=== PATIENT | male | born 1950 | race Caucasian/White ===

== ENCOUNTER → 2022-06-14 | Outpatient (CLI) | payer MEDICARE ==
--- NOTE | 2022-06-14 13:51 | US ---
EXAMINATION TYPE: US kidneys/renal and bladder DATE OF EXAM: 06/14/2022 COMPARISON: NONE CLINICAL INDICATION: Male, 72 years old with history of N28.1 RENAL CYST; h/o renal cysts, states he had a large one removed from the left this past year EXAM MEASUREMENTS: Right Kidney: 9.1 x 4.4 x 5.1 cm Left Kidney: 10.0 x 4.0 x 6.9 cm Right Kidney: 2 anechoic areas seen, probable cysts, largest on superior pole = 3.2 x 2.8 x 2.2cm Left Kidney: anechoic lesion superior pole = 1.7 x 1.3 x 1.1cm Bladder: wnl IMPRESSION: 1. Bilateral renal cysts.
== END | disposition home or self-care (01) ==
LOC: RADUSWWP 13:16
PROVIDERS: ATTEND Urology
DX: N28.1 Cyst of kidney, acquired (principal)
CPT/HCPCS: 76770

== ENCOUNTER → 2023-05-04 | Outpatient (CLI) | payer MEDICARE ==
[2023-05-04 18:15] LABS: HCT 42.6 % (39.6-50.0); MCH 30.1 pg (27.0-32.0); MCHC 32.9 g/dL (32.0-37.0); MCV 91.6 FL (80.0-97.0); Mean Platelet Volume 10.9 FL (9.5-12.2); NRBC Per 100 WBC 0 X 10*3/uL (0.00-0.01); Platelet Count 230 X 10*3/uL (140-440); RBC 4.65 X 10*6/uL (4.40-5.60); RDW 12.9 % (11.5-14.5); WBC 6.61 X 10*3/uL (4.50-10.00)
[2023-05-04 18:42] LABS: Blood Urea Nitrogen 19.5 mg/dL (9.0-27.0); Carbon Dioxide 21.8 mmol/L (21.6-31.8); Chloride 107 mmol/L (96-109); Potassium 4.6 mmol/L (3.5-5.5); Sodium 141 mmol/L (135-145)
[2023-05-05 05:40] LABS: Apolipoprotein A1 140 mg/dL (110 - 205)
[2023-05-08 09:52] LABS: Lipoprotein A <5 mg/dL (0-30)
== END | disposition home or self-care (01) ==
LOC: LABPAT 08:55
PROVIDERS: ATTEND Internal Medicine
DX: Z01.812 Encounter for preprocedural laboratory examination (principal); I25.10 Atherosclerotic heart disease of native coronary artery without angina pectoris; E78.2 Mixed hyperlipidemia
CPT/HCPCS: 36415; 80051; 82172; 82565; 83695; 84520; 85027

== ENCOUNTER 2023-05-16 08:48 | Day surgery (SDC) | payer MEDICARE ==
[~2023-05-16 08:48] MED LIST: ALPRAZolam 0.25 MG TAB PO PRN; ALPRAZolam 0.5 MG TAB PO PRN; ASPIRIN 325 MG TAB PO STA; HEPARIN SODIUM,PORCINE (1 ML) 2,500 UNIT in SODIUM CHLORIDE 0.9% 250 ML IRRIGATION PRN; HEPARIN SODIUM,PORCINE 10,000 UNIT in SODIUM CHLORIDE 0.9% 1,000 ML IRRIGATION PRN; NITROGLYCERIN SL TABS 0.4 MG TAB SUBLINGUAL PRN; SODIUM CHLORIDE 0.9% 1,000 ML in EMPTY BAG 1 BAG IV ONE
[2023-05-16] MEDS: SODIUM CHLORIDE 0.9% 1,000 ML IV ONE (08:57)
[2023-05-16 09:09] LABS: Glucose,Whole Blood 147 mg/dL (70-110)
[2023-05-16 09:41] VITALS: RESP 16; TEMP 97
[2023-05-16] MEDS: MIDAZOLAM 2 MG/2 ML VIAL IVP ONE (13:18)
[2023-05-16] MEDS: fentaNYL (PF) 50 MCG/ML 2 ML AMP IVP ONE (13:18)
[2023-05-16] MEDS: LIDOCAINE 1% INJ 10MG/ML (5 ML VIAL-PF) SQ ONE (13:23)
[2023-05-16] MEDS: VERAPAMIL SYRINGE (5 MG/10 ML) INTRAARTER ONE (13:25)
[2023-05-16] MEDS: HEPARIN SODIUM 1,000 UN/ML (10ML VL) IVP ONE (13:27)
[2023-05-16] MEDS: IOPAMIDOL-370 100ML BTL INJ ONE (13:52)
--- NOTE | 2023-05-16 16:03 | XR ---
EXAMINATION TYPE: XR chest 2V DATE OF EXAM: 05/16/2023 COMPARISON: NONE TECHNIQUE: PA and lateral views submitted. HISTORY: Pre OP cardiac surgery FINDINGS: The lungs are clear and there is no pneumothorax, pleural effusion, or focal pneumonia. Mild cardio megaly and no overt failure. Osseous structures demonstrate hypertrophic and degenerative changes of the spine. IMPRESSION: 1. No acute process.
--- NOTE | 2023-05-16 16:06 | CT ---
EXAMINATION TYPE: CT chest wo con CT DLP: 589 mGycm, Automated exposure control for dose reduction was used. DATE OF EXAM: 05/16/2023 3:57 PM COMPARISON: Chest radiograph from same day. CLINICAL INDICATION:Male, 73 years old with history of Preop Cardiac surgery; PHH, pre-op open heart TECHNIQUE: Multiple axial images were obtained through the chest. Sagittal and coronal reformats were created for review. Contrast used: (None if empty) Oral contrast used: (None if empty) FINDINGS: LUNGS/ PLEURA: The lung parenchyma appears unremarkable. AIRWAY: Patent and unremarkable. HEART: Size within normal limits.Increased density within the coronary arteries may relate to scleros is versus vascular stents. MEDIASTINUM: No gross evidence of adenopathy. VASCULATURE: No aortic aneurysm. MUSCULOSKELETAL: Moderate disc degeneration changes are present throughout the thoracolumbar spine. SOFT TISSUES/LYMPH NODES: Unremarkable. LOWER NECK: No significant findings. UPPER ABDOMEN: No significant findings. IMPRESSION: No evidence of acute process.
[2023-05-16 16:13] LABS: Appearance,Urine Clear (Clear); Bilirubin,Urine Negative (Negative); Blood,Urine Negative (Negative); Color,Urine Colorless; Glucose,Urine (UA) Negative (Negative); Ketones,Urine Negative (Negative); Leukocyte Esterase,Urine Negative (Negative); Mucus,Urine Rare /hpf; Nitrite,Urine Negative (Negative); PH, Urine 5.5 (5.0-8.0); Protein,Urine 1+ (Negative); RBC,Urine <1 /hpf (0-5); Specific Gravity,Urine 1.023 (1.001-1.035); Urobilinogen,Urine <2.0 mg/dL (<2.0)
--- NOTE | 2023-05-16 16:29 | US ---
EXAMINATION TYPE: US vein mapping BIL DATE OF EXAM: 05/16/2023 3:41 PM COMPARISON: NONE CLINICAL INDICATION: Male, 73 years old with history of PreOp Cardiac Surgery; Pre op cardiac surgery SIDE PERFORMED: bilateral TECHNIQUE: Lower extremity saphenous vein is examined and measured utilizing real time linear array sonography. Patient History: Smoker: previous Previous DVT: no Vascular Surgery: no Discoloration: no Hypertension: yes Diabetes: borderline Paralysis: no Varicosities: no Edema: no DUPLEX FINDINGS: Greater Saphenous: Color flow seen Measurements in mm: Right Greater Saphenous: Groin: 5.7 x 6.0 mm High Thigh: 2.6 x 2.9 mm Mid Thigh: 2.8 x 3.2 mm Above Knee: 2.4 x 3.1 mm Knee: 2.3 x 2.6 mm Below Knee: 2.2 x 2.5 mm Mid Calf: 1.6 x 2.3 mm At Ankle: 1.7 x 2.1 mm Left Greater Saphenous: Groin: 5.9 x 5.8 mm High Thigh: 3.0 x 3.4 mm Mid Thigh: 2.5 x 2.9 mm Above Knee: 2.3 x 2.6 mm Knee: 3.1 x 3.0 mm Below Knee: 1.7 x 2.0 mm Mid Calf: 2.1 x 2.4 mm At Ankle: 1.9 x 2.1 mm IMPRESSION: 1. Bilateral GSV measurements listed above. 2. Performing surgeon to determine viability as conduit.
--- NOTE | 2023-05-16 16:30 | US ---
EXAMINATION TYPE: Pre-Operative Non-Invasive Evaluation of the hand for Potential Radial Artery Deondre stern Measurements only DATE OF EXAM: 05/16/2023 3:41 PM CLINICAL INDICATION: Male, 73 years old with history of Left arm measurements only; pre op cardiac norris rgery SIDE PERFORMED: left TECHNIQUE: Radial artery is measured utilizing real time linear array sonography. Dominant hand: Duplex Findings: Radial Artery: Color flow seen Measurements in mm, transverse view: Left Radial: Proximal: 2.7 x 3.3 mm Mid: 3.0 x 3.1 mm Distal: 2.4 x 3.2 mm IMPRESSION: 1. Left radial measurements listed above. 2. Performing surgeon to determine viability as conduit.
--- NOTE | 2023-05-16 16:39 | P.CARDCATH ---
Description of Procedure: PROCEDURES PERFORMED: Left heart catheterization, bilateral coronary angiography, ultrasound guided arterial access INDICATION: Abnormal stress test, coronary artery calcifications CONSENT:I have discussed the risks, benefits and alternative therapies for the above-mentioned procedure and for both sedation/analgesia as well as necessary blood product administration, if indicated, as they pertain to this patient. The patient has indicated understanding and acceptance of the risks and procedures discussed. PROCEDURE: After the risks, benefits and alternatives of the above mentioned procedure explained in detail with the patient, informed consent was obtained. Patient was taken to the catheterization lab and prepped and draped in usual fashion. Ultrasound guidance was used to assess for arterial access. 1% lidocaine was used to anesthetize the right radial artery. A 6-Belarusian sheath was placed in the right radial artery using modified Seldinger technique and ultrasound guidance. Left coronary angiography was performed with a 5-Belarusian JL 3.5 catheter and right coronary angiography was performed with a 5-[place]ian FR5 catheter in various views. A 5-Bel[place]ian FR5 catheter was inserted into the left ventricle and pressure measurements were obtained. The right radial sheath was removed and a TR band was placed with hemostasis achieved. The patient tolerated the procedure well. Patient was transported back to the post catheterization holding area in stable condition. Conscious Sedation: Patient was monitored under the direct supervision of myself for conscious sedation using Versed and fentanyl for a total duration of 14 minutes HEMODYNAMICS: Aorta: 134/72 LV: 138/8, LVEDP 18 SELECTIVE CORONARY ARTERIOGRAPHY: LEFT MAIN: The left main is a large caliber vessel which bifurcates into the LAD and circumflex. There is distal left main 90% stenosis involving the ostium of the LAD and circumflex. LEFT ANTERIOR DESCENDING CORONARY ARTERY: LAD is a large caliber vessel which wraps around to the apex. There is an ostial LAD 90% heavily calcified stenosis. The mid LAD has 40-50% stenosis. LEFT CIRCUMFLEX CORONARY ARTERY: Left circumflex is a large caliber vessel with an ostial 90% circumflex stenosis. The circumflex gives off the PDA and is the dominant vessel. There are mild luminal irregularities of the remainder of the circumflex. RIGHT CORONARY ARTERY: The right coronary artery is a small caliber vessel which gives off an acute marginal branch and is nondominant vessel. There is 100% mid RCA stenosis with right to right collaterals. FINAL IMPRESSION: 1. CAD as described above including 90% left main stenosis, 90% ostial LAD, 90% ostial circumflex, 100% small nondominant RCA stenosis 2. Mildly elevated left sided filling pressures PLAN: 1. Aggressive risk factor modification per most recent ACC/AHA guidelines. 2. Evaluate for CABG
--- NOTE | 2023-05-16 16:55 | P.GSCN ---
History of Present Illness Consult date: 05/16/23 Reason for Consult: Multivessel coronary artery disease with left main disease. Requesting physician: Timmy Bernard History of present illness: This is a 73-year-old gentleman who follows on an outpatient basis for his primary care service with Dr. Chowdhury and with Dr. Bernard for his cardiology care. 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 Recently, the patient has had complaints of heartburn, feeling fatigued and shortness of breath with activity. He denies any recent fever, chills, nausea, vomiting, constipation, headache, cough, hemoptysis, hematemesis, visual disturbances, palpitations, chest pain/pressure, presyncope or syncope. Due to the patient's family history of early onset coronary artery disease and his above-mentioned symptoms he underwent a nuclear Lexiscan Cardiolite stress test which was completed on March 28, 2023 and showed abnormal Lexiscan stress test with inducible inferior and inferior lateral ischemia with a normal left ventricular ejection fraction of 55%. For further evaluation the patient underwent a transthoracic 2D echocardiogram completed on March 29, 2023 which showed a normal left ventricular size and systolic function with an ejection fr action of 55%, mild mitral valve regurgitation, mild mitral annular calcification, trace aortic valve regurgitation, mild to moderate tricuspid valve regurgitation, trace pulmonic valve regurgitation and moderately increased pulmonary artery systolic pressure of 57 mmHg. Subsequently due to the patient's symptoms he was recommended to undergo a cardiac catheterization which was completed today by Dr. Bernard. A cardiac catheterization was completed which showed triple-vessel coronary artery disease with left main disease. Due to the findings on the cardiac catheterization a consult was placed to Dr. Wolfgang Vang from cardiothoracic surgery for further evaluation and treatment recommendations including myocardial revascularization surgery. Review of Systems A 14 point review of systems was completed and was negative except as mentioned in the HPI. 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 History of Any Multi-Drug Resistant Organisms: None Reported Past Surgical History: Bowel Resection, Cholecystectomy, Tonsillectomy Additional Past Surgical History / Comment(s): Kidney cysts removed, colonoscopies, vasectomy. Past Anesthesia/Blood Transfusion Reactions: No Reported Reaction Additional Past Anesthesia/Blood Transfusion Reaction / Comm: Per pt's spouse, he has peridontal disease and teeth could come out easily. Never received blood Past Psychological History: No Psychological Hx Reported Smoking Status: Former smoker (Quit smoking over 50 years ago) Past Alcohol Use History: Rare Past Drug Use History: None Reported - Past Family History Mother Family Medical History: Deep Vein Thrombosis (DVT) Additional Family Medical History / Comment(s): Varicose Father Family Medical History: CVA/TIA, Myocardial Infarction ([place]) Additional Family Medical History / Comment(s): Father of [place] in his 50's. of stroke at 74 Medications and Allergies Home Medications Medication Instructions Recorded Confirmed Type Cholecalciferol [Vitamin D3 (25 25 mcg PO QAM 05/14/23 05/16/23 History Mcg = 1000 Iu)] Clopidogrel Bisulfate [Clopidogrel] 75 mg PO QAM 05/14/23 05/16/23 History Gabapentin 300 mg PO HS 05/14/23 05/16/23 History Losartan Potassium 100 mg PO QAM 05/14/23 05/16/23 History Super B Complex 1 tab PO QAM 05/14/23 05/16/23 History Tamsulosin [Flomax] 0.4 mg PO HS 05/14/23 05/16/23 History amLODIPine BESYLATE 10 mg PO QAM 05/14/23 05/16/23 History metFORMIN HCL [Glucophage] 850 mg PO BID-W/MEALS 05/14/23 05/16/23 History Aspirin 81 mg PO ONCE 05/16/23 05/16/23 History Allergies Allergy/AdvReac Type Severity Reaction Status Date / Time rosuvastatin Allergy Confusion Verified 05/16/23 09:03 Surgical - Exam Vital Signs Temp Pulse Resp BP Pulse Ox 97 F L 67 16 165/78 98 05/16/23 09:07 05/16/23 09:07 05/16/23 09:07 05/16/23 09:07 05/16/23 09:07 - General well developed, well nourished, no distress, no pain, chronically ill, obese - Eyes PERRL, normal ocular movement, no pale, no icteric - ENT normal pinna, normal nares, normal mucosa, no congestion, decreased hearing - Neck Neck is supple, no lymphadenopathy. no masses, no bruits, trachea midline, no venous distension - Respiratory Lungs essentially clear throughout. Respirations are symmetrical and nonlabored. No wheezes, rhonchi or crackles. - Cardiovascular Regular rhythm and rate. S1 and S2 present, negative for S3, gallop or murmur. - Abdomen Abdomen is soft, nontender and nondistended. Active bowel sounds present all 4 abdominal quadrants. No guarding or rigidity. No organomegaly appreciated. - Genitourinary Deferred - Rectum Deferred - Integumentary Skin is warm and dry. No clubbing or cyanosis is present. no rash, no growths, no abnormal pigmentation - Neurologic No focal deficits. - Musculoskeletal Moves all 4 extremities. Residual chronic left-sided weakness from previous TIA. - Psychiatric oriented to time, oriented to person, oriented to place, speech is normal, memory intact Results - Labs Abnormal Lab Results - Last 24 Hours (Table) 05/16/23 05/16/23 Range/Units 09:06 16:00 POC Glucose (mg/dL) 147 H (70-110) mg/dL Urine Protein 1+ H (Negative) Urine Mucus Rare H (None) /hpf - Imaging Additional studies: Cardiac catheterization films reviewed by Dr. Khai Vang. Assessment and Plan Assessment: Multivessel coronary artery disease with left main disease Hypertension Hyperlipidemia History of TIA x 4, with some residual left-sided weakness Diabetes mellitus type 2 History of statin intolerance Abnormal stress test Chronic lower extremity edema Hard of hearing Remote history of nicotine dependence, quit smoking around 50 years ago Benign prostatic hypertrophy Peripheral neuropathy Family history of early onset coronary artery disease with his dad having a myocardial infarction in his mid 50s Plan: The patient was seen and examined in the extended stay unit in conjunction with Dr. Vang from cardiothoracic surgery. The patient's chart and diagnostics were reviewed. The patient's was present at his bedside during Dr. Vang's review of the cardiac catheterization films. Dr. Vang discussed treatment options with the patient and the patient's including myocardial revascularization surgery. The usual course of myocardial vascularization surgery was discussed with the patient, risks and benefits of surgery were discussed, knowing and understanding the risks the patient wished to proceed with the surgical option. The patient is currently on Plavix and would need to be held 5 to 7 days prior to myocardial vascularization surgery. Preoperative testing and preoperative teaching has been initiated. A 5 m walk test was completed with the patient and the patient tolerated well. Time 1: 2.33 seconds, time 2: 2.51 seconds, time 3: 2.71 seconds. A clinical frailty scale risk or was completed with the results showing 2. Medical management and other comorbidities per primary care and cardiology services. Once the patient's preoperative testing has been obtained and reviewed, and STS risk or will be calculated and discussed with the patient. The patient will be discharged home per cardiology and will be scheduled for an elective myocardial vascularization surgery as an outpatient with the date to follow. Thank you Dr. Bernard for this consult and we look forward to working with you in the care of this patient. I have personally seen and examined the patient, performed the documentation and the assessment and plan as written. Number of minutes spent on the visit: 30. ANGELA Alberto Attending Addendum: Pt seen and evaluated with AIRCRAFT ASSEMBLER above. Agree with with his assessment and plan. I spent 45 minutes reviewing the data and plan of care with the patient and care team. We will plan for elective CABG. Time with Patient: Greater than 30
--- NOTE | 2023-05-16 17:26 | US ---
EXAMINATION TYPE: US arterial LE multi level DATE OF EXAM: 05/16/2023 3:59 PM CLINICAL INDICATION: Male, 73 years old with history of Ankle Brachial Index (BECKIE) ; Pre op cardiac s urgery History of: Smoker: no Hypertension: yes Diabetic: yes Hyperlipidemia: no TIA/CVA: yes Previous Vascular Surgery: no PA: no Vascular Ulcers: no Claudication: no Gangrene: no Doppler Waveforms: Right: Multiphasic Left: Multiphasic Pulse Volume Recording: Pressure Gradients: Right Brachial Pressure: deferred Left Brachial Pressure: 157 Ankle-Brachial Indices: Right: 1.25 Left: 1.20 Toe Brachial Indices: Right: 0.83 Left: 0.83 IMPRESSION: 1. Normal ankle-brachial indices bilaterally. 2. Toe brachial indices suggest mild disease.
--- NOTE | 2023-05-16 17:29 | US ---
EXAMINATION TYPE: US carotid duplex BILAT DATE OF EXAM: 05/16/2023 COMPARISON: NONE CLINICAL INDICATION: Male, 73 years old with history of Pre-Op Cardiac Surgery; Pre op cardiac surger y TECHNIQUE: Carotid duplex ultrasound examination. Indirect Doppler criteria was utilized. FINDINGS: EXAM MEASUREMENTS: RIGHT: Peak Systolic Velocity (PSV) cm/sec ----- Right CCA: 72.1 ----- Right ICA: 87.1 ----- Right ECA: 95.6 ICA/CCA ratio: 1.21 RIGHT: End Diastole cm/sec ----- Right CCA: 15.6 ----- Right ICA: 16.9 ----- Right ECA: 0.0 LEFT: Peak Systolic Velocity (PSV) cm/sec ----- Left CCA: 65.8 ----- Left ICA: 69.8 ----- Left ECA: 136 ICA/CCA ratio: 1.06 LEFT: End Diastole cm/sec ----- Left CCA: 11.3 ----- Left ICA: 15.6 ----- Left ECA: 11.7 VERTEBRALS (direction of flow): Right Vertebral: Antegrade Left Vertebral: Antegrade Rhythm: Normal AGRICULTURAL EQUIPMENT SALESPERSON NOTES: Mild plaque bilateral bifurcations. Mildly increased velocities left ECA IMPRESSION: Less than 50% stenosis of bilateral carotid bifurcations. Criteria for Assigning % of Stenosis / Diameter reduction (Estimation based on the indirect measurements of the internal carotid artery velocities (ICA PSV). 1. Normal (no stenosis)=ICA PSV < 125 cm/s: ratio < 2.0: ICA EDV<40 cm/s. 2. Less than 50% stenosis=ICA PSV < 125 cm/s: ratio < 2.0: ICA EDV<40 cm/s. 3. 50 to 69% stenosis=ICA PSV of 125 to 230 cm/s: ration 2.0 ? 4.0: ICA EDV 40-100 cm/s. 4. Greater than 70% stenosis to near occlusion= ICA PSV > 230 cm/s: ratio > 4.0: ICA EDV > 100 cm/s. 5. Near occlusion= ICA PSV velocities may be low or undetectable: variable ratio and ICA EDV. 6. Total occlusion=unable to detect flow.
[2023-05-16 17:58] VITALS: BP 153/70; PULSE 69
--- NOTE | 2023-05-17 09:52 | CA ---
Transthoracic Echo Report Name: Erick Bunn Age: 73 Gender: M : 1950 Exam Date: 05/16/2023 16:23 Exam Location: [place] [facility] Ht (in): 67 Wt (lb): 214 Ordering Physician: Brett Solis Attending/Referring Phys: Will AVILES Production Supervisor Trainee Lotus Mar RDCS Procedure CPT: Indications: preop cardiac surgery Cardiac Hx: Technical Quality: Technically difficult study Contrast 1: Total Dose (mL): Contrast 2: Total Dose (mL): MEASUREMENTS (Male / Female) Normal Values 2D ECHO LV Diastolic Diameter PLAX 3.7 cm 4.2 - 5.9 / 3.9 - 5.3 cm LV Systolic Diameter PLAX 2.5 cm IVS Diastolic Thickness 1.3 cm 0.6 - 1.0 / 0.6 - 0.9 cm LVPW Diastolic Thickness 1.1 cm 0.6 - 1.0 / 0.6 - 0.9 cm LV Relative Wall Thickness 0.7 RV Internal Dim ED PLAX 3.0 cm LA Volume 48.7 cm??? 18 - 58 / 22 - 52 cm??? LA Volume Index 22.4 cm???/m??? 16 - 28 cm???/m??? M-MODE Aortic Root Diameter MM 3.3 cm LA Systolic Diameter MM 4.5 cm LA Ao Ratio MM 1.3 AV Cusp Separation MM 2.0 cm DOPPLER AV Peak Velocity 110.4 cm/s AV Peak Gradient 4.9 mmHg AV Mean Velocity 75.8 cm/s AV Mean Gradient 2.5 mmHg AV Velocity Time Integral 23.9 cm LVOT Peak Velocity 105.4 cm/s LVOT Peak Gradient 4.4 mmHg LVOT Velocity Time Integral 24.3 cm MV Area PHT 2.8 cm??? Mitral E Point Velocity 72.3 cm/s Mitral A Point Velocity 106.4 cm/s Mitral E to A Ratio 0.7 MV Deceleration Time 266.7 ms MV E' Velocity 5.1 cm/s Mitral E to MV E' Ratio 14.3 TR Peak Velocity 230.9 cm/s TR Peak Gradient 21.3 mmHg Right Ventricular Systolic Press 26.3 mmHg FINDINGS Left Ventricle Mildly increased left ventricular wall thickness. Left ventricular cavity size normal. Normal left ventricular systolic function with no obvious regional wall motion abnormalities. Left ventricular ejection fraction is estimated at 55-60 %. Grade 1 diastolic dysfunction. Right Ventricle Normal right ventricular size and function. Right ventricular systolic pressure within normal limits. Right Atrium Normal right atrial size. Left Atrium Normal left atrial size. Mitral Valve Structurally normal mitral valve. No mitral stenosis, regurgitation or prolapse. Aortic Valve Trileaflet aortic valve. No aortic stenosis. Trace aortic regurgitation. Tricuspid Valve Structurally normal tricuspid valve. Mild tricuspid regurgitation. Pulmonic Valve Structurally normal pulmonic valve. Trace pulmonic regurgitation. Pericardium No pericardial effusion. Aorta Normal size aortic root and proximal ascending aorta. CONCLUSIONS Technically difficult study. Left ventricular ejection fraction is estimated at 55-60 %. Grade 1 diastolic dysfunction. Normal RV size and function No significant valvular dysfunction No pericardial effusion. . Previewed by: Dr Herman Dow (Electronically Signed) Final Date: 17 May 2023 09:51
== END 2023-05-16 17:25 | disposition home or self-care (01) ==
LOC: CATHCVL 08:48
PROVIDERS: ATTEND Internal Medicine
DX: I08.3 Combined rheumatic disorders of mitral, aortic and tricuspid valves (principal); I25.10 Atherosclerotic heart disease of native coronary artery without angina pectoris; I10 Essential (primary) hypertension; G40.909 Epilepsy, unspecified, not intractable, without status epilepticus; E78.5 Hyperlipidemia, unspecified; E11.42 Type 2 diabetes mellitus with diabetic polyneuropathy; I25.2 Old myocardial infarction; N40.0 Benign prostatic hyperplasia without lower urinary tract symptoms; F17.200 Nicotine dependence, unspecified, uncomplicated; Z79.02 Long term (current) use of antithrombotics/antiplatelets; Z79.84 Long term (current) use of oral hypoglycemic drugs; Z85.038 Personal history of other malignant neoplasm of large intestine; Z86.73 Personal history of transient ischemic attack (TIA), and cerebral infarction without residual deficits; Z79.899 Other long term (current) drug therapy
CPT/HCPCS: 94150; 93306; 93458; 76937; 81001; 87070; 71046; 93931; 93970; 93922; 93880; 71250; 99152; C1769; C1894; J2250; J2001; J3010; J1644; Q9967

== ENCOUNTER → 2023-05-23 | Outpatient (CLI) | payer MEDICARE ==
[2023-05-23 09:31] LABS: Prothrombin Time 10.5 sec (10.0-12.5)
[2023-05-23 16:25] LABS: HCT 45.2 % (39.6-50.0); HGB 14.8 g/dL (13.0-17.0); MCH 30.3 pg (27.0-32.0); MCHC 32.7 g/dL (32.0-37.0); MCV 92.4 FL (80.0-97.0); Mean Platelet Volume 11.1 FL (9.5-12.2); NRBC Per 100 WBC 0 X 10*3/uL (0.00-0.01); Platelet Count 253 X 10*3/uL (140-440); RBC 4.89 X 10*6/uL (4.40-5.60); RDW 12.8 % (11.5-14.5); WBC 6.84 X 10*3/uL (4.50-10.00)
[2023-05-23 16:44] LABS: ALT 43 U/L (10-49); AST 29 U/L (14-35); Albumin 4.4 g/dL (3.8-4.9); Albumin/Globulin Ratio 1.76 Ratio (1.60-3.17); Alkaline Phosphatase 85 U/L (41-126); BUN/Creat Ratio 16.92 Ratio (12.00-20.00); Calcium 10.5 mg/dL (8.7-10.3); Chloride 108 mmol/L (96-109); Chol/HDL Ratio 3.39 Ratio; Globulin 2.5 g/dL (1.6-3.3); Glucose 188 mg/dL (70-110); Hepatitis A Antibody IgM Nonreactive (Nonreactive); Hepatitis B Core IgM Nonreactive (Nonreactive); Hepatitis B Surface Antigen Nonreactive (Nonreactive); Hepatitis C IgG Antibody Nonreactive (Nonreactive); LDL Cholesterol,Calculated 57.9 mg/dL (0.0-131.0); Magnesium 1.5 mg/dL (1.5-2.4); Potassium 4.6 mmol/L (3.5-5.5); Sodium 141 mmol/L (135-145); Total Bilirubin 0.3 mg/dL (0.3-1.2); Total Protein 6.9 g/dL (6.2-8.2)
[2023-05-23 17:13] LABS: Appearance,Urine Clear (Clear); Bilirubin,Urine Negative (Negative); Blood,Urine Negative (Negative); Color,Urine Dark Yellow (Yellow); Ketones,Urine Negative (Negative); Nitrite,Urine Negative (Negative); Specific Gravity,Urine 1.019 (1.001-1.030); Urobilinogen,Urine 0.2 E.U./DL
[2023-05-23 17:16] LABS: Bacteria,Urine None Seen (None Seen)
== END | disposition home or self-care (01) ==
LOC: LABPAT 08:45
PROVIDERS: ATTEND Thoracic Surgery (Cardiothoracic Vascular Surgery)
DX: Z01.812 Encounter for preprocedural laboratory examination (principal)
CPT/HCPCS: 36415; 80053; 80061; 80074; 81001; 83036; 83735; 84443; 85027; 85610; 85730; 86850; 86900; 86901; 86920; 87086

== ENCOUNTER 2023-05-28 08:00 | Inpatient (IN) | payer MEDICARE ==
[2023-05-29] MEDS: METOPROLOL TARTRATE 12.5 MG TAB PO ONE (06:10)
[2023-05-29] MEDS: ATORVASTATIN 10 MG TAB PO ONE (06:10)
[2023-05-29] MEDS: LACTATED RINGERS 1,000 ML IV ONE (06:15)
[2023-05-29 06:35] LABS: Glucose,Whole Blood 149 mg/dL (70-110)
[2023-05-29] MEDS ORDERED: SUCCINYLCHOLINE CHLORIDE 200 MG/10 ML VIAL IV ONE (07:55)
[2023-05-29] MEDS ORDERED: VECURONIUM 10 MG VIAL IV ONE (07:55)
[2023-05-29] MEDS ORDERED: HEPARIN SODIUM,PORCINE 10,000 UNIT/ML 1 ML VIAL ONE (07:55)
[2023-05-29] MEDS ORDERED: fentaNYL (PF) 50 MCG/ML 50 ML VIAL ONE (07:55)
[2023-05-29] MEDS ORDERED: ePHEDrine 50 MG/ML 1 ML VIAL ONE (07:55)
[2023-05-29] MEDS ORDERED: PROPOFOL 10 MG/ML 20 ML VIAL IV ONE (07:55)
[2023-05-29] MEDS ORDERED: MIDAZOLAM HCL 10 MG/10 ML VIAL ONE (07:55)
[2023-05-29] MEDS ORDERED: PROTAMINE SULFATE 10 MG/ML 25 ML VIAL IV ONE (07:55)
[2023-05-29] MEDS ORDERED: PHENYLEPHRINE 10 MG/ML VIAL ONE (07:55)
[2023-05-29] MEDS: PAPAVERINE 360 MG in SODIUM CHLORIDE 0.9% 90 ML IV ONE (07:58)
[2023-05-29] MEDS: SODIUM CHLORIDE 0.9% 500 ML 500 ML with HEPARIN SODIUM,PORCINE (1 ML) 5,000 UNIT IV ONE (07:58)
[2023-05-29] MEDS: ceFAZolin 1,000 MG in SODIUM CHLORIDE 0.9% 1,000 ML IRRIGATION ONE (07:58)
[2023-05-29] MEDS: SODIUM CHLORIDE 0.9% 50 ML with ceFAZolin 2,000 MG IV ONE (07:58)
[2023-05-29 08:41] LABS: ABG Base Excess -3.9 mmol/L; ABG Glucose Whole Blood 136 mg/dL (75-99); ABG HCO3 21 mmol/L (21-25); ABG Hematocrit 37 % (34.0-46.0); ABG Ionized Calcium 5.1 mg/dL (4.5-5.3); ABG Lactic Acid Whole Blood 1.7 mmol/L (0.5-1.6); ABG PCO2 35 mmHg (35-45); ABG PH 7.38 (7.35-7.45); ABG PO2 162 mmHg (83-108); ABG Potassium Whole Blood 4.9 mmol/L (3.4-4.5); ABG Sodium Whole Blood 140 mmol/L (135-146); Allen Test Performed? Yes
[2023-05-29 09:29] LABS: ABG Base Excess -4.9 mmol/L; ABG Glucose Whole Blood 129 mg/dL (75-99); ABG HCO3 21 mmol/L (21-25); ABG Hematocrit 36 % (34.0-46.0); ABG Oxygen Saturation 98.3 % (94-97); ABG PCO2 41 mmHg (35-45); ABG PH 7.32 (7.35-7.45); ABG PO2 133 mmHg (83-108); ABG Potassium Whole Blood 4.8 mmol/L (3.4-4.5); ABG Sodium Whole Blood 139 mmol/L (135-146); Allen Test Performed? Yes
[2023-05-29 09:55] LABS: ABG Base Excess -4.5 mmol/L; ABG Glucose Whole Blood 151 mg/dL (75-99); ABG HCO3 21 mmol/L (21-25); ABG Hematocrit 37 % (34.0-46.0); ABG Lactic Acid Whole Blood 1.8 mmol/L (0.5-1.6); ABG Oxygen Saturation 98.9 % (94-97); ABG PCO2 38 mmHg (35-45); ABG PH 7.35 (7.35-7.45); ABG PO2 154 mmHg (83-108); ABG Potassium Whole Blood 4.7 mmol/L (3.4-4.5); ABG Sodium Whole Blood 139 mmol/L (135-146); Allen Test Performed? Yes
[2023-05-29 10:25] LABS: ABG Base Excess -4.6 mmol/L; ABG Glucose Whole Blood 144 mg/dL (75-99); ABG HCO3 20 mmol/L (21-25); ABG Hematocrit 36 % (34.0-46.0); ABG Lactic Acid Whole Blood 1.4 mmol/L (0.5-1.6); ABG Oxygen Saturation 98.5 % (94-97); ABG PCO2 36 mmHg (35-45); ABG PH 7.36 (7.35-7.45); ABG PO2 137 mmHg (83-108); ABG Sodium Whole Blood 140 mmol/L (135-146); Allen Test Performed? Yes
[2023-05-29 10:54] LABS: ABG Base Excess -4.4 mmol/L; ABG Glucose Whole Blood 136 mg/dL (75-99); ABG HCO3 20 mmol/L (21-25); ABG Hematocrit 36 % (34.0-46.0); ABG Lactic Acid Whole Blood 1.5 mmol/L (0.5-1.6); ABG Oxygen Saturation 98.8 % (94-97); ABG PCO2 35 mmHg (35-45); ABG PH 7.37 (7.35-7.45); ABG PO2 127 mmHg (83-108); ABG Sodium Whole Blood 141 mmol/L (135-146); Allen Test Performed? Yes
--- NOTE | 2023-05-29 10:54 | P.ANPRN ---
Procedure Note - Anesthesia - Invasive Line Right Central Line Time Out Performed: Yes (0732) Date of Procedure: 05/29/23 Time of Procedure: 07:33 Location of Patient: Phase I Preparation: Sterile Prep, Sterile Dressing Central Line Location: Internal Jugular (right IJ Cordis) Ultrasound Used: Yes Purpose - Visualization and Identification of Vasculature: Yes Needle Guage: 18g angio Image Stored and Saved: Yes Narrative: Invasive line placement per sterile protocol utilized. Anesthesia note Procedure: Right internal jugular central venous catheter insertion: 8.5-Gabones[place] Cordis Sterile protocol followed. Right neck prepped. Ultrasound used. Lidocaine 1% used. Using ultrasound local anesthetic was instilled site over right Internal Jugular vein. Angiocath was used to gain access via ultrasound. Once free flow non-pulsatile blood flow was confirmed, 12 inch extension tubing was then placed on Angiocath. Once central venous pressure was confirmed, J-wire was then placed through Angiocath. Angiocath was then withdrawn. Local was instilled at J-wire site. Small skin wagner was then made with provided sterile scalpel. 8.5- [place] Cordis was then inserted over the wire while maintaining control of wire at all times. Uneventful insertion with dilation. Free flow nonpulsatile blood flow through Cordis. Hooked up to IV tubing. Secured with suture. Dressings applied. Drapes Removed. Attempts x1.
--- NOTE | 2023-05-29 10:55 | P.ANPRN ---
Procedure Note - Anesthesia - Invasive Line Right [place] Time Out Performed: Yes (0732) Date of Procedure: 05/29/23 Time of Procedure: 07:41 Location of Patient: Phase I Preparation: Sterile Prep, Sterile Dressing [place] Line Location: Internal Jugular (right IJ) Ultrasound Used: No Purpose - Visualization and Identification of Vasculature: No Image Stored and Saved: No Narrative: Invasive line placement per sterile protocol utilized. Anesthesia note Procedure right [place] catheter placed through right internal jugular central venous catheter Sterile protocol maintained from previous procedure. [place] catheter sterilely placed in sheath and flushed prior to insertion. After advancing 15 cm [place] catheter was then slowly inserted with balloon up. Advanced through CVP, RV to PA waveform. [place] catheter wedged around 54 cm. Balloon down. Catheter withdrawn 5 cm. . No wedge. Proximal and distal sites locked on sheath. Attempts x1. Sterile drapes removed and dressings applied.
--- NOTE | 2023-05-29 10:56 | P.ANPRN ---
Procedure Note - Anesthesia - JADA Intraop Pre Bypass JADA Intraop - Anesthesia Indication: cabg off pump Date of Procedure: 05/29/23 Pre-operative Diagnosis: cad Post-operative Diagnosis: same Surgeon: Khai Vang Left Ventricle: wnl Ejection Fraction: Normal Regional Wall Motion Abnormalities: None Left Ventricle Hypertrophy: No R. Ventricle Function: Normal Anatomy: Trileaflet Aortic Stenosis: None Aortic Regurgitation: None Mitral Stenosis: None Mitral Regurgitation: None Tricuspid Stenosis: None Tricuspid Regurgitation: Trace Pulmonic Stenosis: None Pulmonic Regurgitation: None R. Atrial Dilation: No R. Atrial PFO: No L. Atrial Dilation: No Aortic Dissection: No Aortic Calcification: None Plural Effusion: None
[2023-05-29 11:36] LABS: ABG Base Excess -4.8 mmol/L; ABG Glucose Whole Blood 137 mg/dL (75-99); ABG HCO3 20 mmol/L (21-25); ABG Hematocrit 34 % (34.0-46.0); ABG Ionized Calcium 4.8 mg/dL (4.5-5.3); ABG Lactic Acid Whole Blood 1.8 mmol/L (0.5-1.6); ABG Oxygen Saturation 95.9 % (94-97); ABG PCO2 37 mmHg (35-45); ABG PH 7.35 (7.35-7.45); ABG PO2 78 mmHg (83-108); ABG Potassium Whole Blood 3.6 mmol/L (3.4-4.5); ABG Sodium Whole Blood 141 mmol/L (135-146); Allen Test Performed? Yes
[2023-05-29 11:46] LABS: ABG Lactic Acid Whole Blood 2.2 mmol/L (0.5-1.6)
[2023-05-29] MEDS ORDERED: Magnesium Replacement Protocol 1 EACH MISC MISCELLANE PRN (11:51)
[2023-05-29] MEDS ORDERED: hydrALAZINE HCL 20 MG/ML 1 ML VIAL IVP PRN (11:51)
[2023-05-29] MEDS ORDERED: DEXTROSE 50% SYRINGE 50 ML IVP PRN ×2 (11:51)
[2023-05-29] MEDS ORDERED: METOCLOPRAMIDE 5 MG/ML 2 ML VIAL IVP PRN (11:51)
[2023-05-29] MEDS ORDERED: Potassium Replacement Protocol 1 EACH MISC MISCELLANE PRN (11:51)
[2023-05-29] MEDS ORDERED: IPRATROPIUM-ALBUTEROL 3 ML NEB INHALATION PRN (11:51)
[2023-05-29] MEDS ORDERED: ONDANSETRON 4 MG/2 ML VIAL IVP PRN (11:51)
[2023-05-29] MEDS ORDERED: BENZOCAINE/MENTHOL LOZENG 1 EACH LOZENGE MUCOUS MEM PRN (11:51)
--- NOTE | 2023-05-29 11:58 | P.OP ---
Date of Procedure: 05/29/23 Preoperative Diagnosis: 3v CAD HTN HLD DM TIA BPH Colon CA Postoperative Diagnosis: Same Procedure(s) Performed: 1. Off pump coronary artery bypass grafting x 4. Left internal thoracic artery (in-situ) to left anterior descending coronary artery. Radial artery from aorta to obtuse marginal artery. Saphenous vein from aorta to posterior descending coronary artery. 2. Left atrial appendage ligation using #35mm AtriClip 3. Endoscopic left radial and right greater saphenous vein harvest 4. Graft flow measurements using the medi-stim flow meter system 5. Trans-esophageal echo Implants: #35 AtriClip Anesthesia: GETA Surgeon: Khai Vang Railway Signal Operator #1: Brett Solis Railway Signal Operator #2: Christoph Jean-Baptiste Estimated Blood Loss (ml): 250 Pathology: none sent Condition: critical Disposition: ICU Indications for Procedure: This patient is a 73 year-old M with a the PMH noted above who developed worsening SOB and fatigue. He underwent stress test which was positive. Coronary angiography revealed significant 3v CAD. His STS risk of morbidity and mortality was discussed with the patient and he was in agreement to proceed with CABG which is what we recommended. Operative Findings: JODI 1.75mm good conduit. LAD 1.5mm good target. BOO-LAD Flow 72ml/min, P.I. 2.4 Radial artery 2.25mm good conduit. OM 1.6mm good target. RA-OM Flow 56ml/min, P.I. 1.6 Saphenous vein 2.25mm good conduit. PDA 1.5mm good target. CAM 1.0mm not great targets. SVG-PDA Flow 12ml/min, P.I. 3.1 Description of Procedure: The patient underwent central line, right radial arterial line, and [place] Swetha catheter placement in the pre-operative suite by the anesthesia team. The patient was then brought to the operating room and placed in the supine position. General anesthesia was induced and the patient was prepped from the chin to the ankles in the usual sterile fashion. A time-out was performed and antibiotics were given. A midline incision was made on the chest and carried down to bone. A median sternotomy was performed. Hemostasis on the bone was achieved using electrocautery. The left pleura was entered and the left internal thoracic artery was harvested in a skeletonized fashion. Simultaneously a physician curriculum assistant harvested the RIGHT greater saphenous vein and left radial artery in an endoscopic fashion. The patient was systemically heparinized and the JODI was transected and placed in a papaverine jacuzzi. A left sided chest tube was placed. The pericardium was incised in a reverse T-fashion and a pericardial cradle was created. The right pleura was opened. Stay sutures were placed. #35mm AtriClip was placed on the left atrial appendage. With ACT > 250, the octopus stabilizer was placed on the mid LAD which was a good target. An ateriorotomy was made and 1.5mm shunt inserted. An end to side anastomosis between the JODI and LAD was performed using a running 7-0 prolene. The shunt was removed prior to tieing down the suture. Next stay sutures were placed on the diaphragm near the IVC and oblique sinus. The posterior descending coronary artery was exposed and appeared to be a good target. The postero-lateral branches of the circumflex coronary artery were too small for bypass. An arteriorotomy was made and it was a good target. 1.5mm shunt was insered and an end to side anastomosis between the saphenous vein and PDA was performed using a running 7-0 prolene again removing the shunt prior to tieing down the suture. Next, the obtuse marginal artery was exposed and stabilized. It was somewhat disease but a good target. Arteriotomy was made and 1.5mm shunt was inserted. An end to side anastomosis between the radial and the OM was constructed using a running 7-0 prolene. Again, shunt was removed without difficulty. Next, the heartstring device was used to create aortotomy x 2 and both the radial and saphenous vein were fastened to the ascending aorta in an end to side fashion using a running 5-0 prolene. Both heartstring devices were retrieved prior to tying down the suture. Graft flows were measured and they were excellent. At this point, protamine was given and hemostasis was secured. A 32F chest tube and 19F david were placed in the mediastinum and right pleura respectively. Temporary v-wires were placed on the anterior RV. The pericardium was reapproximated partially and the sternum was closed with pioneer cables and layers of suture. The leg was closed in layers as well. The patient tolerated the procedure without any significant hypotension and was transferred to CVICU in critical condition on only nitro gtt.
[2023-05-29] MEDS: NITROGLYCERIN-D5W PMX 50 MG in DEXTROSE/WATER 1 250ML.BAG IV SCH (12:04)
[2023-05-29 12:07] LABS: Glucose,Whole Blood 136 mg/dL (70-110)
[2023-05-29] MEDS: INSULIN REGULAR 100 UNIT in SODIUM CHLORIDE 0.9% 100 ML IV SCH (12:20)
[2023-05-29 12:34] LABS: Ionized Calcium 4.9 mg/dL (4.5-5.3)
[2023-05-29] MEDS: IPRATROPIUM-ALBUTEROL 3 ML NEB INHALATION SCH (12:34)
[2023-05-29 12:35] LABS: ABG Base Excess -5.7 mmol/L; ABG HCO3 20 mmol/L (21-25); ABG PCO2 39 mmHg (35-45); ABG PH 7.33 (7.35-7.45); ABG PO2 147 mmHg (83-108); ABG TCO2 22 mmol/L (19-24); Allen Test Performed? Yes
[2023-05-29 12:35] LABS: INR 1.2 (<1.2); Partial Thromboplastin Time 24.7 sec (22.0-30.0); Prothrombin Time 12.4 sec (10.0-12.5)
[2023-05-29 12:40] LABS: ABG Oxygen Saturation 98.2 % (94-97)
[2023-05-29 12:49] LABS: Basophils # (A) 0.1 k/uL (0-0.2); Basophils % (A) 1 %; Eosinophils # (A) 0.2 k/uL (0-0.7); Eosinophils % (A) 2 %; HCT 33.8 % (39.0-53.0); HGB 11.2 gm/dL (13.0-17.5); Lymphocytes # (A) 1.3 k/uL (1.0-4.8); Lymphocytes % (A) 12 %; MCHC 33.1 g/dL (31.0-37.0); MCV 93.6 fL (80.0-100.0); Monocytes # (A) 0.4 k/uL (0-1.0); Monocytes % (A) 4 %; Neutrophils # (A) 9.1 k/uL (1.3-7.7); Neutrophils % (A) 81 %; Platelet Count 170 k/uL (150-450); RBC 3.61 m/uL (4.30-5.90); RDW 12.7 % (11.5-15.5); WBC 11.2 k/uL (3.8-10.6)
[2023-05-29] MEDS: AMIODARONE 360 MG in DEXTROSE 5% IN WATER 200 ML IV ONE (12:52)
[2023-05-29 12:54] LABS: ALT 146 U/L (4-49); AST 169 U/L (17-59); African American GFR (CKD) 73 (>60 ml/min/1.73 sqM); Albumin 3.5 g/dL (3.5-5.0); Alkaline Phosphatase 52 U/L (38-126); Anion Gap 11 mmol/L; Blood Urea Nitrogen 21 mg/dL (9-20); Calcium 8.4 mg/dL (8.4-10.2); Carbon Dioxide 16 mmol/L (22-30); Chloride 112 mmol/L (98-107); Glucose 132 mg/dL (74-99); Magnesium 1.4 mg/dL (1.6-2.3); Non-African American GFR(CKD) 64 (>60 ml/min/1.73 sqM); Sodium 139 mmol/L (137-145); Total Bilirubin 0.3 mg/dL (0.2-1.3); Total Protein 5.7 g/dL (6.3-8.2)
[2023-05-29] MEDS: LACTATED RINGERS 1,000 ML IV SCH (12:56)
[2023-05-29 13:03] LABS: Glucose,Whole Blood 136 mg/dL (70-110)
--- NOTE | 2023-05-29 13:22 | XR ---
EXAMINATION TYPE: XR chest 1V portable DATE OF EXAM: 05/29/2023 12:54 PM CLINICAL INDICATION:Male, 73 years old with history of Post Operative Cardiac Surgery; [facility] COMPARISON: 05/16/2023. TECHNIQUE: XR chest 1V portable Frontal view of the chest. FINDINGS: Lungs/Pleura: There is no evidence of pleural effusion, focal consolidation, or pneumothorax. Pulmonary vascularity: Unremarkable. Heart/mediastinum: Cardiomediastinal silhouette is prominent in size. Left atrial appendage occlusion device is present. Musculoskeletal: Multiple level degenerative disc disease changes seen throughout the spine. Midline sternotomy wires are noted. Other findings: None Lines/Tubes: Endotracheal tube with distal tip 4.3 cm above the trav. Nasogastric tube with its distal tip and side-port projecting under the diaphragm. Drainage tubes with tips projecting over the mediastinum. Bilateral thoracotomy tubes are present without evidence of pneumothorax. There is a [place]-Swetha catheter with tip projecting over the spine. IMPRESSION: Postsurgical changes lines and tubes as above. No evidence for acute process.
[2023-05-29] MEDS: ACETAMINOPHEN IV (For NPO) 1,000 MG in EMPTY BAG 1 BAG IVPB SCH (13:34)
--- NOTE | 2023-05-29 14:00 | P.CNPUL ---
History of Present Illness Consult date: 05/29/23 Requesting physician: Khai Vang Reason for consult: other Chief complaint: ICU management/ventilator management. History of present illness: Pulmonary consult dated May 29, 2023. 73-year-old male seen in the intensive care unit, room 260. He just came back from the operating room, having had an off-pump three-vessel bypass surgery, with Dr. Vang. The patient had a BOO to LAD bypass, left radial to obtuse marginal bypass, and SVG to PDA bypass. The patient is on the mechanical venti lator. Ventilator settings include volume assist-control, rate 18, tidal volume 400, FiO2 70%, PEEP of 5. Blood gases show pO2 147, pCO2 of 39, pH is 7.33. The patient's cardiac output is 5.5 with an index of 2.6. The patient is on insulin drip at 1 unit an hour, nitroglycerin at 5 mcg/min, lactated Ringer's at 50 cc an hour, propofol at 25 mcg/kg/min, and amiodarone at 1 mg/min. The patient has a history of hypertension, hyperlipidemia, TIA, with some residual left-sided weakness, diabetes mellitus, BPH, peripheral neuropathy, colon cancer status post colon resection, and a family history of cardiac disease. Current labs include a white count 11.2, hemoglobin 11.2, hematocrit 33.8, and a platelet count is 170,000. Sodium 139, potassium 4, chlorides 112, CO2 16, BUN 21, and creatinine 1.13. Glucose is 136. Albumin is 3.5. His x-ray shows some postsurgical changes, without anything acute. Endotracheal tube is 4 cm above the trav. Review of Systems REVIEW OF SYSTEMS: Cannot be obtained as the patient is currently on the ventilator. CONSTITUTIONAL: [Negative.] NEUROLOGIC: [ Negative.] HEENT: [ Negative.] CARDIAC: [Negative.] PULMONARY: [Negative.] GI: [Negative.] : [Negative.] RHEUMATOLOGIC: [ Negative.] IMMUNOLOGIC: [ Negative.] ENDOCRINE: [Negative. 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 Past Anesthesia/Blood Transfusion Reactions: No Reported Reaction Additional Past Anesthesia/Blood Transfusion Reaction / Comment(s): Per pt's spouse, he has peridontal disease and teeth could come out easily. Never received blood Smoking Status: Former smoker - Past Family History Father Family Medical History: CVA/TIA, Myocardial Infarction ([place]) Additional Family Medical History / Comment(s): of CVA at 74. father of [place] in his 50s. Mother Family Medical History: Deep Vein Thrombosis (DVT) Additional Family Medical History / Comment(s): varicose veins. Medications and Allergies Home Medications Medication Instructions Recorded Confirmed Type Cholecalciferol [Vitamin D3 (25 25 mcg PO QAM 05/14/23 05/23/23 History Mcg = 1000 Iu)] Clopidogrel Bisulfate [Clopidogrel] 75 mg PO QAM 05/14/23 05/23/23 History Gabapentin 300 mg PO BID 05/14/23 05/23/23 History Losartan Potassium 100 mg PO QAM 05/14/23 05/23/23 History Super B Complex 1 tab PO QAM 05/14/23 05/23/23 History Tamsulosin [Flomax] 0.4 mg PO HS 05/14/23 05/23/23 History amLODIPine BESYLATE 10 mg PO QAM 05/14/23 05/23/23 History metFORMIN HCL [Glucophage] 850 mg PO BID-W/MEALS 05/14/23 05/23/23 History Enoxaparin Sodium 100 mg SQ BID 05/23/23 05/23/23 History Metoprolol Succinate (ER) [Toprol 25 mg PO DIRECTED 05/28/23 05/28/23 History XL] Allergies Allergy/AdvReac Type Severity Reaction Status Date / Time rosuvastatin Allergy Confusion Verified 05/23/23 09:13 Physical Exam Osteopathic Statement: *. No significant issues noted on an osteopathic structural exam other than those noted in the History and Physical/Consult. Vitals: Vital Signs Temp Pulse Pulse Resp BP BP Pulse Ox 05/29/23 13:30 96.4 F L 69 23 100 05/29/23 13:15 71 24 97 05/29/23 13:00 70 23 95 05/29/23 12:45 69 20 98 05/29/23 12:38 05/29/23 12:36 67 20 05/29/23 12:30 69 32 H 99 05/29/23 12:28 68 20 05/29/23 12:15 95.4 F L 66 18 100 05/29/23 12:10 05/29/23 12:09 05/29/23 12:00 05/29/23 06:01 97.9 F 70 16 163/78 158/75 97 FiO2 05/29/23 13:30 05/29/23 13:15 05/29/23 13:00 05/29/23 12:45 70 05/29/23 12:38 70 05/29/23 12:36 05/29/23 12:30 05/29/23 12:28 05/29/23 12:15 100 05/29/23 12:10 100 05/29/23 12:09 100 05/29/23 12:00 100 05/29/23 06:01 Intake and Output 05/28/23 05/29/23 05/29/23 22:59 06:59 14:59 Intake Total 100 53 Output Total 700 Balance 100 -647 Intake: IV 100 53 Output: Urine 300 Estimated Blood Loss 400 Other: Weight 97 kg ABP, PAP, CO, CI - Last 8 Hours Arterial Blood Pressure 109/50 Arterial Blood Pressure 111/54 Arterial Blood Pressure 113/52 Arterial Blood Pressure 115/53 Arterial Blood Pressure 120/47 Arterial Blood Pressure 107/52 Pulmonary Artery Pressure 33/20 Pulmonary Artery Pressure 33/21 Pulmonary Artery Pressure 31/22 Pulmonary Artery Pressure 33/23 Pulmonary Artery Pressure 30/17 Pulmonary Artery Pressure 29/21 Cardiac Output 5.5 Cardiac Index 2.6 No acute distress, sedated, with an orally placed endotracheal tube. HEENT examination is grossly unremarkable. Neck supple. Full range of motion. No adenopathy thyromegaly or neck vein distention. Cardiovascular examination reveals regular rhythm rate. S1-S2 normal. No S3 or S4. No discernible murmur noted. Heart rate 69 bpm. Lungs reveal clear breath sounds. Breath sounds are equal bilaterally. No adventitious lung sounds including wheezes rhonchi or crackles. Saturations are 100%. Abdomen soft without bowel sounds. No masses. Extremities are intact. No cyanosis clubbing or edema. Skin is without rash or lesion. Neurologic examination cannot be adequately assessed at this time. Results - Laboratory Findings CBC and BMP: 05/29/23 12:14 05/29/23 12:14 ABG ABG pH 7.33 (7.35-7.45) L 05/29/23 12:33 ABG pCO2 39 mmHg (35-45) 05/29/23 12:33 ABG pO2 147 mmHg (83-108) H 05/29/23 12:33 ABG O2 Saturation 98.2 % (94-97) H 05/29/23 12:33 PT/INR, D-dimer PT 12.4 sec (10.0-12.5) 05/29/23 12:14 INR 1.2 (<1.2) H 05/29/23 12:14 Abnormal lab findings: Abnormal Labs 05/23/23 05/29/23 05/29/23 08:56 06:18 12:06 WBC RBC Hgb Hct Neutrophils # INR ABG pH ABG pO2 ABG HCO3 ABG O2 Saturation Chloride Carbon Dioxide BUN Glucose POC Glucose (mg/dL) 149 H 136 H Magnesium AST ALT Total Protein Crossmatch See Detail 05/29/23 05/29/23 05/29/23 12:14 12:14 12:14 WBC 11.2 H RBC 3.61 L Hgb 11.2 L Hct 33.8 L Neutrophils # 9.1 H INR 1.2 H ABG pH ABG pO2 ABG HCO3 ABG O2 Saturation Chloride 112 H Carbon Dioxide 16 L BUN 21 H Glucose 132 H POC Glucose (mg/dL) Magnesium 1.4 L AST 169 H ALT 146 H Total Protein 5.7 L Crossmatch 05/29/23 05/29/23 12:33 13:02 WBC RBC Hgb Hct Neutrophils # INR ABG pH 7.33 L ABG pO2 147 H ABG HCO3 20 L ABG O2 Saturation 98.2 H Chloride Carbon Dioxide BUN Glucose POC Glucose (mg/dL) 136 H Magnesium AST ALT Total Protein Crossmatch - Diagnostic Findings Chest x-ray: image reviewed Assessment and Plan Assessment: Postop day #0, status post off-pump three-vessel bypass surgery. Routine postoperative ventilator management. History of hypertension. History of hyperlipidemia. History of type 2 diabetes mellitus. History of TIA x 4, with residual left-sided weakness. History of BPH. History of peripheral neuropathy. History of colon cancer, status post colon resection. Plan: Plan dated May 29, 2023. The patient is seen today in room 260. Labs, x-rays, and medications are reviewed. The patient's cardiac output is 5.5. The cardiac index is 2.6. Blood gases show pO2 of 147, pCO2 of 39, pH is 7.33, on 100% oxygen. The patient's FiO2 is turned down to 70%. The patient continues on insulin at 1 unit an hour, nitroglycerin at 5 mcg/min, lactated Ringer's at 50 cc an hour, propofol at 25 mcg/kg/min, and amiodarone at 1 mg/min. We will continue to follow, and make recommendations along the way. I suspect the patient will be relatively quick extubation. We will continue to follow. Time with Patient: Greater than 30
[2023-05-29] MEDS: SODIUM BICARB 8.4% 50 ML SYR (1 MEQ/ML) IV STA (14:01)
[2023-05-29] MEDS: MAGNESIUM SULFATE-D5W PMX 1 GM in DEXTROSE/WATER 1 100ML.BAG IVPB SCH (14:01)
[2023-05-29] MEDS: CLEVIDIPINE BUTYRATE 25 MG in EMPTY BAG 1 BAG IV SCH (14:12)
[2023-05-29 14:13] LABS: Glucose,Whole Blood 158 mg/dL (70-110)
[2023-05-29] MEDS: DEXMEDETOMIDINE/0.9% NACL(PMX) 400 MCG in EMPTY BAG 1 BAG IV SCH (14:39)
[2023-05-29 15:09] LABS: Glucose,Whole Blood 186 mg/dL (70-110)
[2023-05-29 15:30] LABS: Basophils # (A) 0.1 k/uL (0-0.2); Basophils % (A) 1 %; Eosinophils % (A) 0 %; HGB 11.6 gm/dL (13.0-17.5); Lymphocytes # (A) 0.7 k/uL (1.0-4.8); Lymphocytes % (A) 8 %; MCHC 33.1 g/dL (31.0-37.0); MCV 93.7 fL (80.0-100.0); Monocytes # (A) 0.4 k/uL (0-1.0); Monocytes % (A) 5 %; Neutrophils # (A) 8.5 k/uL (1.3-7.7); Neutrophils % (A) 86 %; Platelet Count 183 k/uL (150-450); RBC 3.73 m/uL (4.30-5.90); RDW 12.6 % (11.5-15.5); WBC 9.8 k/uL (3.8-10.6)
[2023-05-29] MEDS: HEPARIN SODIUM,PORCINE 5,000 UNIT/ML 1 ML VIAL SQ SCH (16:14)
[2023-05-29 16:51] LABS: ABG Base Excess -6.3 mmol/L; ABG HCO3 20 mmol/L (21-25); ABG PCO2 39 mmHg (35-45); ABG PH 7.32 (7.35-7.45); ABG PO2 77 mmHg (83-108); ABG TCO2 21 mmol/L (19-24); Allen Test Performed? Yes
[2023-05-29 16:53] LABS: ABG Oxygen Saturation 95.4 % (94-97)
[2023-05-29 17:08] LABS: Glucose,Whole Blood 190 mg/dL (70-110)
[2023-05-29 18:11] LABS: Glucose,Whole Blood 179 mg/dL (70-110)
[2023-05-29] MEDS: AMIODARONE 450 MG in DEXTROSE 5% IN WATER 250 ML IV SCH (18:20)
[2023-05-29 18:21] LABS: Basophils % (A) 0 %; Eosinophils % (A) 0 %; HCT 34.9 % (39.0-53.0); HGB 11.6 gm/dL (13.0-17.5); Lymphocytes # (A) 0.4 k/uL (1.0-4.8); Lymphocytes % (A) 3 %; MCH 30.9 pg (25.0-35.0); MCHC 33.2 g/dL (31.0-37.0); MCV 93.3 fL (80.0-100.0); Monocytes # (A) 0.4 k/uL (0-1.0); Monocytes % (A) 4 %; Neutrophils # (A) 9.6 k/uL (1.3-7.7); Neutrophils % (A) 92 %; Platelet Count 190 k/uL (150-450); RBC 3.74 m/uL (4.30-5.90); RDW 12.7 % (11.5-15.5); WBC 10.4 k/uL (3.8-10.6)
--- NOTE | 2023-05-29 18:55 | P.CONS ---
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 Patient tolerated the procedure well without any immediate postoperative complications. Patient was admitted to the ICU vented, on insulin drip, nitroglycerin drip, propofol, amiodarone (per protocol), and lactated Ringer's. Patient seen and examined at bedside. He is currently on Precedex drip due to agitation. He does wake up and tells me he is not short of breath but he is having some back pain but no overt chest pain. He then falls back asleep Due to sedation most of the information is obtained through thorough record r eview, discussion with the nurse, and review of prior records and outpatient evaluations. Vital signs reviewed General: ill appaering, mild distress, appears at stated age Derm: warm, dry Eyes: EOMI, no lid lag, anicteric sclera, pupils equal round reactive to light ENT: Nose and ears atraumatic Cardiovascular: S1S2 reg, no murmur, no edema Lungs: Decreased bs bilateral, no rhonchi, no rales, no wheeze, no accessory muscle use Abdominal: soft, nontender to palpation, no guarding Ext: no gross muscle atrophy, no contractures Neuro: CN II-XII grossly intact, No focal neuro deficits Psych: lethargic, appropriate affect Assessment/Plan: 73-year-old male status post 4 vessel coronary artery bypass grafting Transaminitis Coronary artery disease Hypertension Dyslipidemia -Currently on amiodarone drip and nitroglycerin drip -Aspirin 325 mg daily, Lipitor 40 mg daily, Plavix 75 mg daily, Lopressor 12.5 mg twice daily -Pulmonary consultation reviewed -Await further CT surgery recommendations -Repeat CMP in a.m. Acute blood loss anemia, anticipated outcome of surgery -No indication for transfusion at this time -Repeat CBC in a.m. Diabetes mellitus type 2 with neuropathy -Hemoglobin A1c 7.5 -Hold metformin, patient is not chronically on insulin -Continue with insulin drip fpr 48 hours after surgery - follow BS Chronic: History of CVA x 4 History of seizure disorder History of colon cancer in the past Imaging: Chest x-ray is reviewed by myself demonstrates postsurgical changes with ET tube in place Data Review: Labs reviewed include CBC with hemoglobin 11.6, CMP with carbon dioxide 16, blood sugar 136, magnesium 1.4, AST 169, ALT 146 Thank you for allowing us to participate in the care of this pleasant patient. Do not hesitate to contact us with questions. Someone can be reached from the [facility] hospitalist group all hours of the day at [phone] or via [employer]. This dictation was prepared using [employer] voice recognition software. Though every attempt is made to correct errors during dictation some may still exist. Past Medical History Past Medical History: Coronary Artery Disease (CAD), Cancer, CVA/TIA, Diabetes Mellitus, Hearing Disorder / Deafness, Hyperlipidemia, Hypertension, Prostate Disorder, Renal Disease, Seizure Disorder Additional Past Medical History / Comment(s): Small vessel disease/CVA x 4 then seizures/last seizure years ago and has weakness L side-ambulates independently, NIDDM type II, Neuropathy bilateral legs/feet, BPH, colon cancer/surgery-approx 2018 no radiation or chemo, kidney cysts, peridontal disease-no active infections History of Any Multi-Drug Resistant Organisms: None Reported Past Surgical History: Bowel Resection, Cholecystectomy, Heart Catheterization, Tonsillectomy Additional Past Surgical History / Comment(s): Kidney cysts removed, colonoscopies. Past Anesthesia/Blood Transfusion Reactions: No Reported Reaction Additional Past Anesthesia/Blood Transfusion Reaction / Comm: Per pt's spouse, he has peridontal disease and teeth could come out easily. Never received blood Smoking Status: Former smoker - Past Family History Father Family Medical History: CVA/TIA, Myocardial Infarction (AK) Additional Family Medical History / Comment(s): of CVA at 74. father of AK in his 50s. Mother Family Medical History: Deep Vein Thrombosis (DVT) Additional Family Medical History / Comment(s): varicose veins. Medications and Allergies Home Medications Medication Instructions Recorded Confirmed Type Cholecalciferol [Vitamin D3 (25 25 mcg PO QAM 05/14/23 05/23/23 History Mcg = 1000 Iu)] Clopidogrel Bisulfate [Clopidogrel] 75 mg PO QAM 05/14/23 05/23/23 History Gabapentin 300 mg PO BID 05/14/23 05/23/23 History Losartan Potassium 100 mg PO QAM 05/14/23 05/23/23 History Super B Complex 1 tab PO QAM 05/14/23 05/23/23 History Tamsulosin [Flomax] 0.4 mg PO HS 05/14/23 05/23/23 History amLODIPine BESYLATE 10 mg PO QAM 05/14/23 05/23/23 History metFORMIN HCL [Glucophage] 850 mg PO BID-W/MEALS 05/14/23 05/23/23 History Enoxaparin Sodium 100 mg SQ BID 05/23/23 05/23/23 History Metoprolol Succinate (ER) [Toprol 25 mg PO DIRECTED 05/28/23 05/28/23 History XL] Allergies Allergy/AdvReac Type Severity Reaction Status Date / Time rosuvastatin Allergy Confusion Verified 05/23/23 09:13 Physical Exam Osteopathic Statement: *. No significant issues noted on an osteopathic structural exam other than those noted in the History and Physical/Consult. Vitals: Vital Signs Temp Pulse Pulse Resp BP BP Pulse Ox 05/29/23 17:30 92 L 05/29/23 17:15 85 12 93 L 05/29/23 17:00 85 14 92 L 05/29/23 16:45 86 12 94 L 05/29/23 16:30 81 27 H 93 L 05/29/23 16:15 83 23 94 L 05/29/23 16:01 05/29/23 16:00 98.8 F 81 29 H 94 L 05/29/23 15:45 79 21 93 L 05/29/23 15:40 05/29/23 15:30 76 26 H 95 05/29/23 15:20 05/29/23 15:15 77 29 H 95 05/29/23 15:11 05/29/23 15:10 79 26 H 05/29/23 15:00 77 18 97 05/29/23 14:45 75 18 100 05/29/23 14:30 73 19 99 05/29/23 14:15 97.2 F L 73 21 100 05/29/23 14:00 72 18 98 05/29/23 13:45 71 22 100 05/29/23 13:30 96.4 F L 69 23 100 05/29/23 13:15 71 24 97 05/29/23 13:00 70 23 95 05/29/23 12:45 69 20 98 05/29/23 12:38 05/29/23 12:36 67 20 05/29/23 12:30 69 32 H 99 05/29/23 12:28 68 20 05/29/23 12:15 95.4 F L 66 18 100 05/29/23 12:10 05/29/23 12:09 05/29/23 12:00 05/29/23 06:01 97.9 F 70 16 163/78 158/75 97 FiO2 05/29/23 17:30 05/29/23 17:15 05/29/23 17:00 05/29/23 16:45 05/29/23 16:30 05/29/23 16:15 05/29/23 16:01 50 05/29/23 16:00 50 05/29/23 15:45 05/29/23 15:40 50 05/29/23 15:30 05/29/23 15:20 60 05/29/23 15:15 05/29/23 15:11 50 05/29/23 15:10 05/29/23 15:00 60 05/29/23 14:45 05/29/23 14:30 05/29/23 14:15 05/29/23 14:00 05/29/23 13:45 05/29/23 13:30 05/29/23 13:15 05/29/23 13:00 05/29/23 12:45 70 05/29/23 12:38 70 05/29/23 12:36 05/29/23 12:30 05/29/23 12:28 05/29/23 12:15 100 05/29/23 12:10 100 05/29/23 12:09 100 05/29/23 12:00 100 05/29/23 06:01 Intake and Output 05/29/23 05/29/23 05/29/23 06:59 14:59 22:59 Intake Total 100 554.693 423.953 Output Total 985 335 Balance 100 -430.307 88.953 Intake: IV 100 524.5 401.5 ACETAMINOPHEN IV (For NPO 100 ) 1,000 mg In Empty Bag 1 bag @ 400 mls/hr IVPB Q6H [facility] Rx#:[id number] CO/CI 90 70 Lactated Ringers 1,000 ml 150 150 @ 50 mls/hr IV .Q20H [facility] Rx#:[id number] Magnesium Sulfate-D5w Pmx 100 100 1 gm In Dextrose/Water 1 100ml.bag @ 100 mls/hr IVPB Q1H [facility] Rx#: [id number] Nitroglycerin-D5w Pmx 50 4.5 4.5 mg In Dextrose/Water 1 250ml.bag @ 5 MCG/MIN 1.5 mls/hr IV .Q24H [facility] Rx#: [id number] ceFAZolin 2 gm In Sodium 50 Chloride 0.9% 50 ml @ 100 mls/hr IVPB Q8HR [facility] Rx# :[id number] pressure bag 27 27 Intake, IV Titration 30.193 22.453 Amount Dexmedetomidine/0.9% NaCl 6.467 (Pmx) 400 mcg In Empty Bag 1 bag @ Titrate IV . Q0M [facility] Rx#:[id number] Insulin Regular 100 unit 1.869 8.711 In Sodium Chloride 0.9% 100 ml @ Per Protocol IV .Q0M [facility] Rx#:[id number] propofoL 1,000 mg In 28.324 7.275 Empty Bag 1 bag @ Titrate IV .Q0M [facility] Rx#: [id number] Output: Chest Tube Drainage 185 200 Mediastinal 120 70 left and right 65 130 Urine 400 135 Estimated Blood Loss 400 Other: Weight 97 kg ABP, PAP, CO, CI - Last 8 Hours Arterial Blood Pressure 117/57 Arterial Blood Pressure 114/65 Arterial Blood Pressure 175/84 Arterial Blood Pressure 127/64 Arterial Blood Pressure 124/59 Arterial Blood Pressure 117/57 Arterial Blood Pressure 113/56 Arterial Blood Pressure 107/52 Arterial Blood Pressure 110/56 Arterial Blood Pressure 118/59 Arterial Blood Pressure 117/55 Arterial Blood Pressure 115/53 Arterial Blood Pressure 109/52 Arterial Blood Pressure 108/52 Arterial Blood Pressure 105/50 Arterial Blood Pressure 109/50 Arterial Blood Pressure 111/54 Arterial Blood Pressure 113/52 Arterial Blood Pressure 115/53 Arterial Blood Pressure 120/47 Arterial Blood Pressure 107/52 Pulmonary Artery Pressure 35/26 Pulmonary Artery Pressure 39/32 Pulmonary Artery Pressure 48/34 Pulmonary Artery Pressure 41/28 Pulmonary Artery Pressure 32/24 Pulmonary Artery Pressure 32/23 Pulmonary Artery Pressure 33/26 Pulmonary Artery Pressure 33/23 Pulmonary Artery Pressure 34/24 Pulmonary Artery Pressure 37/26 Pulmonary Artery Pressure 34/22 Pulmonary Artery Pressure 33/23 Pulmonary Artery Pressure 33/21 Pulmonary Artery Pressure 33/21 Pulmonary Artery Pressure 34/20 Pulmonary Artery Pressure 33/20 Pulmonary Artery Pressure 33/21 Pulmonary Artery Pressure 31/22 Pulmonary Artery Pressure 33/23 Pulmonary Artery Pressure 30/17 Pulmonary Artery Pressure 29/21 Cardiac Output 6.1 Cardiac Output 5.9 Cardiac Output 6.4 Cardiac Output 5.5 Cardiac Index 2.9 Cardiac Index 2.8 Cardiac Index 3.1 Cardiac Index 2.6 Results CBC & Chem 7: 05/29/23 18:10 05/29/23 18:10 Labs: Abnormal Lab Results - Last 24 Hours (Table) 05/23/23 05/29/23 05/29/23 Range/Units 08:56 06:18 12:06 WBC (3.8-10.6) k/uL RBC (4.30-5.90) m/uL Hgb (13.0-17.5) gm/dL Hct (39.0-53.0) % Neutrophils # (1.3-7.7) k/uL Lymphocytes # (1.0-4.8) k/uL INR (<1.2) ABG pH (7.35-7.45) ABG pO2 (83-108) mmHg ABG HCO3 (21-25) mmol/L ABG O2 Saturation (94-97) % Chloride (98-107) mmol/L Carbon Dioxide (22-30) mmol/L BUN (9-20) mg/dL Glucose (74-99) mg/dL POC Glucose (mg/dL) 149 H 136 H (70-110) mg/dL Magnesium (1.6-2.3) mg/dL AST (17-59) U/L ALT (4-49) U/L Total Protein (6.3-8.2) g/dL Crossmatch See Detail 05/29/23 05/29/23 05/29/23 Range/Units 12:14 12:14 12:14 WBC 11.2 H (3.8-10.6) k/uL RBC 3.61 L (4.30-5.90) m/uL Hgb 11.2 L (13.0-17.5) gm/dL Hct 33.8 L (39.0-53.0) % Neutrophils # 9.1 H (1.3-7.7) k/uL Lymphocytes # (1.0-4.8) k/uL INR 1.2 H (<1.2) ABG pH (7.35-7.45) ABG pO2 (83-108) mmHg ABG HCO3 (21-25) mmol/L ABG O2 Saturation (94-97) % Chloride 112 H (98-107) mmol/L Carbon Dioxide 16 L (22-30) mmol/L BUN 21 H (9-20) mg/dL Glucose 132 H (74-99) mg/dL POC Glucose (mg/dL) (70-110) mg/dL Magnesium 1.4 L (1.6-2.3) mg/dL AST 169 H (17-59) U/L ALT 146 H (4-49) U/L Total Protein 5.7 L (6.3-8.2) g/dL Crossmatch 05/29/23 05/29/23 05/29/23 Range/Units 12:33 13:02 14:11 WBC (3.8-10.6) k/uL RBC (4.30-5.90) m/uL Hgb (13.0-17.5) gm/dL Hct (39.0-53.0) % Neutrophils # (1.3-7.7) k/uL Lymphocytes # (1.0-4.8) k/uL INR (<1.2) ABG pH 7.33 L (7.35-7.45) ABG pO2 147 H (83-108) mmHg ABG HCO3 20 L (21-25) mmol/L ABG O2 Saturation 98.2 H (94-97) % Chloride (98-107) mmol/L Carbon Dioxide (22-30) mmol/L BUN (9-20) mg/dL Glucose (74-99) mg/dL POC Glucose (mg/dL) 136 H 158 H (70-110) mg/dL Magnesium (1.6-2.3) mg/dL AST (17-59) U/L ALT (4-49) U/L Total Protein (6.3-8.2) g/dL Crossmatch 05/29/23 05/29/23 05/29/23 Range/Units 15:05 15:08 16:49 WBC (3.8-10.6) k/uL RBC 3.73 L (4.30-5.90) m/uL Hgb 11.6 L (13.0-17.5) gm/dL Hct 35.0 L (39.0-53.0) % Neutrophils # 8.5 H (1.3-7.7) k/uL Lymphocytes # 0.7 L (1.0-4.8) k/uL INR (<1.2) ABG pH 7.32 L (7.35-7.45) ABG pO2 77 L (83-108) mmHg ABG HCO3 20 L (21-25) mmol/L ABG O2 Saturation (94-97) % Chloride (98-107) mmol/L Carbon Dioxide (22-30) mmol/L BUN (9-20) mg/dL Glucose (74-99) mg/dL POC Glucose (mg/dL) 186 H (70-110) mg/dL Magnesium (1.6-2.3) mg/dL AST (17-59) U/L ALT (4-49) U/L Total Protein (6.3-8.2) g/dL Crossmatch 05/29/23 05/29/23 Range/Units 17:07 18:10 WBC (3.8-10.6) k/uL RBC (4.30-5.90) m/uL Hgb (13.0-17.5) gm/dL Hct (39.0-53.0) % Neutrophils # (1.3-7.7) k/uL Lymphocytes # (1.0-4.8) k/uL INR (<1.2) ABG pH (7.35-7.45) ABG pO2 (83-108) mmHg ABG HCO3 (21-25) mmol/L ABG O2 Saturation (94-97) % Chloride (98-107) mmol/L Carbon Dioxide (22-30) mmol/L BUN (9-20) mg/dL Glucose (74-99) mg/dL POC Glucose (mg/dL) 190 H 179 H (70-110) mg/dL Magnesium (1.6-2.3) mg/dL AST (17-59) U/L ALT (4-49) U/L Total Protein (6.3-8.2) g/dL Crossmatch
[2023-05-29 19:04] LABS: Glucose,Whole Blood 166 mg/dL (70-110)
[2023-05-29 20:13] LABS: Glucose,Whole Blood 141 mg/dL (70-110)
[2023-05-29] MEDS: GABAPENTIN 300 MG CAP PO SCH (20:32)
[2023-05-29] MEDS: SENNOSIDES-DOCUSATE SODIUM 1 EACH TAB PO SCH (20:33)
[2023-05-29 21:15] LABS: Glucose,Whole Blood 137 mg/dL (70-110)
[2023-05-29 22:07] LABS: Glucose,Whole Blood 135 mg/dL (70-110)
[2023-05-29 23:05] LABS: Glucose,Whole Blood 138 mg/dL (70-110)
[2023-05-30 00:10] LABS: Glucose,Whole Blood 133 mg/dL (70-110)
[2023-05-30 01:13] LABS: Glucose,Whole Blood 141 mg/dL (70-110)
[2023-05-30 02:13] LABS: Glucose,Whole Blood 141 mg/dL (70-110)
[2023-05-30 03:10] LABS: Glucose,Whole Blood 134 mg/dL (70-110)
[2023-05-30 04:10] LABS: Glucose,Whole Blood 123 mg/dL (70-110)
[2023-05-30 05:18] LABS: Glucose,Whole Blood 126 mg/dL (70-110)
[2023-05-30 05:30] LABS: Basophils % (A) 0 %; Eosinophils % (A) 0 %; HCT 36.2 % (39.0-53.0); HGB 11.9 gm/dL (13.0-17.5); Lymphocytes # (A) 0.9 k/uL (1.0-4.8); Lymphocytes % (A) 8 %; MCH 30.6 pg (25.0-35.0); MCHC 32.8 g/dL (31.0-37.0); MCV 93.2 fL (80.0-100.0); Mean Platelet Volume 8.4; Monocytes # (A) 0.6 k/uL (0-1.0); Monocytes % (A) 5 %; Neutrophils # (A) 9.9 k/uL (1.3-7.7); Neutrophils % (A) 86 %; Platelet Count 202 k/uL (150-450); RBC 3.89 m/uL (4.30-5.90); RDW 12.7 % (11.5-15.5); WBC 11.6 k/uL (3.8-10.6)
[2023-05-30 05:42] LABS: ALT 123 U/L (4-49); AST 88 U/L (17-59); African American GFR (CKD) 71 (>60 ml/min/1.73 sqM); Albumin 3.2 g/dL (3.5-5.0); Alkaline Phosphatase 50 U/L (38-126); Anion Gap 9 mmol/L; Blood Urea Nitrogen 18 mg/dL (9-20); Calcium 8.6 mg/dL (8.4-10.2); Carbon Dioxide 18 mmol/L (22-30); Chloride 110 mmol/L (98-107); Glucose 125 mg/dL (74-99); Magnesium 1.9 mg/dL (1.6-2.3); Non-African American GFR(CKD) 62 (>60 ml/min/1.73 sqM); Potassium 4.1 mmol/L (3.5-5.1); Sodium 137 mmol/L (137-145); Total Bilirubin 0.4 mg/dL (0.2-1.3); Total Protein 5.5 g/dL (6.3-8.2)
[2023-05-30 06:15] LABS: Glucose,Whole Blood 146 mg/dL (70-110)
[2023-05-30] MEDS: ALBUMIN HUMAN 5% 250 ML in EMPTY BAG 1 BAG IVPB PRN (06:17)
[2023-05-30] MEDS: MAGNESIUM SULFATE-D5W PMX 1 GM in DEXTROSE/WATER 1 100ML.BAG IVPB ONE (06:25)
[2023-05-30 06:59] LABS: Glucose,Whole Blood 167 mg/dL (70-110)
[2023-05-30] MEDS: IPRATROPIUM-ALBUTEROL 3 ML NEB INHALATION SCH (07:57)
[2023-05-30 08:16] LABS: Glucose,Whole Blood 163 mg/dL (70-110)
[2023-05-30] MEDS: AMIODARONE 200 MG TAB PO SCH (08:18)
[2023-05-30] MEDS: ASPIRIN 325 MG TAB PO SCH (08:18)
[2023-05-30] MEDS: CHOLECALCIFEROL 25 MCG (1000 IU) TABLET PO SCH (08:18)
[2023-05-30] MEDS: CLOPIDOGREL 75 MG TAB PO SCH (08:18)
[2023-05-30] MEDS: ATORVASTATIN 40 MG TAB PO SCH (08:18)
[2023-05-30] MEDS: ACETAMINOPHEN TAB 325 MG TAB PO PRN (08:19)
[2023-05-30] MEDS: METOPROLOL TARTRATE 25 MG TAB PO SCH (08:19)
[2023-05-30] MEDS: PANTOPRAZOLE 40 MG/10 ML VIAL IVP SCH (08:20)
[2023-05-30] MEDS ORDERED: MAGNESIUM HYDROXIDE 2,400 MG/30 ML CUP PO PRN (09:00)
[2023-05-30] MEDS ORDERED: METOPROLOL TARTRATE 12.5 MG TAB PO SCH (09:00)
[2023-05-30] MEDS ORDERED: bisacodyL 10 MG SUPP RECTAL PRN (09:00)
[2023-05-30 09:08] LABS: Glucose,Whole Blood 152 mg/dL (70-110)
--- NOTE | 2023-05-30 09:37 | XR ---
EXAMINATION TYPE: XR chest 1V portable DATE OF EXAM: 05/30/2023 5:10 AM CLINICAL INDICATION:Male, 73 years old with history of Post Operative Cardiac Surgery; LOCATED WITHIN [facility] COMPARISON: Chest radiograph from one day prior. TECHNIQUE: XR chest 1V portable Frontal view of the chest. FINDINGS: Lungs/Pleura: There is no evidence of pleural effusion, focal consolidation, or pneumothorax. Pulmonary vascularity: Unremarkable. Heart/mediastinum: Cardiomediastinal silhouette is enlarged and stable. Left atrial appendage occlusi on device is present. Musculoskeletal: Multiple level degenerative disc disease changes seen throughout the spine. Midline sternotomy wires are noted. Other findings: None Lines/Tubes: Interval removal of the endotracheal tube. Interval removal of the enteric tube, Drainage tubes with tips projecting over the mediastinum. Bilateral thoracotomy tubes are present without evidence of pneumothorax. There is a [place]-Swetha catheter with tip projecting over the spine. IMPRESSION: Stable exam, Postsurgical changes lines and tubes as above. No evidence for acute process.
--- NOTE | 2023-05-30 09:58 | P.PN ---
Subjective Progress Note Date: 05/30/23 Principal diagnosis: Triple vessel coronary artery disease. Previous history of pretension, hyperlipidemia, diabetes, TIA, BPH, previous tobacco dependence, peripheral neuropathy, colon cancer status post colon resection. Family history of premature coronary artery disease POD #1 off pump coronary artery bypass grafting x 3, left internal thoracic artery (in-situ) to left anterior descending coronary artery, radial artery from aorta to obtuse marginal artery, saphenous vein from aorta to posterior descending coronary artery, left atrial appendage ligation using #35mm AtriClip, endoscopic left radial and right greater saphenous vein harvest, graft flow measurements using the medi-stim flow meter system, trans-esophageal echo Postoperative acute blood loss anemia, expected given hemodilution The patient was seen and examined with Dr. Jaquez sitting up in recliner in the intensive care unit in no acute distress. He was successfully extubated yesterday at 1700. Currently in sinus rhythm and hemodynamically stable on no inotropes or pressors. Remains on IV amiodarone for A-fib prophylaxis, IV nitro for vessel spasm prophylaxis. Does complain of postsurgical pain with deep inspiration and coughing, denies shortness of breath. Remains on 4 L nasal cannula with oxygen saturation in the mid 90s. Chest x-ray, labs reviewed. Right internal jugular [place]/Cordis, right brachial arterial line, mediastinal/right/left pleural chest tubes all remain. No other new concerns. Objective - Vital Signs Vital signs: Vital Signs Temp 100.2 F H 05/30/23 08:00 Pulse 80 05/30/23 09:00 Resp 17 05/30/23 09:00 BP 163/78 05/29/23 06:01 Pulse Ox 93 L 05/30/23 09:00 FiO2 50 05/29/23 16:01 Intake & Output 05/29/23 05/30/23 05/30/23 18:59 06:59 18:59 Intake Total 2132.120 3517.590 670.942 Output Total 1420 910 255 Balance -344.962 180.590 415.942 Weight 97.1 kg Intake: IV 1016.5 786.0 300.0 ACETAMINOPHEN IV (For NPO 100 ) 1,000 mg In Empty Bag 1 bag @ 400 mls/hr IVPB Q6H [facility] Rx#:[id number] CO/CI 190 60 20 Lactated Ringers 1,000 ml 350 600 100 @ 20 mls/hr IV .Q24H [facility] Rx#:[id number] Magnesium Sulfate-D5w Pmx 200 100 1 gm In Dextrose/Water 1 100ml.bag @ 100 mls/hr IVPB Q1H [facility] Rx#: [id number] Nitroglycerin-D5w Pmx 50 10.5 18.0 3.0 mg In Dextrose/Water 1 250ml.bag @ 5 MCG/MIN 1.5 mls/hr IV .Q24H [facility] Rx#: [id number] ceFAZolin 2 gm In Sodium 50 50 Chloride 0.9% 50 ml @ 100 mls/hr IVPB Q8HR [facility] Rx# :[id number] pressure bag 63 108 27 Intake, IV Titration 58.538 304.590 10.942 Amount Albumin Human 5% 250 ml 250 In Empty Bag 1 bag @ 250 mls/hr IVPB Q1HR [facility] Rx#: [id number] Dexmedetomidine/0.9% NaCl 6.467 12.893 (Pmx) 400 mcg In Empty Bag 1 bag @ Titrate IV . Q0M [facility] Rx#:[id number] Insulin Regular 100 unit 16.472 41.697 10.942 In Sodium Chloride 0.9% 100 ml @ Per Protocol IV .Q0M [facility] Rx#:[id number] propofoL 1,000 mg In 35.599 Empty Bag 1 bag @ Titrate IV .Q0M [facility] Rx#: [id number] Oral 360 Output: Chest Tube Drainage 450 420 110 Mediastinal 220 200 10 left and right 230 220 100 Urine 570 490 145 Estimated Blood Loss 400 Other: Voiding Method Indwelling Catheter Indwelling Catheter ABP, PAP, CO, CI - Last Documented Arterial Blood Pressure 129/45 Pulmonary Artery Pressure 20/14 Cardiac Output 5.8 Cardiac Index 2.8 - Exam CONSTITUTIONAL: Appears mostly comfortable, cooperative, no acute distress RESPIRATORY: Lungs sounds diminished bilaterally. Respirations even, nonlabored. Currently on liters nasal cannula with oxygen saturation 94%. Able to achieve 500 mL on incentive spirometry. Weak cough. CARDIOVASCULAR: S1, S2 present. Regular rate and rhythm, sinus rhythm on telemetry. Sternum stable. Palpable peripheral pulses bilaterally. No edema present. No calf pain or tenderness noted. Heart hugger in place with patient demonstrating appropriate use. Antiembolism stockings, SCDs present. GASTROINTESTINAL: Abdomen soft, nontender, nondistended. Hypoactive bowel sounds present 4 quadrants. Tolerating clear liquids. Denies flatus GENITOURINARY: Ceballos present draining clear, yellow urine. Output overnight 35-60 mL per hour INTEGUMENTARY: Skin is warm and dry with evidence of good perfusion. Anterior chest incision well approximated and covered with dry intact dressing. Left radial artery harvest site as well as right lower extremity EVH site well approximated without redness or drainage. NEUROLOGIC: Cranial nerves II through XII intact MUSKULOSKELETAL: Able to move all extremities, strength equal bilaterally PSYCHIATRIC: Alert and oriented to person place and time, appropriate affect, intact judgment and insight INVASIVE LINES AND TUBES: Mediastinal/left/right pleural chest tubes present and connected to wall suction, no air leaks present. Mediastinal tube with 140 mL serosanguineous drainage overnight, 400 mL since surgery. Left/right pleural chest tubes with 160 mL serosanguineous drainage overnight, 500 mL since surgery. Ventricular epicardial pacemaker wires present, connected to generator, backup rate 50 bpm. Right internal jugular [place]/Cordis, right radial arterial line present. Last CO/CI 5.8/2.8, PA 15/9, CVP 2. - Allied health notes Allied health notes reviewed: nursing - Labs CBC & Chem 7: 05/30/23 05:17 05/30/23 05:17 Labs: Abnormal Lab Results - Last 24 Hours (Table) 05/23/23 05/29/23 05/29/23 Range/Units 08:56 12:06 12:14 WBC 11.2 H (3.8-10.6) k/uL RBC 3.61 L (4.30-5.90) m/uL Hgb 11.2 L (13.0-17.5) gm/dL Hct 33.8 L (39.0-53.0) % Neutrophils # 9.1 H (1.3-7.7) k/uL Lymphocytes # (1.0-4.8) k/uL INR (<1.2) ABG pH (7.35-7.45) ABG pO2 (83-108) mmHg ABG HCO3 (21-25) mmol/L ABG O2 Saturation (94-97) % Chloride (98-107) mmol/L Carbon Dioxide (22-30) mmol/L BUN (9-20) mg/dL Glucose (74-99) mg/dL POC Glucose (mg/dL) 136 H (70-110) mg/dL Magnesium (1.6-2.3) mg/dL AST (17-59) U/L ALT (4-49) U/L Total Protein (6.3-8.2) g/dL Albumin (3.5-5.0) g/dL Crossmatch See Detail 05/29/23 05/29/23 05/29/23 Range/Units 12:14 12:14 12:33 WBC (3.8-10.6) k/uL RBC (4.30-5.90) m/uL Hgb (13.0-17.5) gm/dL Hct (39.0-53.0) % Neutrophils # (1.3-7.7) k/uL Lymphocytes # (1.0-4.8) k/uL INR 1.2 H (<1.2) ABG pH 7.33 L (7.35-7.45) ABG pO2 147 H (83-108) mmHg ABG HCO3 20 L (21-25) mmol/L ABG O2 Saturation 98.2 H (94-97) % Chloride 112 H (98-107) mmol/L Carbon Dioxide 16 L (22-30) mmol/L BUN 21 H (9-20) mg/dL Glucose 132 H (74-99) mg/dL POC Glucose (mg/dL) (70-110) mg/dL Magnesium 1.4 L (1.6-2.3) mg/dL AST 169 H (17-59) U/L ALT 146 H (4-49) U/L Total Protein 5.7 L (6.3-8.2) g/dL Albumin (3.5-5.0) g/dL Crossmatch 05/29/23 05/29/23 05/29/23 Range/Units 13:02 14:11 15:05 WBC (3.8-10.6) k/uL RBC 3.73 L (4.30-5.90) m/uL Hgb 11.6 L (13.0-17.5) gm/dL Hct 35.0 L (39.0-53.0) % Neutrophils # 8.5 H (1.3-7.7) k/uL Lymphocytes # 0.7 L (1.0-4.8) k/uL INR (<1.2) ABG pH (7.35-7.45) ABG pO2 (83-108) mmHg ABG HCO3 (21-25) mmol/L ABG O2 Saturation (94-97) % Chloride (98-107) mmol/L Carbon Dioxide (22-30) mmol/L BUN (9-20) mg/dL Glucose (74-99) mg/dL POC Glucose (mg/dL) 136 H 158 H (70-110) mg/dL Magnesium (1.6-2.3) mg/dL AST (17-59) U/L ALT (4-49) U/L Total Protein (6.3-8.2) g/dL Albumin (3.5-5.0) g/dL Crossmatch 05/29/23 05/29/23 05/29/23 Range/Units 15:08 16:49 17:07 WBC (3.8-10.6) k/uL RBC (4.30-5.90) m/uL Hgb (13.0-17.5) gm/dL Hct (39.0-53.0) % Neutrophils # (1.3-7.7) k/uL Lymphocytes # (1.0-4.8) k/uL INR (<1.2) ABG pH 7.32 L (7.35-7.45) ABG pO2 77 L (83-108) mmHg ABG HCO3 20 L (21-25) mmol/L ABG O2 Saturation (94-97) % Chloride (98-107) mmol/L Carbon Dioxide (22-30) mmol/L BUN (9-20) mg/dL Glucose (74-99) mg/dL POC Glucose (mg/dL) 186 H 190 H (70-110) mg/dL Magnesium (1.6-2.3) mg/dL AST (17-59) U/L ALT (4-49) U/L Total Protein (6.3-8.2) g/dL Albumin (3.5-5.0) g/dL Crossmatch 05/29/23 05/29/23 05/29/23 Range/Units 18:10 18:10 19:03 WBC (3.8-10.6) k/uL RBC 3.74 L (4.30-5.90) m/uL Hgb 11.6 L (13.0-17.5) gm/dL Hct 34.9 L (39.0-53.0) % Neutrophils # 9.6 H (1.3-7.7) k/uL Lymphocytes # 0.4 L (1.0-4.8) k/uL INR (<1.2) ABG pH (7.35-7.45) ABG pO2 (83-108) mmHg ABG HCO3 (21-25) mmol/L ABG O2 Saturation (94-97) % Chloride (98-107) mmol/L Carbon Dioxide (22-30) mmol/L BUN (9-20) mg/dL Glucose (74-99) mg/dL POC Glucose (mg/dL) 179 H 166 H (70-110) mg/dL Magnesium (1.6-2.3) mg/dL AST (17-59) U/L ALT (4-49) U/L Total Protein (6.3-8.2) g/dL Albumin (3.5-5.0) g/dL Crossmatch 05/29/23 05/29/23 05/29/23 Range/Units 20:11 21:14 22:05 WBC (3.8-10.6) k/uL RBC (4.30-5.90) m/uL Hgb (13.0-17.5) gm/dL Hct (39.0-53.0) % Neutrophils # (1.3-7.7) k/uL Lymphocytes # (1.0-4.8) k/uL INR (<1.2) ABG pH (7.35-7.45) ABG pO2 (83-108) mmHg ABG HCO3 (21-25) mmol/L ABG O2 Saturation (94-97) % Chloride (98-107) mmol/L Carbon Dioxide (22-30) mmol/L BUN (9-20) mg/dL Glucose (74-99) mg/dL POC Glucose (mg/dL) 141 H 137 H 135 H (70-110) mg/dL Magnesium (1.6-2.3) mg/dL AST (17-59) U/L ALT (4-49) U/L Total Protein (6.3-8.2) g/dL Albumin (3.5-5.0) g/dL Crossmatch 05/29/23 05/30/23 05/30/23 Range/Units 23:02 00:07 01:11 WBC (3.8-10.6) k/uL RBC (4.30-5.90) m/uL Hgb (13.0-17.5) gm/dL Hct (39.0-53.0) % Neutrophils # (1.3-7.7) k/uL Lymphocytes # (1.0-4.8) k/uL INR (<1.2) ABG pH (7.35-7.45) ABG pO2 (83-108) mmHg ABG HCO3 (21-25) mmol/L ABG O2 Saturation (94-97) % Chloride (98-107) mmol/L Carbon Dioxide (22-30) mmol/L BUN (9-20) mg/dL Glucose (74-99) mg/dL POC Glucose (mg/dL) 138 H 133 H 141 H (70-110) mg/dL Magnesium (1.6-2.3) mg/dL AST (17-59) U/L ALT (4-49) U/L Total Protein (6.3-8.2) g/dL Albumin (3.5-5.0) g/dL Crossmatch 05/30/23 05/30/23 05/30/23 Range/Units 02:12 03:08 04:08 WBC (3.8-10.6) k/uL RBC (4.30-5.90) m/uL Hgb (13.0-17.5) gm/dL Hct (39.0-53.0) % Neutrophils # (1.3-7.7) k/uL Lymphocytes # (1.0-4.8) k/uL INR (<1.2) ABG pH (7.35-7.45) ABG pO2 (83-108) mmHg ABG HCO3 (21-25) mmol/L ABG O2 Saturation (94-97) % Chloride (98-107) mmol/L Carbon Dioxide (22-30) mmol/L BUN (9-20) mg/dL Glucose (74-99) mg/dL POC Glucose (mg/dL) 141 H 134 H 123 H (70-110) mg/dL Magnesium (1.6-2.3) mg/dL AST (17-59) U/L ALT (4-49) U/L Total Protein (6.3-8.2) g/dL Albumin (3.5-5.0) g/dL Crossmatch 05/30/23 05/30/23 05/30/23 Range/Units 05:16 05:17 05:17 WBC 11.6 H (3.8-10.6) k/uL RBC 3.89 L (4.30-5.90) m/uL Hgb 11.9 L (13.0-17.5) gm/dL Hct 36.2 L (39.0-53.0) % Neutrophils # 9.9 H (1.3-7.7) k/uL Lymphocytes # 0.9 L (1.0-4.8) k/uL INR (<1.2) ABG pH (7.35-7.45) ABG pO2 (83-108) mmHg ABG HCO3 (21-25) mmol/L ABG O2 Saturation (94-97) % Chloride 110 H (98-107) mmol/L Carbon Dioxide 18 L (22-30) mmol/L BUN (9-20) mg/dL Glucose 125 H (74-99) mg/dL POC Glucose (mg/dL) 126 H (70-110) mg/dL Magnesium (1.6-2.3) mg/dL AST 88 H (17-59) U/L ALT 123 H (4-49) U/L Total Protein 5.5 L (6.3-8.2) g/dL Albumin 3.2 L (3.5-5.0) g/dL Crossmatch 05/30/23 05/30/23 05/30/23 Range/Units 06:13 06:58 08:14 WBC (3.8-10.6) k/uL RBC (4.30-5.90) m/uL Hgb (13.0-17.5) gm/dL Hct (39.0-53.0) % Neutrophils # (1.3-7.7) k/uL Lymphocytes # (1.0-4.8) k/uL INR (<1.2) ABG pH (7.35-7.45) ABG pO2 (83-108) mmHg ABG HCO3 (21-25) mmol/L ABG O2 Saturation (94-97) % Chloride (98-107) mmol/L Carbon Dioxide (22-30) mmol/L BUN (9-20) mg/dL Glucose (74-99) mg/dL POC Glucose (mg/dL) 146 H 167 H 163 H (70-110) mg/dL Magnesium (1.6-2.3) mg/dL AST (17-59) U/L ALT (4-49) U/L Total Protein (6.3-8.2) g/dL Albumin (3.5-5.0) g/dL Crossmatch 05/30/23 Range/Units 09:06 WBC (3.8-10.6) k/uL RBC (4.30-5.90) m/uL Hgb (13.0-17.5) gm/dL Hct (39.0-53.0) % Neutrophils # (1.3-7.7) k/uL Lymphocytes # (1.0-4.8) k/uL INR (<1.2) ABG pH (7.35-7.45) ABG pO2 (83-108) mmHg ABG HCO3 (21-25) mmol/L ABG O2 Saturation (94-97) % Chloride (98-107) mmol/L Carbon Dioxide (22-30) mmol/L BUN (9-20) mg/dL Glucose (74-99) mg/dL POC Glucose (mg/dL) 152 H (70-110) mg/dL Magnesium (1.6-2.3) mg/dL AST (17-59) U/L ALT (4-49) U/L Total Protein (6.3-8.2) g/dL Albumin (3.5-5.0) g/dL Crossmatch - Imaging and Cardiology Chest x-ray: report reviewed, image reviewed Assessment and Plan Assessment: Triple vessel coronary artery disease, status post three-vessel off-pump CABG Hypertension Hyperlipidemia, treated, cholesterol 142, LDL 58, triglycerides 211 Diabetes, preoperative hemoglobin A1c 7.5% TIA BPH, currently on Flomax Previous tobacco dependence, preoperative FEV1 86% of predicted Peripheral neuropathy Colon cancer status post colon resection Family history of premature coronary artery disease Postoperative acute blood loss anemia, expected Plan: Continue to maximize medical therapy with aspirin, statin, Plavix, beta-jorge. Will increase beta-jorge therapy as tolerated Discontinue IV nitro. Will start low-dose amlodipine for radial artery spasm prophylaxis Continue amiodarone, transition to oral. Patient has not had any A-fib at this point, currently on amiodarone for prophylaxis Wean O2 as tolerated. Encourage incentive spirometry use 10 times every hour while awake. Bronchodilators per pulmonology Increase activity, ambulate as tolerated. PT/OT/cardiac rehab consulted Will monitor daily labs and x-rays. Electrolyte replacement per protocol Insulin management per internal medicine. Please continue IV insulin for 48 hours postsurgery, then may transition to subcutaneous per protocol Pain control with current medication regimen GI/DVT prophylaxis Discontinue [place]. Connect Cordis to continuous CVP monitoring Continue chest tubes for another 24 hours, monitor output Continue Ceballos catheter for another 24 hours for strict accurate intake and output Daily weights Continue home dose of Flomax More recommendations to follow
[2023-05-30 10:31] LABS: Glucose,Whole Blood 129 mg/dL (70-110)
[2023-05-30 10:37] VITALS: BMI 33.5
--- NOTE | 2023-05-30 10:41 | P.PN ---
Subjective Progress Note Date: 05/30/23 Principal diagnosis: Coronary disease. 73-year-old male seen in the intensive care unit, room 260. He just came back from the operating room, having had an off-pump three-vessel bypass surgery, with Dr. Vang. The patient had a BOO to LAD bypass, left radial to obtuse marginal bypass, and SVG to PDA bypass. The patient is on the mechanical ventilator. Ventilator settings include volume assist-control, rate 18, tidal volume 400, FiO2 70%, PEEP of 5. Blood gases show pO2 147, pCO2 of 39, pH is 7.33. The patient's cardiac output is 5.5 with an index of 2.6. The patient is on insulin drip at 1 unit an hour, nitroglycerin at 5 mcg/min, lactated Ringer's at 50 cc an hour, propofol at 25 mcg/kg/min, and amiodarone at 1 mg/min. The patient has a history of hypertension, hyperlipidemia, TIA, with some residual left-sided weakness, diabetes mellitus, BPH, peripheral neuropathy, colon cancer status post colon resection, and a family history of cardiac disease. Current labs include a white count 11.2, hemoglobin 11.2, hematocrit 33.8, and a platelet count is 170,000. Sodium 139, potassium 4, chlorides 112, CO2 16, BUN 21, and creatinine 1.13. Glucose is 136. Albumin is 3.5. His x-ray shows some postsurgical changes, without anything acute. Endotracheal tube is 4 cm above the trav. Progress note dated May 30, 2023. This is a 73-year-old male who is postop day #1, status post off-pump three- vessel bypass surgery. The patient was seen yesterday in the ICU. Currently, he is on 4 L nasal cannula. He is getting lactated Ringer's at 50 cc an hour, a nd amiodarone at 0.5 mg/min. In addition, he is on an insulin drip at 5.5 units an hour. The patient sitting in a chair next to his bed. Laboratory data includes a white count 11.6, hemoglobin 11.9, hematocrit 36.2, and a normal platelet count. Sodium 137, potassium 4.1, chlorides 110, CO2 18, BUN 18, creatinine 1.16. Glucose is 125. AST is 88 and ALT is 123. Albumin is 3.2. Chest x-rays shows postsurgical changes. The endotracheal tube has been removed. Other lines appear to be in good position. Objective - Vital Signs Vital signs: Vital Signs Temp 100.2 F H 05/30/23 08:00 Pulse 80 05/30/23 09:00 Resp 17 05/30/23 09:00 BP 163/78 05/29/23 06:01 Pulse Ox 93 L 05/30/23 09:00 FiO2 50 05/29/23 16:01 Intake & Output 05/29/23 05/30/23 05/30/23 18:59 06:59 18:59 Intake Total 5516.588 4442.590 677.154 Output Total 1420 910 255 Balance -344.962 180.590 422.154 Weight 97.1 kg 97.1 kg Intake: IV 1016.5 786.0 300.0 ACETAMINOPHEN IV (For NPO 100 ) 1,000 mg In Empty Bag 1 bag @ 400 mls/hr IVPB Q6H [facility] Rx#:[id number] CO/CI 190 60 20 Lactated Ringers 1,000 ml 350 600 100 @ 20 mls/hr IV .Q24H [facility] Rx#:[id number] Magnesium Sulfate-D5w Pmx 200 100 1 gm In Dextrose/Water 1 100ml.bag @ 100 mls/hr IVPB Q1H [facility] Rx#: [id number] Nitroglycerin-D5w Pmx 50 10.5 18.0 3.0 mg In Dextrose/Water 1 250ml.bag @ 5 MCG/MIN 1.5 mls/hr IV .Q24H [facility] Rx#: [id number] ceFAZolin 2 gm In Sodium 50 50 Chloride 0.9% 50 ml @ 100 mls/hr IVPB Q8HR [facility] Rx# :[id number] pressure bag 63 108 27 Intake, IV Titration 58.538 304.590 17.154 Amount Albumin Human 5% 250 ml 250 In Empty Bag 1 bag @ 250 mls/hr IVPB Q1HR PRN Rx#: [id number] Dexmedetomidine/0.9% NaCl 6.467 12.893 (Pmx) 400 mcg In Empty Bag 1 bag @ Titrate IV . Q0M [facility] Rx#:[id number] Insulin Regular 100 unit 16.472 41.697 17.154 In Sodium Chloride 0.9% 100 ml @ Per Protocol IV .Q0M [facility] Rx#:[id number] propofoL 1,000 mg In 35.599 Empty Bag 1 bag @ Titrate IV .Q0M [facility] Rx#: [id number] Oral 360 Output: Chest Tube Drainage 450 420 110 Mediastinal 220 200 10 left and right 230 220 100 Urine 570 490 145 Estimated Blood Loss 400 Other: Voiding Method Indwelling Catheter Indwelling Catheter ABP, PAP, CO, CI - Last Documented Arterial Blood Pressure 129/45 Pulmonary Artery Pressure 20/14 Cardiac Output 5.8 Cardiac Index 2.8 - Exam No acute distress, extubated, currently on nasal O2. HEENT examination is grossly unremarkable. Neck supple. Full range of motion. No adenopathy thyromegaly or neck vein distention. Cardiovascular examination reveals regular rhythm rate. S1-S2 normal. No S3 or S4. No discernible murmur noted. Heart rate 80 bpm. Lungs reveal clear breath sounds. Breath sounds are equal bilaterally. No adventitious lung sounds including wheezes rhonchi or crackles. Saturations are 84 %. Abdomen soft without bowel sounds. No masses. Extremities are intact. No cyanosis clubbing or edema. Skin is without rash or lesion. Neurologic examination is within normal range. - Labs CBC & Chem 7: 05/30/23 05:17 05/30/23 05:17 Labs: Abnormal Lab Results - Last 24 Hours (Table) 05/23/23 05/29/23 05/29/23 Range/Units 08:56 12:06 12:14 WBC 11.2 H (3.8-10.6) k/uL RBC 3.61 L (4.30-5.90) m/uL Hgb 11.2 L (13.0-17.5) gm/dL Hct 33.8 L (39.0-53.0) % Neutrophils # 9.1 H (1.3-7.7) k/uL Lymphocytes # (1.0-4.8) k/uL INR (<1.2) ABG pH (7.35-7.45) ABG pO2 (83-108) mmHg ABG HCO3 (21-25) mmol/L ABG O2 Saturation (94-97) % Chloride (98-107) mmol/L Carbon Dioxide (22-30) mmol/L BUN (9-20) mg/dL Glucose (74-99) mg/dL POC Glucose (mg/dL) 136 H (70-110) mg/dL Magnesium (1.6-2.3) mg/dL AST (17-59) U/L ALT (4-49) U/L Total Protein (6.3-8.2) g/dL Albumin (3.5-5.0) g/dL Crossmatch See Detail 05/29/23 05/29/23 05/29/23 Range/Units 12:14 12:14 12:33 WBC (3.8-10.6) k/uL RBC (4.30-5.90) m/uL Hgb (13.0-17.5) gm/dL Hct (39.0-53.0) % Neutrophils # (1.3-7.7) k/uL Lymphocytes # (1.0-4.8) k/uL INR 1.2 H (<1.2) ABG pH 7.33 L (7.35-7.45) ABG pO2 147 H (83-108) mmHg ABG HCO3 20 L (21-25) mmol/L ABG O2 Saturation 98.2 H (94-97) % Chloride 112 H (98-107) mmol/L Carbon Dioxide 16 L (22-30) mmol/L BUN 21 H (9-20) mg/dL Glucose 132 H (74-99) mg/dL POC Glucose (mg/dL) (70-110) mg/dL Magnesium 1.4 L (1.6-2.3) mg/dL AST 169 H (17-59) U/L ALT 146 H (4-49) U/L Total Protein 5.7 L (6.3-8.2) g/dL Albumin (3.5-5.0) g/dL Crossmatch 05/29/23 05/29/23 05/29/23 Range/Units 13:02 14:11 15:05 WBC (3.8-10.6) k/uL RBC 3.73 L (4.30-5.90) m/uL Hgb 11.6 L (13.0-17.5) gm/dL Hct 35.0 L (39.0-53.0) % Neutrophils # 8.5 H (1.3-7.7) k/uL Lymphocytes # 0.7 L (1.0-4.8) k/uL INR (<1.2) ABG pH (7.35-7.45) ABG pO2 (83-108) mmHg ABG HCO3 (21-25) mmol/L ABG O2 Saturation (94-97) % Chloride (98-107) mmol/L Carbon Dioxide (22-30) mmol/L BUN (9-20) mg/dL Glucose (74-99) mg/dL POC Glucose (mg/dL) 136 H 158 H (70-110) mg/dL Magnesium (1.6-2.3) mg/dL AST (17-59) U/L ALT (4-49) U/L Total Protein (6.3-8.2) g/dL Albumin (3.5-5.0) g/dL Crossmatch 05/29/23 05/29/23 05/29/23 Range/Units 15:08 16:49 17:07 WBC (3.8-10.6) k/uL RBC (4.30-5.90) m/uL Hgb (13.0-17.5) gm/dL Hct (39.0-53.0) % Neutrophils # (1.3-7.7) k/uL Lymphocytes # (1.0-4.8) k/uL INR (<1.2) ABG pH 7.32 L (7.35-7.45) ABG pO2 77 L (83-108) mmHg ABG HCO3 20 L (21-25) mmol/L ABG O2 Saturation (94-97) % Chloride (98-107) mmol/L Carbon Dioxide (22-30) mmol/L BUN (9-20) mg/dL Glucose (74-99) mg/dL POC Glucose (mg/dL) 186 H 190 H (70-110) mg/dL Magnesium (1.6-2.3) mg/dL AST (17-59) U/L ALT (4-49) U/L Total Protein (6.3-8.2) g/dL Albumin (3.5-5.0) g/dL Crossmatch 05/29/23 05/29/23 05/29/23 Range/Units 18:10 18:10 19:03 WBC (3.8-10.6) k/uL RBC 3.74 L (4.30-5.90) m/uL Hgb 11.6 L (13.0-17.5) gm/dL Hct 34.9 L (39.0-53.0) % Neutrophils # 9.6 H (1.3-7.7) k/uL Lymphocytes # 0.4 L (1.0-4.8) k/uL INR (<1.2) ABG pH (7.35-7.45) ABG pO2 (83-108) mmHg ABG HCO3 (21-25) mmol/L ABG O2 Saturation (94-97) % Chloride (98-107) mmol/L Carbon Dioxide (22-30) mmol/L BUN (9-20) mg/dL Glucose (74-99) mg/dL POC Glucose (mg/dL) 179 H 166 H (70-110) mg/dL Magnesium (1.6-2.3) mg/dL AST (17-59) U/L ALT (4-49) U/L Total Protein (6.3-8.2) g/dL Albumin (3.5-5.0) g/dL Crossmatch 05/29/23 05/29/23 05/29/23 Range/Units 20:11 21:14 22:05 WBC (3.8-10.6) k/uL RBC (4.30-5.90) m/uL Hgb (13.0-17.5) gm/dL Hct (39.0-53.0) % Neutrophils # (1.3-7.7) k/uL Lymphocytes # (1.0-4.8) k/uL INR (<1.2) ABG pH (7.35-7.45) ABG pO2 (83-108) mmHg ABG HCO3 (21-25) mmol/L ABG O2 Saturation (94-97) % Chloride (98-107) mmol/L Carbon Dioxide (22-30) mmol/L BUN (9-20) mg/dL Glucose (74-99) mg/dL POC Glucose (mg/dL) 141 H 137 H 135 H (70-110) mg/dL Magnesium (1.6-2.3) mg/dL AST (17-59) U/L ALT (4-49) U/L Total Protein (6.3-8.2) g/dL Albumin (3.5-5.0) g/dL Crossmatch 05/29/23 05/30/23 05/30/23 Range/Units 23:02 00:07 01:11 WBC (3.8-10.6) k/uL RBC (4.30-5.90) m/uL Hgb (13.0-17.5) gm/dL Hct (39.0-53.0) % Neutrophils # (1.3-7.7) k/uL Lymphocytes # (1.0-4.8) k/uL INR (<1.2) ABG pH (7.35-7.45) ABG pO2 (83-108) mmHg ABG HCO3 (21-25) mmol/L ABG O2 Saturation (94-97) % Chloride (98-107) mmol/L Carbon Dioxide (22-30) mmol/L BUN (9-20) mg/dL Glucose (74-99) mg/dL POC Glucose (mg/dL) 138 H 133 H 141 H (70-110) mg/dL Magnesium (1.6-2.3) mg/dL AST (17-59) U/L ALT (4-49) U/L Total Protein (6.3-8.2) g/dL Albumin (3.5-5.0) g/dL Crossmatch 05/30/23 05/30/23 05/30/23 Range/Units 02:12 03:08 04:08 WBC (3.8-10.6) k/uL RBC (4.30-5.90) m/uL Hgb (13.0-17.5) gm/dL Hct (39.0-53.0) % Neutrophils # (1.3-7.7) k/uL Lymphocytes # (1.0-4.8) k/uL INR (<1.2) ABG pH (7.35-7.45) ABG pO2 (83-108) mmHg ABG HCO3 (21-25) mmol/L ABG O2 Saturation (94-97) % Chloride (98-107) mmol/L Carbon Dioxide (22-30) mmol/L BUN (9-20) mg/dL Glucose (74-99) mg/dL POC Glucose (mg/dL) 141 H 134 H 123 H (70-110) mg/dL Magnesium (1.6-2.3) mg/dL AST (17-59) U/L ALT (4-49) U/L Total Protein (6.3-8.2) g/dL Albumin (3.5-5.0) g/dL Crossmatch 05/30/23 05/30/23 05/30/23 Range/Units 05:16 05:17 05:17 WBC 11.6 H (3.8-10.6) k/uL RBC 3.89 L (4.30-5.90) m/uL Hgb 11.9 L (13.0-17.5) gm/dL Hct 36.2 L (39.0-53.0) % Neutrophils # 9.9 H (1.3-7.7) k/uL Lymphocytes # 0.9 L (1.0-4.8) k/uL INR (<1.2) ABG pH (7.35-7.45) ABG pO2 (83-108) mmHg ABG HCO3 (21-25) mmol/L ABG O2 Saturation (94-97) % Chloride 110 H (98-107) mmol/L Carbon Dioxide 18 L (22-30) mmol/L BUN (9-20) mg/dL Glucose 125 H (74-99) mg/dL POC Glucose (mg/dL) 126 H (70-110) mg/dL Magnesium (1.6-2.3) mg/dL AST 88 H (17-59) U/L ALT 123 H (4-49) U/L Total Protein 5.5 L (6.3-8.2) g/dL Albumin 3.2 L (3.5-5.0) g/dL Crossmatch 05/30/23 05/30/23 05/30/23 Range/Units 06:13 06:58 08:14 WBC (3.8-10.6) k/uL RBC (4.30-5.90) m/uL Hgb (13.0-17.5) gm/dL Hct (39.0-53.0) % Neutrophils # (1.3-7.7) k/uL Lymphocytes # (1.0-4.8) k/uL INR (<1.2) ABG pH (7.35-7.45) ABG pO2 (83-108) mmHg ABG HCO3 (21-25) mmol/L ABG O2 Saturation (94-97) % Chloride (98-107) mmol/L Carbon Dioxide (22-30) mmol/L BUN (9-20) mg/dL Glucose (74-99) mg/dL POC Glucose (mg/dL) 146 H 167 H 163 H (70-110) mg/dL Magnesium (1.6-2.3) mg/dL AST (17-59) U/L ALT (4-49) U/L Total Protein (6.3-8.2) g/dL Albumin (3.5-5.0) g/dL Crossmatch 05/30/23 05/30/23 Range/Units 09:06 10:29 WBC (3.8-10.6) k/uL RBC (4.30-5.90) m/uL Hgb (13.0-17.5) gm/dL Hct (39.0-53.0) % Neutrophils # (1.3-7.7) k/uL Lymphocytes # (1.0-4.8) k/uL INR (<1.2) ABG pH (7.35-7.45) ABG pO2 (83-108) mmHg ABG HCO3 (21-25) mmol/L ABG O2 Saturation (94-97) % Chloride (98-107) mmol/L Carbon Dioxide (22-30) mmol/L BUN (9-20) mg/dL Glucose (74-99) mg/dL POC Glucose (mg/dL) 152 H 129 H (70-110) mg/dL Magnesium (1.6-2.3) mg/dL AST (17-59) U/L ALT (4-49) U/L Total Protein (6.3-8.2) g/dL Albumin (3.5-5.0) g/dL Crossmatch Assessment and Plan Assessment: Postop day #1, status post off-pump three-vessel bypass surgery. Routine postoperative ventilator management, with successful extubation on May 29, 2023. History of hypertension. History of hyperlipidemia. History of type 2 diabetes mellitus. History of TIA x 4, with residual left-sided weakness. History of BPH. History of peripheral neuropathy. History of colon cancer, status post colon resection. Plan: Plan dated May 29, 2023. The patient is seen today in room 260. Labs, x-rays, and medications are reviewed. The patient's cardiac output is 5.5. The cardiac index is 2.6. Blood gases show pO2 of 147, pCO2 of 39, pH is 7.33, on 100% oxygen. The patient's FiO2 is turned down to 70%. The patient continues on insulin at 1 unit an hour, nitroglycerin at 5 mcg/min, lactated Ringer's at 50 cc an hour, propofol at 25 mcg/kg/min, and amiodarone at 1 mg/min. We will continue to follow, and make recommendations along the way. I suspect the patient will be relatively quick extubation. We will continue to follow. Plan dated May 30, 2023. The patient was extubated yesterday. He is postoperative day #1. Labs, x-rays, and medications are reviewed. Currently he is on oxygen at 4 L. He is getting lactated Ringer's at 50 cc an hour, amiodarone at 0.5 mg/min, and insulin drip at 5.5 units an hour. We will continue to follow the patient, make recommendat ions along the way. We encourage deep breathing, coughing, and clearing of secretions. We also recommended hourly use of the incentive spirometer. We will continue to follow. Prognosis is guarded. Time with Patient: Greater than 30
--- NOTE | 2023-05-30 11:34 | P.PN ---
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 Patient tolerated the procedure well without any immediate postoperative complications. Patient was admitted to the ICU and was extubateda t 5 hours. Patient seen and examined at bedside. He is complaining of abdominal and chest pain at his incision sites and tube sites. He denies any shortness of breath. He is feeling slightly lightheaded. He denies any nausea. We discussed that he will need insulin now but likely should be able to discharge back home on his metformin. Vital signs reviewed General: Nontoxic, due to pain after getting up to chair, appears at stated age Cardiovascular: S1S2 reg, no murmur Gloster in place, mediastinal and thoracic chest tubes in place Lungs: Decreased breath sounds bilateral, no rhonchi, no rales, no accessory muscle use Abdominal: Soft, nontender to palpation, no guarding Ext: No gross muscle atrophy, trace edema b/l lower extremities, no contractures Neuro: CN II-XI grossly intact, no focal neuro deficits Psych: Alert, oriented, appropriate affect Assessment/Plan: 73-year-old male status post 4 vessel coronary artery bypass grafting Transaminitis Coronary artery disease Hypertension Dyslipidemia -CT surgery note reviewed- Maximize medical therapy, incision patient to oral am iodarone discontinue Gloster -Pulmonary note reviewed: Continue current care, encourage incentive spirometer -Amiodarone 400 mg twice daily, aspirin 325 mg daily, Lipitor 40 mg daily, Plavix 75 mg daily, Lopressor 25 mg twice daily Acute blood loss anemia, anticipated outcome of surgery -No indication for transfusion at this time -Repeat CBC in a.m. Diabetes mellitus type 2 with neuropathy -Hemoglobin A1c 7.5 -Hold metformin, patient is not chronically on insulin -Continue with insulin drip for another 24 hours - follow BS Chronic: History of CVA x 4 History of seizure disorder History of colon cancer in the past Imaging: X-rays reviewed by myself shows send and tubes in appropriate position, no acute cardiopulmonary process. Data Review: Blood sugars have ranged from 1 29-1 67 this morning. Labs reviewed from today include CBC and CMP which are remarkable for white blood cell count 11.6, hemoglobin 11.9, chloride 110, carbon dioxide 18, AST 88, ALT 123 Thank you for allowing us to participate in the care of this pleasant patient. Do not hesitate to contact us with questions. Someone can be reached from the [facility] hospitalist group all hours of the day at [phone] or via perfect serve. This dictation was prepared using [employer] voice recognition software. Though every attempt is made to correct errors during dictation some may still exist. Objective - Vital Signs Vital signs: Vital Signs Temp 100.2 F H 05/30/23 08:00 Pulse 76 05/30/23 11:20 Resp 20 05/30/23 09:30 BP 163/78 05/29/23 06:01 Pulse Ox 93 L 05/30/23 09:30 FiO2 50 05/29/23 16:01 Intake & Output 05/29/23 05/30/23 05/30/23 18:59 06:59 18:59 Intake Total 3248.863 6416.590 1239.154 Output Total 1420 910 345 Balance -344.962 180.590 894.154 Weight 97.1 kg 97.1 kg Intake: IV 1016.5 786.0 372.0 ACETAMINOPHEN IV (For NPO 100 ) 1,000 mg In Empty Bag 1 bag @ 400 mls/hr IVPB Q6H [facility] Rx#:[id number] CO/CI 190 60 20 Lactated Ringers 1,000 ml 350 600 160 @ 20 mls/hr IV .Q24H [facility] Rx#:[id number] Magnesium Sulfate-D5w Pmx 200 100 1 gm In Dextrose/Water 1 100ml.bag @ 100 mls/hr IVPB Q1H [facility] Rx#: [id number] Nitroglycerin-D5w Pmx 50 10.5 18.0 3.0 mg In Dextrose/Water 1 250ml.bag @ 5 MCG/MIN 1.5 mls/hr IV .Q24H [facility] Rx#: [id number] ceFAZolin 2 gm In Sodium 50 50 Chloride 0.9% 50 ml @ 100 mls/hr IVPB Q8HR [facility] Rx# :[id number] pressure bag 63 108 39 Intake, IV Titration 58.538 304.590 17.154 Amount Albumin Human 5% 250 ml 250 In Empty Bag 1 bag @ 250 mls/hr IVPB Q1HR PRN Rx#: [id number] Dexmedetomidine/0.9% NaCl 6.467 12.893 (Pmx) 400 mcg In Empty Bag 1 bag @ Titrate IV . Q0M [facility] Rx#:[id number] Insulin Regular 100 unit 16.472 41.697 17.154 In Sodium Chloride 0.9% 100 ml @ Per Protocol IV .Q0M [facility] Rx#:[id number] propofoL 1,000 mg In 35.599 Empty Bag 1 bag @ Titrate IV .Q0M [facility] Rx#: [id number] Oral 850 Output: Chest Tube Drainage 450 420 150 Mediastinal 220 200 30 left and right 230 220 120 Urine 570 490 195 Estimated Blood Loss 400 Other: Voiding Method Indwelling Catheter Indwelling Catheter ABP, PAP, CO, CI - Last Documented Arterial Blood Pressure 137/50 Pulmonary Artery Pressure 20/14 Cardiac Output 5.8 Cardiac Index 2.8 - Labs CBC & Chem 7: 05/30/23 05:17 05/30/23 05:17 Labs: Abnormal Lab Results - Last 24 Hours (Table) 05/23/23 05/29/23 05/29/23 Range/Units 08:56 12:06 12:14 WBC 11.2 H (3.8-10.6) k/uL RBC 3.61 L (4.30-5.90) m/uL Hgb 11.2 L (13.0-17.5) gm/dL Hct 33.8 L (39.0-53.0) % Neutrophils # 9.1 H (1.3-7.7) k/uL Lymphocytes # (1.0-4.8) k/uL INR (<1.2) ABG pH (7.35-7.45) ABG pO2 (83-108) mmHg ABG HCO3 (21-25) mmol/L ABG O2 Saturation (94-97) % Chloride (98-107) mmol/L Carbon Dioxide (22-30) mmol/L BUN (9-20) mg/dL Glucose (74-99) mg/dL POC Glucose (mg/dL) 136 H (70-110) mg/dL Magnesium (1.6-2.3) mg/dL AST (17-59) U/L ALT (4-49) U/L Total Protein (6.3-8.2) g/dL Albumin (3.5-5.0) g/dL Crossmatch See Detail 05/29/23 05/29/23 05/29/23 Range/Units 12:14 12:14 12:33 WBC (3.8-10.6) k/uL RBC (4.30-5.90) m/uL Hgb (13.0-17.5) gm/dL Hct (39.0-53.0) % Neutrophils # (1.3-7.7) k/uL Lymphocytes # (1.0-4.8) k/uL INR 1.2 H (<1.2) ABG pH 7.33 L (7.35-7.45) ABG pO2 147 H (83-108) mmHg ABG HCO3 20 L (21-25) mmol/L ABG O2 Saturation 98.2 H (94-97) % Chloride 112 H (98-107) mmol/L Carbon Dioxide 16 L (22-30) mmol/L BUN 21 H (9-20) mg/dL Glucose 132 H (74-99) mg/dL POC Glucose (mg/dL) (70-110) mg/dL Magnesium 1.4 L (1.6-2.3) mg/dL AST 169 H (17-59) U/L ALT 146 H (4-49) U/L Total Protein 5.7 L (6.3-8.2) g/dL Albumin (3.5-5.0) g/dL Crossmatch 05/29/23 05/29/23 05/29/23 Range/Units 13:02 14:11 15:05 WBC (3.8-10.6) k/uL RBC 3.73 L (4.30-5.90) m/uL Hgb 11.6 L (13.0-17.5) gm/dL Hct 35.0 L (39.0-53.0) % Neutrophils # 8.5 H (1.3-7.7) k/uL Lymphocytes # 0.7 L (1.0-4.8) k/uL INR (<1.2) ABG pH (7.35-7.45) ABG pO2 (83-108) mmHg ABG HCO3 (21-25) mmol/L ABG O2 Saturation (94-97) % Chloride (98-107) mmol/L Carbon Dioxide (22-30) mmol/L BUN (9-20) mg/dL Glucose (74-99) mg/dL POC Glucose (mg/dL) 136 H 158 H (70-110) mg/dL Magnesium (1.6-2.3) mg/dL AST (17-59) U/L ALT (4-49) U/L Total Protein (6.3-8.2) g/dL Albumin (3.5-5.0) g/dL Crossmatch 05/29/23 05/29/23 05/29/23 Range/Units 15:08 16:49 17:07 WBC (3.8-10.6) k/uL RBC (4.30-5.90) m/uL Hgb (13.0-17.5) gm/dL Hct (39.0-53.0) % Neutrophils # (1.3-7.7) k/uL Lymphocytes # (1.0-4.8) k/uL INR (<1.2) ABG pH 7.32 L (7.35-7.45) ABG pO2 77 L (83-108) mmHg ABG HCO3 20 L (21-25) mmol/L ABG O2 Saturation (94-97) % Chloride (98-107) mmol/L Carbon Dioxide (22-30) mmol/L BUN (9-20) mg/dL Glucose (74-99) mg/dL POC Glucose (mg/dL) 186 H 190 H (70-110) mg/dL Magnesium (1.6-2.3) mg/dL AST (17-59) U/L ALT (4-49) U/L Total Protein (6.3-8.2) g/dL Albumin (3.5-5.0) g/dL Crossmatch 05/29/23 05/29/23 05/29/23 Range/Units 18:10 18:10 19:03 WBC (3.8-10.6) k/uL RBC 3.74 L (4.30-5.90) m/uL Hgb 11.6 L (13.0-17.5) gm/dL Hct 34.9 L (39.0-53.0) % Neutrophils # 9.6 H (1.3-7.7) k/uL Lymphocytes # 0.4 L (1.0-4.8) k/uL INR (<1.2) ABG pH (7.35-7.45) ABG pO2 (83-108) mmHg ABG HCO3 (21-25) mmol/L ABG O2 Saturation (94-97) % Chloride (98-107) mmol/L Carbon Dioxide (22-30) mmol/L BUN (9-20) mg/dL Glucose (74-99) mg/dL POC Glucose (mg/dL) 179 H 166 H (70-110) mg/dL Magnesium (1.6-2.3) mg/dL AST (17-59) U/L ALT (4-49) U/L Total Protein (6.3-8.2) g/dL Albumin (3.5-5.0) g/dL Crossmatch 05/29/23 05/29/23 05/29/23 Range/Units 20:11 21:14 22:05 WBC (3.8-10.6) k/uL RBC (4.30-5.90) m/uL Hgb (13.0-17.5) gm/dL Hct (39.0-53.0) % Neutrophils # (1.3-7.7) k/uL Lymphocytes # (1.0-4.8) k/uL INR (<1.2) ABG pH (7.35-7.45) ABG pO2 (83-108) mmHg ABG HCO3 (21-25) mmol/L ABG O2 Saturation (94-97) % Chloride (98-107) mmol/L Carbon Dioxide (22-30) mmol/L BUN (9-20) mg/dL Glucose (74-99) mg/dL POC Glucose (mg/dL) 141 H 137 H 135 H (70-110) mg/dL Magnesium (1.6-2.3) mg/dL AST (17-59) U/L ALT (4-49) U/L Total Protein (6.3-8.2) g/dL Albumin (3.5-5.0) g/dL Crossmatch 05/29/23 05/30/23 05/30/23 Range/Units 23:02 00:07 01:11 WBC (3.8-10.6) k/uL RBC (4.30-5.90) m/uL Hgb (13.0-17.5) gm/dL Hct (39.0-53.0) % Neutrophils # (1.3-7.7) k/uL Lymphocytes # (1.0-4.8) k/uL INR (<1.2) ABG pH (7.35-7.45) ABG pO2 (83-108) mmHg ABG HCO3 (21-25) mmol/L ABG O2 Saturation (94-97) % Chloride (98-107) mmol/L Carbon Dioxide (22-30) mmol/L BUN (9-20) mg/dL Glucose (74-99) mg/dL POC Glucose (mg/dL) 138 H 133 H 141 H (70-110) mg/dL Magnesium (1.6-2.3) mg/dL AST (17-59) U/L ALT (4-49) U/L Total Protein (6.3-8.2) g/dL Albumin (3.5-5.0) g/dL Crossmatch 05/30/23 05/30/23 05/30/23 Range/Units 02:12 03:08 04:08 WBC (3.8-10.6) k/uL RBC (4.30-5.90) m/uL Hgb (13.0-17.5) gm/dL Hct (39.0-53.0) % Neutrophils # (1.3-7.7) k/uL Lymphocytes # (1.0-4.8) k/uL INR (<1.2) ABG pH (7.35-7.45) ABG pO2 (83-108) mmHg ABG HCO3 (21-25) mmol/L ABG O2 Saturation (94-97) % Chloride (98-107) mmol/L Carbon Dioxide (22-30) mmol/L BUN (9-20) mg/dL Glucose (74-99) mg/dL POC Glucose (mg/dL) 141 H 134 H 123 H (70-110) mg/dL Magnesium (1.6-2.3) mg/dL AST (17-59) U/L ALT (4-49) U/L Total Protein (6.3-8.2) g/dL Albumin (3.5-5.0) g/dL Crossmatch 05/30/23 05/30/23 05/30/23 Range/Units 05:16 05:17 05:17 WBC 11.6 H (3.8-10.6) k/uL RBC 3.89 L (4.30-5.90) m/uL Hgb 11.9 L (13.0-17.5) gm/dL Hct 36.2 L (39.0-53.0) % Neutrophils # 9.9 H (1.3-7.7) k/uL Lymphocytes # 0.9 L (1.0-4.8) k/uL INR (<1.2) ABG pH (7.35-7.45) ABG pO2 (83-108) mmHg ABG HCO3 (21-25) mmol/L ABG O2 Saturation (94-97) % Chloride 110 H (98-107) mmol/L Carbon Dioxide 18 L (22-30) mmol/L BUN (9-20) mg/dL Glucose 125 H (74-99) mg/dL POC Glucose (mg/dL) 126 H (70-110) mg/dL Magnesium (1.6-2.3) mg/dL AST 88 H (17-59) U/L ALT 123 H (4-49) U/L Total Protein 5.5 L (6.3-8.2) g/dL Albumin 3.2 L (3.5-5.0) g/dL Crossmatch 05/30/23 05/30/23 05/30/23 Range/Units 06:13 06:58 08:14 WBC (3.8-10.6) k/uL RBC (4.30-5.90) m/uL Hgb (13.0-17.5) gm/dL Hct (39.0-53.0) % Neutrophils # (1.3-7.7) k/uL Lymphocytes # (1.0-4.8) k/uL INR (<1.2) ABG pH (7.35-7.45) ABG pO2 (83-108) mmHg ABG HCO3 (21-25) mmol/L ABG O2 Saturation (94-97) % Chloride (98-107) mmol/L Carbon Dioxide (22-30) mmol/L BUN (9-20) mg/dL Glucose (74-99) mg/dL POC Glucose (mg/dL) 146 H 167 H 163 H (70-110) mg/dL Magnesium (1.6-2.3) mg/dL AST (17-59) U/L ALT (4-49) U/L Total Protein (6.3-8.2) g/dL Albumin (3.5-5.0) g/dL Crossmatch 05/30/23 05/30/23 Range/Units 09:06 10:29 WBC (3.8-10.6) k/uL RBC (4.30-5.90) m/uL Hgb (13.0-17.5) gm/dL Hct (39.0-53.0) % Neutrophils # (1.3-7.7) k/uL Lymphocytes # (1.0-4.8) k/uL INR (<1.2) ABG pH (7.35-7.45) ABG pO2 (83-108) mmHg ABG HCO3 (21-25) mmol/L ABG O2 Saturation (94-97) % Chloride (98-107) mmol/L Carbon Dioxide (22-30) mmol/L BUN (9-20) mg/dL Glucose (74-99) mg/dL POC Glucose (mg/dL) 152 H 129 H (70-110) mg/dL Magnesium (1.6-2.3) mg/dL AST (17-59) U/L ALT (4-49) U/L Total Protein (6.3-8.2) g/dL Albumin (3.5-5.0) g/dL Crossmatch
[2023-05-30 12:00] LABS: Glucose,Whole Blood 135 mg/dL (70-110)
[2023-05-30] MEDS: amLODIPine 5 MG TAB PO SCH (12:06)
[2023-05-30 13:01] LABS: Glucose,Whole Blood 134 mg/dL (70-110)
--- NOTE | 2023-05-30 13:44 | CONS ---
CONSULTATION HISTORY OF PRESENT ILLNESS: This is a 73-year-old gentleman, who underwent recent cardiac catheterization by Dr. Bernard that revealed severe left main stenosis and was brought in electively for bypass surgery. Today is postop day #1. He is awake, alert, extubated, in sinus rhythm and hemodynamically stable. The patient underwent bypass surgery x4 with BOO to LAD, radial artery graft to OM and saphenous vein graft to PDA. The left atrial appendage has been ligated with a 35 mm atrial clip. The patient denies any symptoms this morning other than some discomfort at the incision sites. PAST MEDICAL HISTORY: Significant for coronary artery disease, [id number] diabetes, hypertension. MEDICATIONS: At home include: 1. Toprol-XL 25 mg daily. 2. Metformin 850 b.i.d. 3. Amlodipine 10 daily. 4. Flomax. 5. Losartan 100 daily. 6. Plavix. 7. Neurontin. ALLERGIES: To Crestor. FAMILY HISTORY: Negative for premature coronary artery disease. SOCIAL HISTORY: Negative for current smoking, EtOH abuse or drug abuse. REVIEW OF SYSTEMS: 14 out of 14 review of systems has been performed, pertinent are as documented. PHYSICAL EXAMINATION: VITAL SIGNS: Heart rate is 80 beats, blood pressure is 137/50, respiratory rate is 18. NECK: There is no jugular venous distention. Carotid upstroke is normal. There is no bruit. CHEST: Reveals diminished air entry at the bases. HEART: Reveals first and second heart sounds. No gallop. No murmur. ABDOMEN: Soft, nontender. EXTREMITIES: Did not reveal any edema. Peripheral pulses are felt. LABORATORY DATA: Labs show that hemoglobin is 11.9, potassium is 4.1, creatinine is 1.1. AST and ALT are elevated. This is a sudden jump compared to where it was prior to surgery. ASSESSMENT: Coronary artery disease, status post bypass surgery, postoperative day #1. PLAN: Continue with aspirin, Plavix, amlodipine, and Lopressor. We will hold Lipitor until the liver enzymes get better. MMODL / IJN: [id number] /
[2023-05-30 13:58] LABS: Glucose,Whole Blood 152 mg/dL (70-110)
[2023-05-30 15:08] LABS: Glucose,Whole Blood 167 mg/dL (70-110)
[2023-05-30 16:01] LABS: Glucose,Whole Blood 130 mg/dL (70-110)
[2023-05-30 16:58] LABS: Glucose,Whole Blood 117 mg/dL (70-110)
[2023-05-30] MEDS: TAMSULOSIN 0.4 MG CAP.ER.24H PO SCH (18:07)
[2023-05-30 18:12] LABS: Glucose,Whole Blood 184 mg/dL (70-110)
[2023-05-30 18:58] LABS: Glucose,Whole Blood 164 mg/dL (70-110)
[2023-05-30 20:01] LABS: Glucose,Whole Blood 146 mg/dL (70-110)
[2023-05-30 21:02] LABS: Glucose,Whole Blood 190 mg/dL (70-110)
[2023-05-30 21:55] LABS: Glucose,Whole Blood 154 mg/dL (70-110)
[2023-05-30 23:03] LABS: Glucose,Whole Blood 150 mg/dL (70-110)
[2023-05-30 23:59] LABS: Glucose,Whole Blood 143 mg/dL (70-110)
[2023-05-31 01:06] LABS: Glucose,Whole Blood 134 mg/dL (70-110)
[2023-05-31] MEDS: DEXTROSE 5% IN WATER 100 ML with AMIODARONE 150 MG IV PRN (01:48)
[2023-05-31] MEDS: AMIODARONE 360 MG in DEXTROSE 5% IN WATER 200 ML IV ONE (02:13)
[2023-05-31 02:28] LABS: Glucose,Whole Blood 159 mg/dL (70-110)
[2023-05-31 03:09] LABS: Glucose,Whole Blood 169 mg/dL (70-110)
[2023-05-31 03:57] LABS: Glucose,Whole Blood 150 mg/dL (70-110)
[2023-05-31 04:13] LABS: Basophils % (A) 0 %; Eosinophils % (A) 0 %; HCT 32.9 % (39.0-53.0); HGB 10.5 gm/dL (13.0-17.5); Lymphocytes % (A) 9 %; MCH 30.1 pg (25.0-35.0); MCHC 31.8 g/dL (31.0-37.0); MCV 94.7 fL (80.0-100.0); Mean Platelet Volume 8.5; Monocytes # (A) 0.5 k/uL (0-1.0); Monocytes % (A) 4 %; Neutrophils % (A) 86 %; Platelet Count 166 k/uL (150-450); RBC 3.47 m/uL (4.30-5.90); WBC 11.7 k/uL (3.8-10.6)
[2023-05-31 04:49] LABS: ALT 62 U/L (4-49); AST 78 U/L (17-59); African American GFR (CKD) 49 (>60 ml/min/1.73 sqM); Alkaline Phosphatase 52 U/L (38-126); Anion Gap 7 mmol/L; Blood Urea Nitrogen 23 mg/dL (9-20); Calcium 8.4 mg/dL (8.4-10.2); Carbon Dioxide 19 mmol/L (22-30); Chloride 107 mmol/L (98-107); Glucose 145 mg/dL (74-99); Magnesium 2.1 mg/dL (1.6-2.3); Non-African American GFR(CKD) 42 (>60 ml/min/1.73 sqM); Potassium 4.4 mmol/L (3.5-5.1); Sodium 133 mmol/L (137-145); Total Bilirubin 0.3 mg/dL (0.2-1.3); Total Protein 5.3 g/dL (6.3-8.2)
[2023-05-31 06:21] LABS: Glucose,Whole Blood 130 mg/dL (70-110)
[2023-05-31] MEDS: PANTOPRAZOLE 40 MG TABLET PO SCH (06:51)
[2023-05-31 06:58] LABS: Glucose,Whole Blood 118 mg/dL (70-110)
[2023-05-31 08:06] LABS: Glucose,Whole Blood 168 mg/dL (70-110)
[2023-05-31] MEDS: AMIODARONE 450 MG in DEXTROSE 5% IN WATER 250 ML IV SCH (08:10)
--- NOTE | 2023-05-31 08:26 | XR ---
EXAMINATION TYPE: XR chest 1V portable DATE OF EXAM: 05/31/2023 4:29 AM CLINICAL INDICATION:Male, 73 years old with history of Post Operative Cardiac Surgery; [facility] COMPARISON: Chest radiograph from one day prior. TECHNIQUE: XR chest 1V portable Frontal view of the chest. FINDINGS: Lungs/Pleura: There is no evidence of pleural effusion, focal consolidation, or pneumothorax. Pulmonary vascularity: Unremarkable. Heart/mediastinum: Cardiomediastinal silhouette is unremarkable. Left atrial appendage occlusion kurt ce is present. Musculoskeletal: No acute osseous pathology. Midline sternotomy wires are noted. Other findings: None Lines/Tubes: There is a [place] catheter sheath remains, this is kinked and in the neck. Drainage tubes with tips projecting over the mediastinum. Bilateral thoracotomy tubes are present without evidence of pneumothorax. IMPRESSION: Rotated exam which appears stable given differences in technique.
[2023-05-31] MEDS: ALBUMIN HUMAN 25% 50 ML in EMPTY BAG 1 BAG IVPB ONE (08:49)
[2023-05-31] MEDS: METOPROLOL TARTRATE 25 MG TAB PO SCH (09:03)
[2023-05-31 09:09] LABS: Glucose,Whole Blood 149 mg/dL (70-110)
--- NOTE | 2023-05-31 09:36 | P.PN ---
Subjective Progress Note Date: 05/31/23 Principal diagnosis: Triple vessel coronary artery disease. 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 POD #2 off pump coronary artery bypass grafting x 3, left internal thoracic artery (in-situ) to left anterior descending coronary artery, radial artery from aorta to obtuse marginal artery, saphenous vein from aorta to posterior descending coronary artery, left atrial appendage ligation using #35mm AtriClip, endoscopic left radial and right greater saphenous vein harvest, graft flow measurements using the [employer]-stim flow meter system, and intraoperative transesophageal echocardiogram. Postoperative acute blood loss anemia, expected given hemodilution. Paroxysmal atrial fibrillation, a known common occurrence after cardiac surgery. The patient was seen and examined in follow-up today May 31, 2023 at his bedside in the intensive care unit. He is currently sitting up to the bedside chair, is awake, alert, oriented x 3 and is in no acute apparent distress. He denies any complaints of shortness of breath at this time, although is complaining of some surgical type pain currently rating his pain 4 out of 10 on the pain scale and is also complaining of some generalized weakness. Oxygen saturations are 94% on 3 L nasal cannula and he is achieving 500 mL on his incentive spirometry with encouragement. Bedside telemetry is showing atrial fibrillation heart rate 106 bpm. He continues on amiodarone 400 mg p.o. twice daily and metoprolol tartrate 25 mg p.o. twice daily. Right IJ cordis remains in place with continuous CVP monitoring, current CVP pressure 12 mmHg. Mediastinal, left and right pleural chest tubes remain in place to low continuous wall suction -20 cm H2O. No air leak is present. Draining thin serosanguineous drainage. Mediastinal chest tubes drained 40 mL output in the last 8 hours and 100 mL output in the last 24 hours. Left/right pleural chest tubes drained 40 mL output in the last 8 hours and 300 mL output in the last 24 hours. Patient reports he has been up ambulating in his room with assistance from nursing and therapy staff and generalized weakness. Chest x-ray and la boratory results reviewed. Objective - Vital Signs Vital signs: Vital Signs Temp 97.8 F 05/31/23 04:00 Pulse 99 05/31/23 06:51 Resp 19 05/31/23 06:51 BP 111/50 05/31/23 06:51 Pulse Ox 93 L 05/31/23 06:51 FiO2 50 05/29/23 16:01 Intake & Output 05/30/23 05/31/23 05/31/23 18:59 06:59 18:59 Intake Total 1777.823 911.251 33.449 Output Total 515 640 30 Balance 1262.823 271.251 3.449 Weight 97.1 kg 97.6 kg Intake: IV 624.0 332 26 CO/CI 20 Lactated Ringers 1,000 ml 370 260 20 @ 20 mls/hr IV .Q24H [facility] Rx#:[id number] Magnesium Sulfate-D5w Pmx 100 1 gm In Dextrose/Water 1 100ml.bag @ 100 mls/hr IVPB Q1H [facility] Rx#: [id number] Nitroglycerin-D5w Pmx 50 3.0 mg In Dextrose/Water 1 250ml.bag @ 5 MCG/MIN 1.5 mls/hr IV .Q24H [facility] Rx#: [id number] ceFAZolin 2 gm In Sodium 50 Chloride 0.9% 50 ml @ 100 mls/hr IVPB Q8HR [facility] Rx# :[id number] pressure bag 81 72 6 Intake, IV Titration 53.823 79.251 7.449 Amount Insulin Regular 100 unit 53.823 79.251 7.449 In Sodium Chloride 0.9% 100 ml @ Per Protocol IV .Q0M [facility] Rx#:[id number] Oral 850 500 Albumin 250 Albumin Human 5% 250 ml 250 In Empty Bag 1 bag @ 250 mls/hr IVPB Q1HR [facility] Rx#: [id number] Output: Chest Tube Drainage 190 270 0 Mediastinal 30 90 0 left and right 160 180 0 Urine 325 370 30 Other: Voiding Method Indwelling Catheter Indwelling Catheter ABP, PAP, CO, CI - Last Documented Arterial Blood Pressure 137/50 Pulmonary Artery Pressure 20/14 Cardiac Output 5.8 Cardiac Index 2.8 - Exam CONSTITUTIONAL: Sitting up to the bedside chair in the intensive care unit, appears comfortable, cooperative, no apparent acute distress. HEENT: Neck is supple, no JVD, no lymphadenopathy. Right IJ Cordis in place and functioning. RESPIRATORY: Lungs sounds essentially clear throughout, diminished to his bilateral bases. Respirations are symmetrical and nonlabored. Currently on 3 L nasal cannula with oxygen saturations 94%. Able to achieve 500 mL on his incentive spirometry. Strong cough. CARDIOVASCULAR: Regular rhythm and rate. S1 and S2 present, negative for S3, gallop or murmur. Sternum is stable. Palpable peripheral pulses bilaterally, +1 edema to his bilateral lower extremities. No calf pain or tenderness noted. Heart hugger in place with patient demonstrating appropriate use. Knee-high ZAKI hose and sequential compression devices in place to his bilateral lower extremities. GASTROINTESTINAL: Abdomen soft, nontender, nondistended. Hypoactive bowel sounds present 4 quadrants. Tolerating diet. Passing flatus. No guarding or rigidity. GENITOURINARY: Ceballos present draining clear, yellow urine. Urine output 255 mL in the last 8 hours. INTEGUMENTARY: Skin is warm and dry with no evidence of clubbing or cyanosis. Midline sternal incision clean dry and well approximated, covered with dry intact dressing. Right lower extremity EVH sites well approximated without redness or drainage. Left arm radial artery harvest sites clean, dry and approximated. No drainage or redness is present. NEUROLOGIC: Cranial nerves II through XII intact. Chronic left-sided weakness, residual from previous TIA. MUSKULOSKELETAL: Able to move all extremities, generalized weakness. PSYCHIATRIC: Alert and oriented to person place and time, appropriate affect, intact judgment and insight. INVASIVE LINES AND TUBES: Mediastinal/left and right pleural chest tubes present and connected to low continuous wall suction, no air leaks present. Mediastinal tube with 40 mL of thin serosanguineous drainage overnight, 100 mL output in the last 24 hours. Left/right pleural chest tube with 40 mL of thin serosanguineous drainage overnight, 300 mL output in the last 24 hours. Ventricular epicardial pacemaker wires present, connected to generator, VVI backup rate 50 bpm. Right internal jugular Cordis, right radial arterial line present. Current CVP 12 mmHg. - Allied health notes Allied health notes reviewed: nursing - Labs CBC & Chem 7: 05/31/23 04:02 05/31/23 04:02 Labs: Abnormal Lab Results - Last 24 Hours (Table) 05/29/23 05/29/23 05/29/23 Range/Units 08:39 09:28 09:54 WBC (3.8-10.6) k/uL RBC (4.30-5.90) m/uL Hgb (13.0-17.5) gm/dL Hct (39.0-53.0) % Neutrophils # (1.3-7.7) k/uL ABG pH 7.32 L (7.35-7.45) ABG pO2 162 H 133 H 154 H (83-108) mmHg ABG HCO3 (21-25) mmol/L ABG O2 Saturation 99.0 H 98.3 H 98.9 H (94-97) % ABG Potassium 4.9 H 4.8 H 4.7 H (3.4-4.5) mmol/L ABG Glucose 136 H 129 H 151 H (75-99) mg/dL ABG Lactic Acid 1.7 H 2.2 H* 1.8 H (0.5-1.6) mmol/L Hemoglobin 12.2 L 11.8 L 11.9 L (13.0-17.5) gm/dL Sodium (137-145) mmol/L Carbon Dioxide (22-30) mmol/L BUN (9-20) mg/dL Creatinine (0.66-1.25) mg/dL Glucose (74-99) mg/dL POC Glucose (mg/dL) (70-110) mg/dL AST (17-59) U/L ALT (4-49) U/L Total Protein (6.3-8.2) g/dL Albumin (3.5-5.0) g/dL Arterial Blood Potassium 4.9 H 4.8 H 4.7 H (3.4-4.5) mmol/L Arterial Blood Glucose 136 H 129 H 151 H (75-99) mg/dL 05/29/23 05/29/23 05/29/23 Range/Units 10:25 10:54 11:35 WBC (3.8-10.6) k/uL RBC (4.30-5.90) m/uL Hgb (13.0-17.5) gm/dL Hct (39.0-53.0) % Neutrophils # (1.3-7.7) k/uL ABG pH (7.35-7.45) ABG pO2 137 H 127 H 78 L (83-108) mmHg ABG HCO3 20 L 20 L 20 L (21-25) mmol/L ABG O2 Saturation 98.5 H 98.8 H (94-97) % ABG Potassium (3.4-4.5) mmol/L ABG Glucose 144 H 136 H 137 H (75-99) mg/dL ABG Lactic Acid 1.8 H (0.5-1.6) mmol/L Hemoglobin 11.9 L 11.7 L 11.0 L (13.0-17.5) gm/dL Sodium (137-145) mmol/L Carbon Dioxide (22-30) mmol/L BUN (9-20) mg/dL Creatinine (0.66-1.25) mg/dL Glucose (74-99) mg/dL POC Glucose (mg/dL) (70-110) mg/dL AST (17-59) U/L ALT (4-49) U/L Total Protein (6.3-8.2) g/dL Albumin (3.5-5.0) g/dL Arterial Blood Potassium (3.4-4.5) mmol/L Arterial Blood Glucose 144 H 136 H 137 H (75-99) mg/dL 05/30/23 05/30/23 05/30/23 Range/Units 09:06 10:29 11:58 WBC (3.8-10.6) k/uL RBC (4.30-5.90) m/uL Hgb (13.0-17.5) gm/dL Hct (39.0-53.0) % Neutrophils # (1.3-7.7) k/uL ABG pH (7.35-7.45) ABG pO2 (83-108) mmHg ABG HCO3 (21-25) mmol/L ABG O2 Saturation (94-97) % ABG Potassium (3.4-4.5) mmol/L ABG Glucose (75-99) mg/dL ABG Lactic Acid (0.5-1.6) mmol/L Hemoglobin (13.0-17.5) gm/dL Sodium (137-145) mmol/L Carbon Dioxide (22-30) mmol/L BUN (9-20) mg/dL Creatinine (0.66-1.25) mg/dL Glucose (74-99) mg/dL POC Glucose (mg/dL) 152 H 129 H 135 H (70-110) mg/dL AST (17-59) U/L ALT (4-49) U/L Total Protein (6.3-8.2) g/dL Albumin (3.5-5.0) g/dL Arterial Blood Potassium (3.4-4.5) mmol/L Arterial Blood Glucose (75-99) mg/dL 05/30/23 05/30/23 05/30/23 Range/Units 12:59 13:56 15:06 WBC (3.8-10.6) k/uL RBC (4.30-5.90) m/uL Hgb (13.0-17.5) gm/dL Hct (39.0-53.0) % Neutrophils # (1.3-7.7) k/uL ABG pH (7.35-7.45) ABG pO2 (83-108) mmHg ABG HCO3 (21-25) mmol/L ABG O2 Saturation (94-97) % ABG Potassium (3.4-4.5) mmol/L ABG Glucose (75-99) mg/dL ABG Lactic Acid (0.5-1.6) mmol/L Hemoglobin (13.0-17.5) gm/dL Sodium (137-145) mmol/L Carbon Dioxide (22-30) mmol/L BUN (9-20) mg/dL Creatinine (0.66-1.25) mg/dL Glucose (74-99) mg/dL POC Glucose (mg/dL) 134 H 152 H 167 H (70-110) mg/dL AST (17-59) U/L ALT (4-49) U/L Total Protein (6.3-8.2) g/dL Albumin (3.5-5.0) g/dL Arterial Blood Potassium (3.4-4.5) mmol/L Arterial Blood Glucose (75-99) mg/dL 05/30/23 05/30/23 05/30/23 Range/Units 15:59 16:54 18:10 WBC (3.8-10.6) k/uL RBC (4.30-5.90) m/uL Hgb (13.0-17.5) gm/dL Hct (39.0-53.0) % Neutrophils # (1.3-7.7) k/uL ABG pH (7.35-7.45) ABG pO2 (83-108) mmHg ABG HCO3 (21-25) mmol/L ABG O2 Saturation (94-97) % ABG Potassium (3.4-4.5) mmol/L ABG Glucose (75-99) mg/dL ABG Lactic Acid (0.5-1.6) mmol/L Hemoglobin (13.0-17.5) gm/dL Sodium (137-145) mmol/L Carbon Dioxide (22-30) mmol/L BUN (9-20) mg/dL Creatinine (0.66-1.25) mg/dL Glucose (74-99) mg/dL POC Glucose (mg/dL) 130 H 117 H 184 H (70-110) mg/dL AST (17-59) U/L ALT (4-49) U/L Total Protein (6.3-8.2) g/dL Albumin (3.5-5.0) g/dL Arterial Blood Potassium (3.4-4.5) mmol/L Arterial Blood Glucose (75-99) mg/dL 05/30/23 05/30/23 05/30/23 Range/Units 18:56 19:58 21:01 WBC (3.8-10.6) k/uL RBC (4.30-5.90) m/uL Hgb (13.0-17.5) gm/dL Hct (39.0-53.0) % Neutrophils # (1.3-7.7) k/uL ABG pH (7.35-7.45) ABG pO2 (83-108) mmHg ABG HCO3 (21-25) mmol/L ABG O2 Saturation (94-97) % ABG Potassium (3.4-4.5) mmol/L ABG Glucose (75-99) mg/dL ABG Lactic Acid (0.5-1.6) mmol/L Hemoglobin (13.0-17.5) gm/dL Sodium (137-145) mmol/L Carbon Dioxide (22-30) mmol/L BUN (9-20) mg/dL Creatinine (0.66-1.25) mg/dL Glucose (74-99) mg/dL POC Glucose (mg/dL) 164 H 146 H 190 H (70-110) mg/dL AST (17-59) U/L ALT (4-49) U/L Total Protein (6.3-8.2) g/dL Albumin (3.5-5.0) g/dL Arterial Blood Potassium (3.4-4.5) mmol/L Arterial Blood Glucose (75-99) mg/dL 05/30/23 05/30/23 05/30/23 Range/Units 21:54 23:01 23:57 WBC (3.8-10.6) k/uL RBC (4.30-5.90) m/uL Hgb (13.0-17.5) gm/dL Hct (39.0-53.0) % Neutrophils # (1.3-7.7) k/uL ABG pH (7.35-7.45) ABG pO2 (83-108) mmHg ABG HCO3 (21-25) mmol/L ABG O2 Saturation (94-97) % ABG Potassium (3.4-4.5) mmol/L ABG Glucose (75-99) mg/dL ABG Lactic Acid (0.5-1.6) mmol/L Hemoglobin (13.0-17.5) gm/dL Sodium (137-145) mmol/L Carbon Dioxide (22-30) mmol/L BUN (9-20) mg/dL Creatinine (0.66-1.25) mg/dL Glucose (74-99) mg/dL POC Glucose (mg/dL) 154 H 150 H 143 H (70-110) mg/dL AST (17-59) U/L ALT (4-49) U/L Total Protein (6.3-8.2) g/dL Albumin (3.5-5.0) g/dL Arterial Blood Potassium (3.4-4.5) mmol/L Arterial Blood Glucose (75-99) mg/dL 05/31/23 05/31/23 05/31/23 Range/Units 01:05 02:27 03:05 WBC (3.8-10.6) k/uL RBC (4.30-5.90) m/uL Hgb (13.0-17.5) gm/dL Hct (39.0-53.0) % Neutrophils # (1.3-7.7) k/uL ABG pH (7.35-7.45) ABG pO2 (83-108) mmHg ABG HCO3 (21-25) mmol/L ABG O2 Saturation (94-97) % ABG Potassium (3.4-4.5) mmol/L ABG Glucose (75-99) mg/dL ABG Lactic Acid (0.5-1.6) mmol/L Hemoglobin (13.0-17.5) gm/dL Sodium (137-145) mmol/L Carbon Dioxide (22-30) mmol/L BUN (9-20) mg/dL Creatinine (0.66-1.25) mg/dL Glucose (74-99) mg/dL POC Glucose (mg/dL) 134 H 159 H 169 H (70-110) mg/dL AST (17-59) U/L ALT (4-49) U/L Total Protein (6.3-8.2) g/dL Albumin (3.5-5.0) g/dL Arterial Blood Potassium (3.4-4.5) mmol/L Arterial Blood Glucose (75-99) mg/dL 05/31/23 05/31/23 05/31/23 Range/Units 03:55 04:02 04:02 WBC 11.7 H (3.8-10.6) k/uL RBC 3.47 L (4.30-5.90) m/uL Hgb 10.5 L (13.0-17.5) gm/dL Hct 32.9 L (39.0-53.0) % Neutrophils # 10.0 H (1.3-7.7) k/uL ABG pH (7.35-7.45) ABG pO2 (83-108) mmHg ABG HCO3 (21-25) mmol/L ABG O2 Saturation (94-97) % ABG Potassium (3.4-4.5) mmol/L ABG Glucose (75-99) mg/dL ABG Lactic Acid (0.5-1.6) mmol/L Hemoglobin (13.0-17.5) gm/dL Sodium 133 L (137-145) mmol/L Carbon Dioxide 19 L (22-30) mmol/L BUN 23 H (9-20) mg/dL Creatinine 1.58 H (0.66-1.25) mg/dL Glucose 145 H (74-99) mg/dL POC Glucose (mg/dL) 150 H (70-110) mg/dL AST 78 H (17-59) U/L ALT 62 H (4-49) U/L Total Protein 5.3 L (6.3-8.2) g/dL Albumin 3.0 L (3.5-5.0) g/dL Arterial Blood Potassium (3.4-4.5) mmol/L Arterial Blood Glucose (75-99) mg/dL 05/31/23 05/31/23 05/31/23 Range/Units 06:19 06:56 08:04 WBC (3.8-10.6) k/uL RBC (4.30-5.90) m/uL Hgb (13.0-17.5) gm/dL Hct (39.0-53.0) % Neutrophils # (1.3-7.7) k/uL ABG pH (7.35-7.45) ABG pO2 (83-108) mmHg ABG HCO3 (21-25) mmol/L ABG O2 Saturation (94-97) % ABG Potassium (3.4-4.5) mmol/L ABG Glucose (75-99) mg/dL ABG Lactic Acid (0.5-1.6) mmol/L Hemoglobin (13.0-17.5) gm/dL Sodium (137-145) mmol/L Carbon Dioxide (22-30) mmol/L BUN (9-20) mg/dL Creatinine (0.66-1.25) mg/dL Glucose (74-99) mg/dL POC Glucose (mg/dL) 130 H 118 H 168 H (70-110) mg/dL AST (17-59) U/L ALT (4-49) U/L Total Protein (6.3-8.2) g/dL Albumin (3.5-5.0) g/dL Arterial Blood Potassium (3.4-4.5) mmol/L Arterial Blood Glucose (75-99) mg/dL - Imaging and Cardiology Chest x-ray: report reviewed, image reviewed Assessment and Plan Assessment: Triple vessel coronary artery disease, status post three-vessel off-pump CABG Hypertension Hyperlipidemia, treated, cholesterol 142, LDL 58, triglycerides 211 Diabetes, preoperative hemoglobin A1c 7.5% TIA x 4, with residual left-sided weakness BPH, currently on Flomax Remote history of tobacco dependence quit smoking 50 years ago, preoperative FEV1 86% of predicted Peripheral neuropathy Colon cancer status post colon resection Family history of premature coronary artery disease, with his dad having coronary artery disease in his mid 50s Postoperative acute blood loss anemia, expected Postoperative paroxysmal atrial fibrillation, a known common occurrence after cardiac surgery Plan: Continue to maximize medical therapy with aspirin, statin, Plavix, and beta- jorge. Will increase metoprolol to tartrate to 25 mg p.o. 3 times daily with hold parameters. Continue amlodipine 5 mg p.o. daily for radial artery spasm prophylaxis. Continue amiodarone 400 mg p.o. twice daily for atrial fibrillation prophylaxis. Wean O2 as tolerated. Encourage incentive spirometry use 10 times every hour while awake. Bronchodilators per pulmonology Increase activity, ambulate as tolerated. PT/OT/cardiac rehab following. Will monitor daily labs and chest x-rays. Electrolyte replacement per protocol. Insulin management per internal medicine. Please continue IV insulin for 48 hours postsurgery, then may transition to subcutaneous per protocol. Preoperative hemoglobin A1c 7.5%. Pain control with current medication regimen. GI/DVT prophylaxis. Continue right IJ Cordis to continuous CVP monitoring. Continue right/left pleural chest tubes for another 24 hours, we will remove his mediastinal chest tube. Continue to monitor output. Remove Ceballos catheter, continue to record strict accurate intake and output. May bladder scan every 6 hours and as needed postvoid residuals. Daily weights. Continue home dose of Flomax. Albumin 25% 50 mL IV piggyback x 1 now. More recommendations to follow based on patient's clinical course. Time with Patient: Greater than 30
[2023-05-31 10:14] LABS: Glucose,Whole Blood 137 mg/dL (70-110)
--- NOTE | 2023-05-31 10:14 | P.PN ---
Subjective Progress Note Date: 05/31/23 Principal diagnosis: Coronary disease. 73-year-old male seen in the intensive care unit, room 260. He just came back from the operating room, having had an off-pump three-vessel bypass surgery, with Dr. Vang. The patient had a BOO to LAD bypass, left radial to obtuse marginal bypass, and SVG to PDA bypass. The patient is on the mechanical ventilator. Ventilator settings include volume assist-control, rate 18, tidal volume 400, FiO2 70%, PEEP of 5. Blood gases show pO2 147, pCO2 of 39, pH is 7.33. The patient's cardiac output is 5.5 with an index of 2.6. The patient is on insulin drip at 1 unit an hour, nitroglycerin at 5 mcg/min, lactated Ringer's at 50 cc an hour, propofol at 25 mcg/kg/min, and amiodarone at 1 mg/min. The patient has a history of hypertension, hyperlipidemia, TIA, with some residual left-sided weakness, diabetes mellitus, BPH, peripheral neuropathy, colon cancer status post colon resection, and a family history of cardiac disease. Current labs include a white count 11.2, hemoglobin 11.2, hematocrit 33.8, and a platelet count is 170,000. Sodium 139, potassium 4, chlorides 112, CO2 16, BUN 21, and creatinine 1.13. Glucose is 136. Albumin is 3.5. His x-ray shows some postsurgical changes, without anything acute. Endotracheal tube is 4 cm above the trav. Progress note dated May 30, 2023. This is a 73-year-old male who is postop day #1, status post off-pump three- vessel bypass surgery. The patient was seen yesterday in the ICU. Currently, he is on 4 L nasal cannula. He is getting lactated Ringer's at 50 cc an hour, a nd amiodarone at 0.5 mg/min. In addition, he is on an insulin drip at 5.5 units an hour. The patient sitting in a chair next to his bed. Laboratory data includes a white count 11.6, hemoglobin 11.9, hematocrit 36.2, and a normal platelet count. Sodium 137, potassium 4.1, chlorides 110, CO2 18, BUN 18, creatinine 1.16. Glucose is 125. AST is 88 and ALT is 123. Albumin is 3.2. Chest x-rays shows postsurgical changes. The endotracheal tube has been removed. Other lines appear to be in good position. Progress note dated May 31, 2023. 73-year-old male postop day #2, status post off-pump three-vessel bypass surgery. The patient is seen today in room 260. Currently, the patient is on 4 L of oxygen by nasal cannula. The patient is getting lactated Ringer's at 30 cc an hour. In addition, the patient is getting an insulin drip at 7 units an hour, and amiodarone at 0.5 mg/min, as he developed atrial fibrillation with RVR, last night. Current laboratory data includes a white count 11.7, hemoglobin 10.5, hematocrit 32.9, and a platelet count of 166,000. Sodium 133, potassium 4.4, chlorides 107, CO2 19, anion gap 7, BUN 23, creatinine 1.58. Glucose is 149. Albumin is 3. Chest x-ray shows typical postoperative changes, with some basilar atelectasis. Objective - Vital Signs Vital signs: Vital Signs Temp 97.8 F 05/31/23 08:00 Pulse 98 05/31/23 09:00 Resp 17 05/31/23 09:00 BP 126/62 05/31/23 09:00 Pulse Ox 92 L 05/31/23 09:00 FiO2 50 05/29/23 16:01 Intake & Output 05/30/23 05/31/23 05/31/23 18:59 06:59 18:59 Intake Total 1777.823 911.251 158.757 Output Total 515 640 145 Balance 1262.823 271.251 13.757 Weight 97.1 kg 97.6 kg Intake: IV 624.0 332 98 CO/CI 20 Lactated Ringers 1,000 ml 370 260 80 @ 20 mls/hr IV .Q24H [facility] Rx#:[id number] Magnesium Sulfate-D5w Pmx 100 1 gm In Dextrose/Water 1 100ml.bag @ 100 mls/hr IVPB Q1H [facility] Rx#: [id number] Nitroglycerin-D5w Pmx 50 3.0 mg In Dextrose/Water 1 250ml.bag @ 5 MCG/MIN 1.5 mls/hr IV .Q24H [facility] Rx#: [id number] ceFAZolin 2 gm In Sodium 50 Chloride 0.9% 50 ml @ 100 mls/hr IVPB Q8HR [facility] Rx# :[id number] pressure bag 81 72 18 Intake, IV Titration 53.823 79.251 60.757 Amount Albumin Human 25% 50 ml 50 In Empty Bag 1 bag @ 50 mls/hr IVPB ONCE ONE Rx#: [id number] Insulin Regular 100 unit 53.823 79.251 10.757 In Sodium Chloride 0.9% 100 ml @ Per Protocol IV .Q0M [facility] Rx#:[id number] Oral 850 500 Albumin 250 Albumin Human 5% 250 ml 250 In Empty Bag 1 bag @ 250 mls/hr IVPB Q1HR [facility] Rx#: [id number] Output: Chest Tube Drainage 190 270 30 Mediastinal 30 90 10 left and right 160 180 20 Urine 325 370 115 Other: Voiding Method Indwelling Catheter Indwelling Catheter ABP, PAP, CO, CI - Last Documented Arterial Blood Pressure 119/49 Pulmonary Artery Pressure 20/14 Cardiac Output 5.8 Cardiac Index 2.8 - Exam No acute distress, extubated, currently on nasal O2. HEENT examination is grossly unremarkable. Neck supple. Full range of motion. No adenopathy thyromegaly or neck vein distention. Cardiovascular examination reveals regular rhythm rate. S1-S2 normal. No S3 or S4. No discernible murmur noted. Heart rate 91 bpm. Lungs reveal clear breath sounds. Breath sounds are equal bilaterally. No adventitious lung sounds including wheezes rhonchi or crackles. Saturations are 96 %. Abdomen soft without bowel sounds. No masses. Extremities are intact. No cyanosis clubbing or edema. Skin is without rash or lesion. Neurologic examination is within normal range. - Labs CBC & Chem 7: 05/31/23 04:02 05/31/23 04:02 Labs: Abnormal Lab Results - Last 24 Hours (Table) 05/29/23 05/29/23 05/29/23 Range/Units 08:39 09:28 09:54 WBC (3.8-10.6) k/uL RBC (4.30-5.90) m/uL Hgb (13.0-17.5) gm/dL Hct (39.0-53.0) % Neutrophils # (1.3-7.7) k/uL ABG pH 7.32 L (7.35-7.45) ABG pO2 162 H 133 H 154 H (83-108) mmHg ABG HCO3 (21-25) mmol/L ABG O2 Saturation 99.0 H 98.3 H 98.9 H (94-97) % ABG Potassium 4.9 H 4.8 H 4.7 H (3.4-4.5) mmol/L ABG Glucose 136 H 129 H 151 H (75-99) mg/dL ABG Lactic Acid 1.7 H 2.2 H* 1.8 H (0.5-1.6) mmol/L Hemoglobin 12.2 L 11.8 L 11.9 L (13.0-17.5) gm/dL Sodium (137-145) mmol/L Carbon Dioxide (22-30) mmol/L BUN (9-20) mg/dL Creatinine (0.66-1.25) mg/dL Glucose (74-99) mg/dL POC Glucose (mg/dL) (70-110) mg/dL AST (17-59) U/L ALT (4-49) U/L Total Protein (6.3-8.2) g/dL Albumin (3.5-5.0) g/dL Arterial Blood Potassium 4.9 H 4.8 H 4.7 H (3.4-4.5) mmol/L Arterial Blood Glucose 136 H 129 H 151 H (75-99) mg/dL 05/29/23 05/29/23 05/29/23 Range/Units 10:25 10:54 11:35 WBC (3.8-10.6) k/uL RBC (4.30-5.90) m/uL Hgb (13.0-17.5) gm/dL Hct (39.0-53.0) % Neutrophils # (1.3-7.7) k/uL ABG pH (7.35-7.45) ABG pO2 137 H 127 H 78 L (83-108) mmHg ABG HCO3 20 L 20 L 20 L (21-25) mmol/L ABG O2 Saturation 98.5 H 98.8 H (94-97) % ABG Potassium (3.4-4.5) mmol/L ABG Glucose 144 H 136 H 137 H (75-99) mg/dL ABG Lactic Acid 1.8 H (0.5-1.6) mmol/L Hemoglobin 11.9 L 11.7 L 11.0 L (13.0-17.5) gm/dL Sodium (137-145) mmol/L Carbon Dioxide (22-30) mmol/L BUN (9-20) mg/dL Creatinine (0.66-1.25) mg/dL Glucose (74-99) mg/dL POC Glucose (mg/dL) (70-110) mg/dL AST (17-59) U/L ALT (4-49) U/L Total Protein (6.3-8.2) g/dL Albumin (3.5-5.0) g/dL Arterial Blood Potassium (3.4-4.5) mmol/L Arterial Blood Glucose 144 H 136 H 137 H (75-99) mg/dL 05/30/23 05/30/23 05/30/23 Range/Units 10:29 11:58 12:59 WBC (3.8-10.6) k/uL RBC (4.30-5.90) m/uL Hgb (13.0-17.5) gm/dL Hct (39.0-53.0) % Neutrophils # (1.3-7.7) k/uL ABG pH (7.35-7.45) ABG pO2 (83-108) mmHg ABG HCO3 (21-25) mmol/L ABG O2 Saturation (94-97) % ABG Potassium (3.4-4.5) mmol/L ABG Glucose (75-99) mg/dL ABG Lactic Acid (0.5-1.6) mmol/L Hemoglobin (13.0-17.5) gm/dL Sodium (137-145) mmol/L Carbon Dioxide (22-30) mmol/L BUN (9-20) mg/dL Creatinine (0.66-1.25) mg/dL Glucose (74-99) mg/dL POC Glucose (mg/dL) 129 H 135 H 134 H (70-110) mg/dL AST (17-59) U/L ALT (4-49) U/L Total Protein (6.3-8.2) g/dL Albumin (3.5-5.0) g/dL Arterial Blood Potassium (3.4-4.5) mmol/L Arterial Blood Glucose (75-99) mg/dL 05/30/23 05/30/23 05/30/23 Range/Units 13:56 15:06 15:59 WBC (3.8-10.6) k/uL RBC (4.30-5.90) m/uL Hgb (13.0-17.5) gm/dL Hct (39.0-53.0) % Neutrophils # (1.3-7.7) k/uL ABG pH (7.35-7.45) ABG pO2 (83-108) mmHg ABG HCO3 (21-25) mmol/L ABG O2 Saturation (94-97) % ABG Potassium (3.4-4.5) mmol/L ABG Glucose (75-99) mg/dL ABG Lactic Acid (0.5-1.6) mmol/L Hemoglobin (13.0-17.5) gm/dL Sodium (137-145) mmol/L Carbon Dioxide (22-30) mmol/L BUN (9-20) mg/dL Creatinine (0.66-1.25) mg/dL Glucose (74-99) mg/dL POC Glucose (mg/dL) 152 H 167 H 130 H (70-110) mg/dL AST (17-59) U/L ALT (4-49) U/L Total Protein (6.3-8.2) g/dL Albumin (3.5-5.0) g/dL Arterial Blood Potassium (3.4-4.5) mmol/L Arterial Blood Glucose (75-99) mg/dL 05/30/23 05/30/23 05/30/23 Range/Units 16:54 18:10 18:56 WBC (3.8-10.6) k/uL RBC (4.30-5.90) m/uL Hgb (13.0-17.5) gm/dL Hct (39.0-53.0) % Neutrophils # (1.3-7.7) k/uL ABG pH (7.35-7.45) ABG pO2 (83-108) mmHg ABG HCO3 (21-25) mmol/L ABG O2 Saturation (94-97) % ABG Potassium (3.4-4.5) mmol/L ABG Glucose (75-99) mg/dL ABG Lactic Acid (0.5-1.6) mmol/L Hemoglobin (13.0-17.5) gm/dL Sodium (137-145) mmol/L Carbon Dioxide (22-30) mmol/L BUN (9-20) mg/dL Creatinine (0.66-1.25) mg/dL Glucose (74-99) mg/dL POC Glucose (mg/dL) 117 H 184 H 164 H (70-110) mg/dL AST (17-59) U/L ALT (4-49) U/L Total Protein (6.3-8.2) g/dL Albumin (3.5-5.0) g/dL Arterial Blood Potassium (3.4-4.5) mmol/L Arterial Blood Glucose (75-99) mg/dL 05/30/23 05/30/23 05/30/23 Range/Units 19:58 21:01 21:54 WBC (3.8-10.6) k/uL RBC (4.30-5.90) m/uL Hgb (13.0-17.5) gm/dL Hct (39.0-53.0) % Neutrophils # (1.3-7.7) k/uL ABG pH (7.35-7.45) ABG pO2 (83-108) mmHg ABG HCO3 (21-25) mmol/L ABG O2 Saturation (94-97) % ABG Potassium (3.4-4.5) mmol/L ABG Glucose (75-99) mg/dL ABG Lactic Acid (0.5-1.6) mmol/L Hemoglobin (13.0-17.5) gm/dL Sodium (137-145) mmol/L Carbon Dioxide (22-30) mmol/L BUN (9-20) mg/dL Creatinine (0.66-1.25) mg/dL Glucose (74-99) mg/dL POC Glucose (mg/dL) 146 H 190 H 154 H (70-110) mg/dL AST (17-59) U/L ALT (4-49) U/L Total Protein (6.3-8.2) g/dL Albumin (3.5-5.0) g/dL Arterial Blood Potassium (3.4-4.5) mmol/L Arterial Blood Glucose (75-99) mg/dL 05/30/23 05/30/23 05/31/23 Range/Units 23:01 23:57 01:05 WBC (3.8-10.6) k/uL RBC (4.30-5.90) m/uL Hgb (13.0-17.5) gm/dL Hct (39.0-53.0) % Neutrophils # (1.3-7.7) k/uL ABG pH (7.35-7.45) ABG pO2 (83-108) mmHg ABG HCO3 (21-25) mmol/L ABG O2 Saturation (94-97) % ABG Potassium (3.4-4.5) mmol/L ABG Glucose (75-99) mg/dL ABG Lactic Acid (0.5-1.6) mmol/L Hemoglobin (13.0-17.5) gm/dL Sodium (137-145) mmol/L Carbon Dioxide (22-30) mmol/L BUN (9-20) mg/dL Creatinine (0.66-1.25) mg/dL Glucose (74-99) mg/dL POC Glucose (mg/dL) 150 H 143 H 134 H (70-110) mg/dL AST (17-59) U/L ALT (4-49) U/L Total Protein (6.3-8.2) g/dL Albumin (3.5-5.0) g/dL Arterial Blood Potassium (3.4-4.5) mmol/L Arterial Blood Glucose (75-99) mg/dL 05/31/23 05/31/23 05/31/23 Range/Units 02:27 03:05 03:55 WBC (3.8-10.6) k/uL RBC (4.30-5.90) m/uL Hgb (13.0-17.5) gm/dL Hct (39.0-53.0) % Neutrophils # (1.3-7.7) k/uL ABG pH (7.35-7.45) ABG pO2 (83-108) mmHg ABG HCO3 (21-25) mmol/L ABG O2 Saturation (94-97) % ABG Potassium (3.4-4.5) mmol/L ABG Glucose (75-99) mg/dL ABG Lactic Acid (0.5-1.6) mmol/L Hemoglobin (13.0-17.5) gm/dL Sodium (137-145) mmol/L Carbon Dioxide (22-30) mmol/L BUN (9-20) mg/dL Creatinine (0.66-1.25) mg/dL Glucose (74-99) mg/dL POC Glucose (mg/dL) 159 H 169 H 150 H (70-110) mg/dL AST (17-59) U/L ALT (4-49) U/L Total Protein (6.3-8.2) g/dL Albumin (3.5-5.0) g/dL Arterial Blood Potassium (3.4-4.5) mmol/L Arterial Blood Glucose (75-99) mg/dL 05/31/23 05/31/23 05/31/23 Range/Units 04:02 04:02 06:19 WBC 11.7 H (3.8-10.6) k/uL RBC 3.47 L (4.30-5.90) m/uL Hgb 10.5 L (13.0-17.5) gm/dL Hct 32.9 L (39.0-53.0) % Neutrophils # 10.0 H (1.3-7.7) k/uL ABG pH (7.35-7.45) ABG pO2 (83-108) mmHg ABG HCO3 (21-25) mmol/L ABG O2 Saturation (94-97) % ABG Potassium (3.4-4.5) mmol/L ABG Glucose (75-99) mg/dL ABG Lactic Acid (0.5-1.6) mmol/L Hemoglobin (13.0-17.5) gm/dL Sodium 133 L (137-145) mmol/L Carbon Dioxide 19 L (22-30) mmol/L BUN 23 H (9-20) mg/dL Creatinine 1.58 H (0.66-1.25) mg/dL Glucose 145 H (74-99) mg/dL POC Glucose (mg/dL) 130 H (70-110) mg/dL AST 78 H (17-59) U/L ALT 62 H (4-49) U/L Total Protein 5.3 L (6.3-8.2) g/dL Albumin 3.0 L (3.5-5.0) g/dL Arterial Blood Potassium (3.4-4.5) mmol/L Arterial Blood Glucose (75-99) mg/dL 05/31/23 05/31/23 05/31/23 Range/Units 06:56 08:04 09:07 WBC (3.8-10.6) k/uL RBC (4.30-5.90) m/uL Hgb (13.0-17.5) gm/dL Hct (39.0-53.0) % Neutrophils # (1.3-7.7) k/uL ABG pH (7.35-7.45) ABG pO2 (83-108) mmHg ABG HCO3 (21-25) mmol/L ABG O2 Saturation (94-97) % ABG Potassium (3.4-4.5) mmol/L ABG Glucose (75-99) mg/dL ABG Lactic Acid (0.5-1.6) mmol/L Hemoglobin (13.0-17.5) gm/dL Sodium (137-145) mmol/L Carbon Dioxide (22-30) mmol/L BUN (9-20) mg/dL Creatinine (0.66-1.25) mg/dL Glucose (74-99) mg/dL POC Glucose (mg/dL) 118 H 168 H 149 H (70-110) mg/dL AST (17-59) U/L ALT (4-49) U/L Total Protein (6.3-8.2) g/dL Albumin (3.5-5.0) g/dL Arterial Blood Potassium (3.4-4.5) mmol/L Arterial Blood Glucose (75-99) mg/dL Assessment and Plan Assessment: Postop day #2, status post off-pump three-vessel bypass surgery. Routine postoperative ventilator management, with successful extubation on May 29, 2023. History of hypertension. History of hyperlipidemia. History of type 2 diabetes mellitus. History of TIA x 4, with residual left-sided weakness. History of BPH. History of peripheral neuropathy. History of colon cancer, status post colon resection. Plan: Plan dated May 29, 2023. The patient is seen today in room 260. Labs, x-rays, and medications are reviewed. The patient's cardiac output is 5.5. The cardiac index is 2.6. Blood gases show pO2 of 147, pCO2 of 39, pH is 7.33, on 100% oxygen. The patient's FiO2 is turned down to 70%. The patient continues on insulin at 1 unit an hour, nitroglycerin at 5 mcg/min, lactated Ringer's at 50 cc an hour, propofol at 25 mcg/kg/min, and amiodarone at 1 mg/min. We will continue to follow, and make recommendations along the way. I suspect the patient will be relatively quick extubation. We will continue to follow. Plan dated May 30, 2023. The patient was extubated yesterday. He is postoperative day #1. Labs, x-rays, and medications are reviewed. Currently he is on oxygen at 4 L. He is getting lactated Ringer's at 50 cc an hour, amiodarone at 0.5 mg/min, and insulin drip at 5.5 units an hour. We will continue to follow the patient, make recommendations along the way. We encourage deep breathing, coughing, and german aring of secretions. We also recommended hourly use of the incentive spirometer. We will continue to follow. Prognosis is guarded. Plan dated May 31, 2023. The patient was extubated on the second. Last night, the patient developed atrial fibrillation with rapid ventricular response, and was started on amiodarone at 0.5 mg/min. The patient continues on lactated Ringer's at 30 cc an hour, as well as insulin drip at 7 units an hour. Labs, x-rays, and medications are reviewed. We will continue to follow the patient, make recommendations along the way. Prognosis is guarded. Time with Patient: Greater than 30
[2023-05-31 11:25] LABS: Glucose,Whole Blood 125 mg/dL (70-110)
[2023-05-31 11:57] LABS: Glucose,Whole Blood 118 mg/dL (70-110)
[2023-05-31 13:06] LABS: Glucose,Whole Blood 171 mg/dL (70-110)
--- NOTE | 2023-05-31 13:12 | P.PN ---
Subjective Progress Note Date: 05/31/23 Subjective: Patient seen and examined at bedside. Was in A-fib RVR, started on amiodarone drip. Ceballos catheter discontinued. Pertinent positives and negatives as discussed above, a complete review of systems was performed and all other systems are negative. Vitals Signs Reviewed. General: Nontoxic, no distress, appears at stated age Derm: Warm, dry, chest tubes in place. Dressing clean, dry, intact Head: Atraumatic, normocephalic, symmetric Eyes: EOMI, no lid lag, anicteric sclera Mouth: No lip lesion, mucus membranes moist Cardiovascular: S1S2 reg, no murmur Lungs: CTA bilateral, no rhonchi, no rales, no accessory muscle use Abdominal: Soft, nontender to palpation, no guarding, no appreciable organomegaly Ext: No gross muscle atrophy, no edema, no contractures Neuro: CN II-XI grossly intact, no focal neuro deficits Psych: Alert, oriented, appropriate affect Data Reviewed Today: Pertinent Labs: WBC 11.7, hemoglobin 10.5, sodium 133, bicarb 19, creatinine 1.58, blood sugars range between 1 18-1 71 Imaging: Chest x-ray independently interpreted, shows bilateral interstitial opacities reflective of postoperative changes EKG independently interpreted, shows atrial fibrillation with RVR. Assessment and Plan: 73-year-old male status post 4 vessel coronary artery bypass grafting Paroxysmal atrial fibrillation with RVR Transaminitis, resolving Coronary artery disease Hypertension Dyslipidemia On amiodarone drip -CT surgery note reviewed-continue Cordis, right/left pleural chest tubes, removing mediastinal chest tube, remove Ceballos, IV albumin x 1 -Pulmonary note reviewed: Continue current care, encourage incentive spirometer -Amiodarone 400 mg twice daily, aspirin 325 mg daily, Lipitor 40 mg daily, Plavix 75 mg daily, Lopressor 25 mg 3 times daily Acute blood loss anemia, anticipated outcome of surgery -No indication for transfusion at this time -Repeat CBC in a.m. Diabetes mellitus type 2 with neuropathy -Hemoglobin A1c 7.5 -Hold metformin, patient is not chronically on insulin -Insulin drip discontinued, Levemir 25 units daily, started on sliding scale insulin, monitor for hypoglycemia Chronic: History of CVA x 4 History of seizure disorder History of colon cancer in the past Thank you for allowing us to participate in the care of this pleasant patient. Do not hesitate to contact us with questions. Someone can be reached from the [facility] hospitalist group all hours of the day at [phone] or via perfect serve. Objective - Vital Signs Vital signs: Vital Signs Temp 97.8 F 05/31/23 08:00 Pulse 98 05/31/23 12:00 Resp 22 05/31/23 12:00 BP 120/76 05/31/23 12:00 Pulse Ox 91 L 05/31/23 12:00 FiO2 50 05/29/23 16:01 Intake & Output 05/30/23 05/31/23 05/31/23 18:59 06:59 18:59 Intake Total 1777.823 911.251 272.784 Output Total 515 640 145 Balance 1262.823 271.251 127.784 Weight 97.1 kg 97.6 kg Intake: IV 624.0 332 190 CO/CI 20 Lactated Ringers 1,000 ml 370 260 160 @ 20 mls/hr IV .Q24H [facility] Rx#:[id number] Magnesium Sulfate-D5w Pmx 100 1 gm In Dextrose/Water 1 100ml.bag @ 100 mls/hr IVPB Q1H [facility] Rx#: [id number] Nitroglycerin-D5w Pmx 50 3.0 mg In Dextrose/Water 1 250ml.bag @ 5 MCG/MIN 1.5 mls/hr IV .Q24H [facility] Rx#: [id number] ceFAZolin 2 gm In Sodium 50 Chloride 0.9% 50 ml @ 100 mls/hr IVPB Q8HR [facility] Rx# :[id number] pressure bag 81 72 30 Intake, IV Titration 53.823 79.251 82.784 Amount Albumin Human 25% 50 ml 50 In Empty Bag 1 bag @ 50 mls/hr IVPB ONCE ONE Rx#: [id number] Insulin Regular 100 unit 53.823 79.251 32.784 In Sodium Chloride 0.9% 100 ml @ Per Protocol IV .Q0M [facility] Rx#:[id number] Oral 850 500 Albumin 250 Albumin Human 5% 250 ml 250 In Empty Bag 1 bag @ 250 mls/hr IVPB Q1HR [facility] Rx#: [id number] Output: Chest Tube Drainage 190 270 30 Mediastinal 30 90 10 left and right 160 180 20 Urine 325 370 115 Other: Voiding Method Indwelling Catheter Indwelling Catheter ABP, PAP, CO, CI - Last Documented Arterial Blood Pressure 107/53 Pulmonary Artery Pressure 20/14 Cardiac Output 5.8 Cardiac Index 2.8 - Labs CBC & Chem 7: 05/31/23 04:02 05/31/23 04:02 Labs: Abnormal Lab Results - Last 24 Hours (Table) 05/29/23 05/29/23 05/29/23 Range/Units 08:39 09:28 09:54 WBC (3.8-10.6) k/uL RBC (4.30-5.90) m/uL Hgb (13.0-17.5) gm/dL Hct (39.0-53.0) % Neutrophils # (1.3-7.7) k/uL ABG pH 7.32 L (7.35-7.45) ABG pO2 162 H 133 H 154 H (83-108) mmHg ABG HCO3 (21-25) mmol/L ABG O2 Saturation 99.0 H 98.3 H 98.9 H (94-97) % ABG Potassium 4.9 H 4.8 H 4.7 H (3.4-4.5) mmol/L ABG Glucose 136 H 129 H 151 H (75-99) mg/dL ABG Lactic Acid 1.7 H 2.2 H* 1.8 H (0.5-1.6) mmol/L Hemoglobin 12.2 L 11.8 L 11.9 L (13.0-17.5) gm/dL Sodium (137-145) mmol/L Carbon Dioxide (22-30) mmol/L BUN (9-20) mg/dL Creatinine (0.66-1.25) mg/dL Glucose (74-99) mg/dL POC Glucose (mg/dL) (70-110) mg/dL AST (17-59) U/L ALT (4-49) U/L Total Protein (6.3-8.2) g/dL Albumin (3.5-5.0) g/dL Arterial Blood Potassium 4.9 H 4.8 H 4.7 H (3.4-4.5) mmol/L Arterial Blood Glucose 136 H 129 H 151 H (75-99) mg/dL 05/29/23 05/29/23 05/29/23 Range/Units 10:25 10:54 11:35 WBC (3.8-10.6) k/uL RBC (4.30-5.90) m/uL Hgb (13.0-17.5) gm/dL Hct (39.0-53.0) % Neutrophils # (1.3-7.7) k/uL ABG pH (7.35-7.45) ABG pO2 137 H 127 H 78 L (83-108) mmHg ABG HCO3 20 L 20 L 20 L (21-25) mmol/L ABG O2 Saturation 98.5 H 98.8 H (94-97) % ABG Potassium (3.4-4.5) mmol/L ABG Glucose 144 H 136 H 137 H (75-99) mg/dL ABG Lactic Acid 1.8 H (0.5-1.6) mmol/L Hemoglobin 11.9 L 11.7 L 11.0 L (13.0-17.5) gm/dL Sodium (137-145) mmol/L Carbon Dioxide (22-30) mmol/L BUN (9-20) mg/dL Creatinine (0.66-1.25) mg/dL Glucose (74-99) mg/dL POC Glucose (mg/dL) (70-110) mg/dL AST (17-59) U/L ALT (4-49) U/L Total Protein (6.3-8.2) g/dL Albumin (3.5-5.0) g/dL Arterial Blood Potassium (3.4-4.5) mmol/L Arterial Blood Glucose 144 H 136 H 137 H (75-99) mg/dL 05/30/23 05/30/23 05/30/23 Range/Units 13:56 15:06 15:59 WBC (3.8-10.6) k/uL RBC (4.30-5.90) m/uL Hgb (13.0-17.5) gm/dL Hct (39.0-53.0) % Neutrophils # (1.3-7.7) k/uL ABG pH (7.35-7.45) ABG pO2 (83-108) mmHg ABG HCO3 (21-25) mmol/L ABG O2 Saturation (94-97) % ABG Potassium (3.4-4.5) mmol/L ABG Glucose (75-99) mg/dL ABG Lactic Acid (0.5-1.6) mmol/L Hemoglobin (13.0-17.5) gm/dL Sodium (137-145) mmol/L Carbon Dioxide (22-30) mmol/L BUN (9-20) mg/dL Creatinine (0.66-1.25) mg/dL Glucose (74-99) mg/dL POC Glucose (mg/dL) 152 H 167 H 130 H (70-110) mg/dL AST (17-59) U/L ALT (4-49) U/L Total Protein (6.3-8.2) g/dL Albumin (3.5-5.0) g/dL Arterial Blood Potassium (3.4-4.5) mmol/L Arterial Blood Glucose (75-99) mg/dL 05/30/23 05/30/23 05/30/23 Range/Units 16:54 18:10 18:56 WBC (3.8-10.6) k/uL RBC (4.30-5.90) m/uL Hgb (13.0-17.5) gm/dL Hct (39.0-53.0) % Neutrophils # (1.3-7.7) k/uL ABG pH (7.35-7.45) ABG pO2 (83-108) mmHg ABG HCO3 (21-25) mmol/L ABG O2 Saturation (94-97) % ABG Potassium (3.4-4.5) mmol/L ABG Glucose (75-99) mg/dL ABG Lactic Acid (0.5-1.6) mmol/L Hemoglobin (13.0-17.5) gm/dL Sodium (137-145) mmol/L Carbon Dioxide (22-30) mmol/L BUN (9-20) mg/dL Creatinine (0.66-1.25) mg/dL Glucose (74-99) mg/dL POC Glucose (mg/dL) 117 H 184 H 164 H (70-110) mg/dL AST (17-59) U/L ALT (4-49) U/L Total Protein (6.3-8.2) g/dL Albumin (3.5-5.0) g/dL Arterial Blood Potassium (3.4-4.5) mmol/L Arterial Blood Glucose (75-99) mg/dL 05/30/23 05/30/23 05/30/23 Range/Units 19:58 21:01 21:54 WBC (3.8-10.6) k/uL RBC (4.30-5.90) m/uL Hgb (13.0-17.5) gm/dL Hct (39.0-53.0) % Neutrophils # (1.3-7.7) k/uL ABG pH (7.35-7.45) ABG pO2 (83-108) mmHg ABG HCO3 (21-25) mmol/L ABG O2 Saturation (94-97) % ABG Potassium (3.4-4.5) mmol/L ABG Glucose (75-99) mg/dL ABG Lactic Acid (0.5-1.6) mmol/L Hemoglobin (13.0-17.5) gm/dL Sodium (137-145) mmol/L Carbon Dioxide (22-30) mmol/L BUN (9-20) mg/dL Creatinine (0.66-1.25) mg/dL Glucose (74-99) mg/dL POC Glucose (mg/dL) 146 H 190 H 154 H (70-110) mg/dL AST (17-59) U/L ALT (4-49) U/L Total Protein (6.3-8.2) g/dL Albumin (3.5-5.0) g/dL Arterial Blood Potassium (3.4-4.5) mmol/L Arterial Blood Glucose (75-99) mg/dL 05/30/23 05/30/23 05/31/23 Range/Units 23:01 23:57 01:05 WBC (3.8-10.6) k/uL RBC (4.30-5.90) m/uL Hgb (13.0-17.5) gm/dL Hct (39.0-53.0) % Neutrophils # (1.3-7.7) k/uL ABG pH (7.35-7.45) ABG pO2 (83-108) mmHg ABG HCO3 (21-25) mmol/L ABG O2 Saturation (94-97) % ABG Potassium (3.4-4.5) mmol/L ABG Glucose (75-99) mg/dL ABG Lactic Acid (0.5-1.6) mmol/L Hemoglobin (13.0-17.5) gm/dL Sodium (137-145) mmol/L Carbon Dioxide (22-30) mmol/L BUN (9-20) mg/dL Creatinine (0.66-1.25) mg/dL Glucose (74-99) mg/dL POC Glucose (mg/dL) 150 H 143 H 134 H (70-110) mg/dL AST (17-59) U/L ALT (4-49) U/L Total Protein (6.3-8.2) g/dL Albumin (3.5-5.0) g/dL Arterial Blood Potassium (3.4-4.5) mmol/L Arterial Blood Glucose (75-99) mg/dL 05/31/23 05/31/23 05/31/23 Range/Units 02:27 03:05 03:55 WBC (3.8-10.6) k/uL RBC (4.30-5.90) m/uL Hgb (13.0-17.5) gm/dL Hct (39.0-53.0) % Neutrophils # (1.3-7.7) k/uL ABG pH (7.35-7.45) ABG pO2 (83-108) mmHg ABG HCO3 (21-25) mmol/L ABG O2 Saturation (94-97) % ABG Potassium (3.4-4.5) mmol/L ABG Glucose (75-99) mg/dL ABG Lactic Acid (0.5-1.6) mmol/L Hemoglobin (13.0-17.5) gm/dL Sodium (137-145) mmol/L Carbon Dioxide (22-30) mmol/L BUN (9-20) mg/dL Creatinine (0.66-1.25) mg/dL Glucose (74-99) mg/dL POC Glucose (mg/dL) 159 H 169 H 150 H (70-110) mg/dL AST (17-59) U/L ALT (4-49) U/L Total Protein (6.3-8.2) g/dL Albumin (3.5-5.0) g/dL Arterial Blood Potassium (3.4-4.5) mmol/L Arterial Blood Glucose (75-99) mg/dL 05/31/23 05/31/23 05/31/23 Range/Units 04:02 04:02 06:19 WBC 11.7 H (3.8-10.6) k/uL RBC 3.47 L (4.30-5.90) m/uL Hgb 10.5 L (13.0-17.5) gm/dL Hct 32.9 L (39.0-53.0) % Neutrophils # 10.0 H (1.3-7.7) k/uL ABG pH (7.35-7.45) ABG pO2 (83-108) mmHg ABG HCO3 (21-25) mmol/L ABG O2 Saturation (94-97) % ABG Potassium (3.4-4.5) mmol/L ABG Glucose (75-99) mg/dL ABG Lactic Acid (0.5-1.6) mmol/L Hemoglobin (13.0-17.5) gm/dL Sodium 133 L (137-145) mmol/L Carbon Dioxide 19 L (22-30) mmol/L BUN 23 H (9-20) mg/dL Creatinine 1.58 H (0.66-1.25) mg/dL Glucose 145 H (74-99) mg/dL POC Glucose (mg/dL) 130 H (70-110) mg/dL AST 78 H (17-59) U/L ALT 62 H (4-49) U/L Total Protein 5.3 L (6.3-8.2) g/dL Albumin 3.0 L (3.5-5.0) g/dL Arterial Blood Potassium (3.4-4.5) mmol/L Arterial Blood Glucose (75-99) mg/dL 05/31/23 05/31/23 05/31/23 Range/Units 06:56 08:04 09:07 WBC (3.8-10.6) k/uL RBC (4.30-5.90) m/uL Hgb (13.0-17.5) gm/dL Hct (39.0-53.0) % Neutrophils # (1.3-7.7) k/uL ABG pH (7.35-7.45) ABG pO2 (83-108) mmHg ABG HCO3 (21-25) mmol/L ABG O2 Saturation (94-97) % ABG Potassium (3.4-4.5) mmol/L ABG Glucose (75-99) mg/dL ABG Lactic Acid (0.5-1.6) mmol/L Hemoglobin (13.0-17.5) gm/dL Sodium (137-145) mmol/L Carbon Dioxide (22-30) mmol/L BUN (9-20) mg/dL Creatinine (0.66-1.25) mg/dL Glucose (74-99) mg/dL POC Glucose (mg/dL) 118 H 168 H 149 H (70-110) mg/dL AST (17-59) U/L ALT (4-49) U/L Total Protein (6.3-8.2) g/dL Albumin (3.5-5.0) g/dL Arterial Blood Potassium (3.4-4.5) mmol/L Arterial Blood Glucose (75-99) mg/dL 05/31/23 05/31/23 05/31/23 Range/Units 10:13 11:23 11:56 WBC (3.8-10.6) k/uL RBC (4.30-5.90) m/uL Hgb (13.0-17.5) gm/dL Hct (39.0-53.0) % Neutrophils # (1.3-7.7) k/uL ABG pH (7.35-7.45) ABG pO2 (83-108) mmHg ABG HCO3 (21-25) mmol/L ABG O2 Saturation (94-97) % ABG Potassium (3.4-4.5) mmol/L ABG Glucose (75-99) mg/dL ABG Lactic Acid (0.5-1.6) mmol/L Hemoglobin (13.0-17.5) gm/dL Sodium (137-145) mmol/L Carbon Dioxide (22-30) mmol/L BUN (9-20) mg/dL Creatinine (0.66-1.25) mg/dL Glucose (74-99) mg/dL POC Glucose (mg/dL) 137 H 125 H 118 H (70-110) mg/dL AST (17-59) U/L ALT (4-49) U/L Total Protein (6.3-8.2) g/dL Albumin (3.5-5.0) g/dL Arterial Blood Potassium (3.4-4.5) mmol/L Arterial Blood Glucose (75-99) mg/dL 05/31/23 Range/Units 13:04 WBC (3.8-10.6) k/uL RBC (4.30-5.90) m/uL Hgb (13.0-17.5) gm/dL Hct (39.0-53.0) % Neutrophils # (1.3-7.7) k/uL ABG pH (7.35-7.45) ABG pO2 (83-108) mmHg ABG HCO3 (21-25) mmol/L ABG O2 Saturation (94-97) % ABG Potassium (3.4-4.5) mmol/L ABG Glucose (75-99) mg/dL ABG Lactic Acid (0.5-1.6) mmol/L Hemoglobin (13.0-17.5) gm/dL Sodium (137-145) mmol/L Carbon Dioxide (22-30) mmol/L BUN (9-20) mg/dL Creatinine (0.66-1.25) mg/dL Glucose (74-99) mg/dL POC Glucose (mg/dL) 171 H (70-110) mg/dL AST (17-59) U/L ALT (4-49) U/L Total Protein (6.3-8.2) g/dL Albumin (3.5-5.0) g/dL Arterial Blood Potassium (3.4-4.5) mmol/L Arterial Blood Glucose (75-99) mg/dL
[2023-05-31] MEDS: INSULIN DETEMIR (LEVEMIR) 100 UNIT/ML SYR SQ ONE (13:52)
[2023-05-31 13:56] LABS: Glucose,Whole Blood 214 mg/dL (70-110)
--- NOTE | 2023-05-31 14:18 | PN ---
PROGRESS NOTE SUBJECTIVE: This is a 73-year-old gentleman who is status post bypass surgery postop day #2. He went into atrial fibrillation and was started on amiodarone drip followed by oral amiodarone this morning. OBJECTIVE: VITAL SIGNS: Heart rate is around 100 beats per minute, blood pressure is 126/62, respiratory rate is 18. CHEST: Reveals good air entry bilaterally. HEART: Reveals first and second heart sounds. Irregular rhythm. No murmur. ABDOMEN: Soft. EXTREMITIES: Revealed mild edema. Peripheral pulses are felt. LABORATORY DATA: Labs show the potassium is 4.4, creatinine is 1.5. AST and ALT are coming down at 78 and 62. ASSESSMENT AND PLAN: 1. CAD, status post CABG postop day #2. 2. Postoperative atrial fibrillation. 3. Elevated liver enzymes. Liver enzymes are improving compared to yesterday. The patient will continue on aspirin, Norvasc, and metoprolol that he is on. MMODL / IJN: [id number] /
[2023-05-31 14:52] LABS: Glucose,Whole Blood 161 mg/dL (70-110)
[2023-05-31 15:50] LABS: Glucose,Whole Blood 152 mg/dL (70-110)
[2023-05-31 17:05] LABS: Glucose,Whole Blood 122 mg/dL (70-110)
[2023-05-31] MEDS: INSULIN ASPART (NovoLOG) 100 UNIT/ML VIAL SQ SCH (17:55)
[2023-05-31 20:49] LABS: Glucose,Whole Blood 227 mg/dL (70-110)
[2023-05-31] MEDS: ACETAMINOPHEN TAB 500 MG TAB PO PRN (20:58)
[2023-06-01 05:54] LABS: Basophils % (A) 0 %; Eosinophils # (A) 0.1 k/uL (0-0.7); Eosinophils % (A) 1 %; HCT 32.3 % (39.0-53.0); HGB 10.5 gm/dL (13.0-17.5); Lymphocytes # (A) 0.9 k/uL (1.0-4.8); Lymphocytes % (A) 8 %; MCH 31.2 pg (25.0-35.0); MCHC 32.4 g/dL (31.0-37.0); MCV 96.2 fL (80.0-100.0); Monocytes # (A) 0.6 k/uL (0-1.0); Monocytes % (A) 5 %; Neutrophils # (A) 9.1 k/uL (1.3-7.7); Neutrophils % (A) 84 %; Platelet Count 200 k/uL (150-450); RBC 3.36 m/uL (4.30-5.90); RDW 13.2 % (11.5-15.5); WBC 10.9 k/uL (3.8-10.6)
[2023-06-01 06:06] LABS: ALT 41 U/L (4-49); AST 77 U/L (17-59); African American GFR (CKD) 43 (>60 ml/min/1.73 sqM); Albumin 3.3 g/dL (3.5-5.0); Alkaline Phosphatase 61 U/L (38-126); Anion Gap 12 mmol/L; Blood Urea Nitrogen 29 mg/dL (9-20); Calcium 8.8 mg/dL (8.4-10.2); Carbon Dioxide 15 mmol/L (22-30); Chloride 105 mmol/L (98-107); Glucose 153 mg/dL (74-99); Non-African American GFR(CKD) 37 (>60 ml/min/1.73 sqM); Sodium 132 mmol/L (137-145); Total Bilirubin 0.6 mg/dL (0.2-1.3); Total Protein 5.8 g/dL (6.3-8.2)
[2023-06-01 06:56] LABS: Glucose,Whole Blood 170 mg/dL (70-110)
[2023-06-01] MEDS: INSULIN DETEMIR (LEVEMIR) 100 UNIT/ML SYR SQ SCH (07:00)
--- NOTE | 2023-06-01 08:27 | XR ---
EXAMINATION TYPE: XR chest 1V portable DATE OF EXAM: 06/01/2023 5:33 AM CLINICAL INDICATION:Male, 73 years old with history of Postop CABG; [facility] COMPARISON: Chest radiograph from one day prior. TECHNIQUE: XR chest 1V portable Frontal view of the chest. FINDINGS: Lungs/Pleura: Left midlung streaky atelectasis. There is no evidence of pleural effusion, focal conso lidation, or pneumothorax. Pulmonary vascularity: Unremarkable. Heart/mediastinum: Cardiomediastinal silhouette is unremarkable. Left atrial appendage occlusion kurt ce is present. Musculoskeletal: No acute osseous pathology. Midline sternotomy wires are noted. Other findings: None Lines/Tubes: There is a [place] catheter sheath has been removed. Drainage tubes have been removed. Bilateral thoracotomy tubes have been removed. IMPRESSION: Stable exam, removal of prior tubes. Left midlung streaky atelectasis.
--- NOTE | 2023-06-01 08:40 | P.PN ---
Subjective Progress Note Date: 06/01/23 Principal diagnosis: Triple vessel coronary artery disease. Previous history of pretension, hyperlipidemia, diabetes, TIA, BPH, previous tobacco dependence, peripheral neuropathy, colon cancer status post colon resection. Family history of premature coronary artery disease POD #3 off pump coronary artery bypass grafting x 3, left internal thoracic artery (in-situ) to left anterior descending coronary artery, radial artery from aorta to obtuse marginal artery, saphenous vein from aorta to posterior descending coronary artery, left atrial appendage ligation using #35mm AtriClip, endoscopic left radial and right greater saphenous vein harvest, graft flow measurements using the medi-stim flow meter system, trans-esophageal echo Postoperative acute blood loss anemia, expected given hemodilution Paroxysmal atrial fibrillation, known common occurrence after open heart s urgery, not a complication The patient was seen and examined with Dr. Vang sitting up in recliner in the intensive care unit in no acute distress. Currently in atrial fibrillation, hemodynamically stable on no inotropes or pressors. Does complain of postsurgical pain with deep inspiration and coughing, denies shortness of breath. Remains on 3 L nasal cannula with oxygen saturation in the high 90s. Chest x-ray, labs reviewed. Patient has been able to ambulate with minimal assistance. No other new concerns. Objective - Vital Signs Vital signs: Vital Signs Temp 98.0 F 06/01/23 04:00 Pulse 118 H 06/01/23 07:59 Resp 30 H 06/01/23 07:00 BP 113/71 06/01/23 07:00 Pulse Ox 93 L 06/01/23 07:00 FiO2 50 05/29/23 16:01 Intake & Output 05/31/23 06/01/23 06/01/23 18:59 06:59 18:59 Intake Total 356.335 700 Output Total 380 750 Balance -23.665 -50 Weight 98.2 kg Intake: IV 260 0 Lactated Ringers 1,000 ml 230 0 @ 20 mls/hr IV .Q24H [facility] Rx#:[id number] pressure bag 30 Intake, IV Titration 96.335 Amount Albumin Human 25% 50 ml 50 In Empty Bag 1 bag @ 50 mls/hr IVPB ONCE ONE Rx#: [id number] Insulin Regular 100 unit 46.335 In Sodium Chloride 0.9% 100 ml @ Per Protocol IV .Q0M [facility] Rx#:[id number] Oral 700 Output: Chest Tube Drainage 100 Mediastinal 10 left and right 90 Urine 165 500 Post Void Residual 115 Urine/Stool Mix 250 Other: Voiding Method Indwelling Catheter # Bowel Movements 1 ABP, PAP, CO, CI - Last Documented Arterial Blood Pressure 107/53 Pulmonary Artery Pressure 20/14 Cardiac Output 5.8 Cardiac Index 2.8 - Exam CONSTITUTIONAL: Appears comfortable, cooperative, no acute distress RESPIRATORY: Lungs sounds diminished bilaterally. Respirations even, nonlabored. Currently on 3 LPM nasal cannula with oxygen saturation 98%. Able to achieve 750 mL on incentive spirometry. Strong cough. CARDIOVASCULAR: S1, S2 present. Irregular rate and rhythm, atrial fibrillation on telemetry. Sternum stable. Palpable peripheral pulses bilaterally. No edema present. No calf pain or tenderness noted. Heart hugger in place with patient demonstrating appropriate use. Antiembolism stockings, SCDs present. GASTROINTESTINAL: Abdomen soft, nontender, nondistended. Active bowel sounds present 4 quadrants. Tolerating diet. Positive bowel movement this morning GENITOURINARY: Continues to void INTEGUMENTARY: Skin is warm and dry with evidence of good perfusion. Anterior chest incision well approximated and covered with dry intact dressing. Left radial artery harvest site as well as right lower extremity EVH site well approximated without redness or drainage. NEUROLOGIC: Cranial nerves II through XII intact MUSKULOSKELETAL: Able to move all extremities, strength equal bilaterally PSYCHIATRIC: Alert and oriented to person place and time, appropriate affect, intact judgment and insight INVASIVE LINES AND TUBES: Ventricular epicardial pacemaker wires present, grounded - Allied health notes Allied health notes reviewed: nursing - Labs CBC & Chem 7: 06/01/23 05:33 06/01/23 05:33 Labs: Abnormal Lab Results - Last 24 Hours (Table) 05/31/23 05/31/23 05/31/23 Range/Units 09:07 10:13 11:23 WBC (3.8-10.6) k/uL RBC (4.30-5.90) m/uL Hgb (13.0-17.5) gm/dL Hct (39.0-53.0) % Neutrophils # (1.3-7.7) k/uL Lymphocytes # (1.0-4.8) k/uL Sodium (137-145) mmol/L Carbon Dioxide (22-30) mmol/L BUN (9-20) mg/dL Creatinine (0.66-1.25) mg/dL Glucose (74-99) mg/dL POC Glucose (mg/dL) 149 H 137 H 125 H (70-110) mg/dL AST (17-59) U/L Total Protein (6.3-8.2) g/dL Albumin (3.5-5.0) g/dL 05/31/23 05/31/23 05/31/23 Range/Units 11:56 13:04 13:54 WBC (3.8-10.6) k/uL RBC (4.30-5.90) m/uL Hgb (13.0-17.5) gm/dL Hct (39.0-53.0) % Neutrophils # (1.3-7.7) k/uL Lymphocytes # (1.0-4.8) k/uL Sodium (137-145) mmol/L Carbon Dioxide (22-30) mmol/L BUN (9-20) mg/dL Creatinine (0.66-1.25) mg/dL Glucose (74-99) mg/dL POC Glucose (mg/dL) 118 H 171 H 214 H (70-110) mg/dL AST (17-59) U/L Total Protein (6.3-8.2) g/dL Albumin (3.5-5.0) g/dL 05/31/23 05/31/23 05/31/23 Range/Units 14:50 15:48 17:04 WBC (3.8-10.6) k/uL RBC (4.30-5.90) m/uL Hgb (13.0-17.5) gm/dL Hct (39.0-53.0) % Neutrophils # (1.3-7.7) k/uL Lymphocytes # (1.0-4.8) k/uL Sodium (137-145) mmol/L Carbon Dioxide (22-30) mmol/L BUN (9-20) mg/dL Creatinine (0.66-1.25) mg/dL Glucose (74-99) mg/dL POC Glucose (mg/dL) 161 H 152 H 122 H (70-110) mg/dL AST (17-59) U/L Total Protein (6.3-8.2) g/dL Albumin (3.5-5.0) g/dL 05/31/23 06/01/23 06/01/23 Range/Units 20:47 05:33 05:33 WBC 10.9 H (3.8-10.6) k/uL RBC 3.36 L (4.30-5.90) m/uL Hgb 10.5 L (13.0-17.5) gm/dL Hct 32.3 L (39.0-53.0) % Neutrophils # 9.1 H (1.3-7.7) k/uL Lymphocytes # 0.9 L (1.0-4.8) k/uL Sodium 132 L (137-145) mmol/L Carbon Dioxide 15 L (22-30) mmol/L BUN 29 H (9-20) mg/dL Creatinine 1.75 H (0.66-1.25) mg/dL Glucose 153 H (74-99) mg/dL POC Glucose (mg/dL) 227 H (70-110) mg/dL AST 77 H (17-59) U/L Total Protein 5.8 L (6.3-8.2) g/dL Albumin 3.3 L (3.5-5.0) g/dL 06/01/23 Range/Units 06:55 WBC (3.8-10.6) k/uL RBC (4.30-5.90) m/uL Hgb (13.0-17.5) gm/dL Hct (39.0-53.0) % Neutrophils # (1.3-7.7) k/uL Lymphocytes # (1.0-4.8) k/uL Sodium (137-145) mmol/L Carbon Dioxide (22-30) mmol/L BUN (9-20) mg/dL Creatinine (0.66-1.25) mg/dL Glucose (74-99) mg/dL POC Glucose (mg/dL) 170 H (70-110) mg/dL AST (17-59) U/L Total Protein (6.3-8.2) g/dL Albumin (3.5-5.0) g/dL - Imaging and Cardiology Chest x-ray: report reviewed, image reviewed Assessment and Plan Assessment: Triple vessel coronary artery disease, status post three-vessel off-pump CABG Hypertension Hyperlipidemia, treated, cholesterol 142, LDL 58, triglycerides 211 Diabetes, preoperative hemoglobin A1c 7.5% TIA BPH, currently on Flomax Previous tobacco dependence, preoperative FEV1 86% of predicted Peripheral neuropathy Colon cancer status post colon resection Family history of premature coronary artery disease Postoperative acute blood loss anemia, expected Paroxysmal atrial fibrillation, status post left atrial appendage ligation Plan: Continue to maximize medical therapy with aspirin, statin, Plavix, beta-jorge. Will increase beta-jorge therapy as tolerated Continue low-dose amlodipine for radial artery spasm prophylaxis Continue amiodarone. No anticoagulation at this point Wean O2 as tolerated. Encourage incentive spirometry use 10 times every hour while awake. Bronchodilators per pulmonology Increase activity, ambulate as tolerated. PT/OT/cardiac rehab consulted Will monitor daily labs and x-rays. Electrolyte replacement per protocol Insulin management per internal medicine Pain control with current medication regimen GI/DVT prophylaxis Epicardial pacemaker wires discontinued. Patient to remain on bedrest for 1 hour post wire removal Daily weights Continue home dose of Flomax Will place transfer orders for 3 S. cardiac stepdown unit. May transfer when bed available More recommendations to follow
--- NOTE | 2023-06-01 10:29 | P.PN ---
Subjective Progress Note Date: 06/01/23 Principal diagnosis: Coronary disease. 73-year-old male seen in the intensive care unit, room 260. He just came back from the operating room, having had an off-pump three-vessel bypass surgery, with Dr. Vang. The patient had a BOO to LAD bypass, left radial to obtuse marginal bypass, and SVG to PDA bypass. The patient is on the mechanical ventilator. Ventilator settings include volume assist-control, rate 18, tidal volume 400, FiO2 70%, PEEP of 5. Blood gases show pO2 147, pCO2 of 39, pH is 7.33. The patient's cardiac output is 5.5 with an index of 2.6. The patient is on insulin drip at 1 unit an hour, nitroglycerin at 5 mcg/min, lactated Ringer's at 50 cc an hour, propofol at 25 mcg/kg/min, and amiodarone at 1 mg/min. The patient has a history of hypertension, hyperlipidemia, TIA, with some residual left-sided weakness, diabetes mellitus, BPH, peripheral neuropathy, colon cancer status post colon resection, and a family history of cardiac disease. Current labs include a white count 11.2, hemoglobin 11.2, hematocrit 33.8, and a platelet count is 170,000. Sodium 139, potassium 4, chlorides 112, CO2 16, BUN 21, and creatinine 1.13. Glucose is 136. Albumin is 3.5. His x-ray shows some postsurgical changes, without anything acute. Endotracheal tube is 4 cm above the trav. Progress note dated May 30, 2023. This is a 73-year-old male who is postop day #1, status post off-pump three- vessel bypass surgery. The patient was seen yesterday in the ICU. Currently, he is on 4 L nasal cannula. He is getting lactated Ringer's at 50 cc an hour, a nd amiodarone at 0.5 mg/min. In addition, he is on an insulin drip at 5.5 units an hour. The patient sitting in a chair next to his bed. Laboratory data includes a white count 11.6, hemoglobin 11.9, hematocrit 36.2, and a normal platelet count. Sodium 137, potassium 4.1, chlorides 110, CO2 18, BUN 18, creatinine 1.16. Glucose is 125. AST is 88 and ALT is 123. Albumin is 3.2. Chest x-rays shows postsurgical changes. The endotracheal tube has been removed. Other lines appear to be in good position. Progress note dated May 31, 2023. 73-year-old male postop day #2, status post off-pump three-vessel bypass surgery. The patient is seen today in room 260. Currently, the patient is on 4 L of oxygen by nasal cannula. The patient is getting lactated Ringer's at 30 cc an hour. In addition, the patient is getting an insulin drip at 7 units an hour, and amiodarone at 0.5 mg/min, as he developed atrial fibrillation with RVR, last night. Current laboratory data includes a white count 11.7, hemoglobin 10.5, hematocrit 32.9, and a platelet count of 166,000. Sodium 133, potassium 4.4, chlorides 107, CO2 19, anion gap 7, BUN 23, creatinine 1.58. Glucose is 149. Albumin is 3. Chest x-ray shows typical postoperative changes, with some basilar atelectasis. Progress note dated June 01, 2023. 73-year-old male who is postop day #3, status post off-pump three-vessel bypass surgery. The patient is seen in room 260. Currently, he is on 3 L of oxygen. He is not receiving any IV fluids. He is getting about 600 cc on his incentive spirometer. He has no specific complaints today. White count is 10.9, hemoglobin 10.5, hematocrit 32.3, with a normal platelet count. Sodium 132, potassium 4, chloride 105, CO2 15, anion gap 12, BUN 29, creatinine 1.75. Glucose is 170. Albumin is 3.3. Chest x-ray shows a stable examination, with some basilar atelectasis. Objective - Vital Signs Vital signs: Vital Signs Temp 98.2 F 06/01/23 08:00 Pulse 99 06/01/23 09:00 Resp 24 06/01/23 09:00 BP 125/64 06/01/23 09:00 Pulse Ox 94 L 06/01/23 09:00 FiO2 50 05/29/23 16:01 Intake & Output 05/31/23 06/01/23 06/01/23 18:59 06:59 18:59 Intake Total 356.335 700 250 Output Total 380 750 Balance -23.665 -50 250 Weight 98.2 kg Intake: IV 260 0 0 Lactated Ringers 1,000 ml 230 0 0 @ 20 mls/hr IV .Q24H [facility] Rx#:[id number] pressure bag 30 Intake, IV Titration 96.335 Amount Albumin Human 25% 50 ml 50 In Empty Bag 1 bag @ 50 mls/hr IVPB ONCE ONE Rx#: [id number] Insulin Regular 100 unit 46.335 In Sodium Chloride 0.9% 100 ml @ Per Protocol IV .Q0M [facility] Rx#:[id number] Oral 700 250 Output: Chest Tube Drainage 100 Mediastinal 10 left and right 90 Urine 165 500 Post Void Residual 115 Urine/Stool Mix 250 Other: Voiding Method Indwelling Catheter # Bowel Movements 1 ABP, PAP, CO, CI - Last Documented Arterial Blood Pressure 107/53 Pulmonary Artery Pressure 20/14 Cardiac Output 5.8 Cardiac Index 2.8 - Exam No acute distress, extubated, currently on nasal O2, 3 L. HEENT examination is grossly unremarkable. Neck supple. Full range of motion. No adenopathy thyromegaly or neck vein distention. Cardiovascular examination reveals regular rhythm rate. S1-S2 normal. No S3 or S4. No discernible murmur noted. Heart rate 99 bpm. Lungs reveal clear breath sounds. Breath sounds are equal bilaterally. No adventitious lung sounds including wheezes rhonchi or crackles. Saturations are 94 %. Abdomen soft without bowel sounds. No masses. Extremities are intact. No cyanosis clubbing or edema. Skin is without rash or lesion. Neurologic examination is within normal range. - Labs CBC & Chem 7: 06/01/23 05:33 06/01/23 05:33 Labs: Abnormal Lab Results - Last 24 Hours (Table) 05/31/23 05/31/23 05/31/23 Range/Units 11:23 11:56 13:04 WBC (3.8-10.6) k/uL RBC (4.30-5.90) m/uL Hgb (13.0-17.5) gm/dL Hct (39.0-53.0) % Neutrophils # (1.3-7.7) k/uL Lymphocytes # (1.0-4.8) k/uL Sodium (137-145) mmol/L Carbon Dioxide (22-30) mmol/L BUN (9-20) mg/dL Creatinine (0.66-1.25) mg/dL Glucose (74-99) mg/dL POC Glucose (mg/dL) 125 H 118 H 171 H (70-110) mg/dL AST (17-59) U/L Total Protein (6.3-8.2) g/dL Albumin (3.5-5.0) g/dL 05/31/23 05/31/23 05/31/23 Range/Units 13:54 14:50 15:48 WBC (3.8-10.6) k/uL RBC (4.30-5.90) m/uL Hgb (13.0-17.5) gm/dL Hct (39.0-53.0) % Neutrophils # (1.3-7.7) k/uL Lymphocytes # (1.0-4.8) k/uL Sodium (137-145) mmol/L Carbon Dioxide (22-30) mmol/L BUN (9-20) mg/dL Creatinine (0.66-1.25) mg/dL Glucose (74-99) mg/dL POC Glucose (mg/dL) 214 H 161 H 152 H (70-110) mg/dL AST (17-59) U/L Total Protein (6.3-8.2) g/dL Albumin (3.5-5.0) g/dL 05/31/23 05/31/23 06/01/23 Range/Units 17:04 20:47 05:33 WBC 10.9 H (3.8-10.6) k/uL RBC 3.36 L (4.30-5.90) m/uL Hgb 10.5 L (13.0-17.5) gm/dL Hct 32.3 L (39.0-53.0) % Neutrophils # 9.1 H (1.3-7.7) k/uL Lymphocytes # 0.9 L (1.0-4.8) k/uL Sodium (137-145) mmol/L Carbon Dioxide (22-30) mmol/L BUN (9-20) mg/dL Creatinine (0.66-1.25) mg/dL Glucose (74-99) mg/dL POC Glucose (mg/dL) 122 H 227 H (70-110) mg/dL AST (17-59) U/L Total Protein (6.3-8.2) g/dL Albumin (3.5-5.0) g/dL 06/01/23 06/01/23 Range/Units 05:33 06:55 WBC (3.8-10.6) k/uL RBC (4.30-5.90) m/uL Hgb (13.0-17.5) gm/dL Hct (39.0-53.0) % Neutrophils # (1.3-7.7) k/uL Lymphocytes # (1.0-4.8) k/uL Sodium 132 L (137-145) mmol/L Carbon Dioxide 15 L (22-30) mmol/L BUN 29 H (9-20) mg/dL Creatinine 1.75 H (0.66-1.25) mg/dL Glucose 153 H (74-99) mg/dL POC Glucose (mg/dL) 170 H (70-110) mg/dL AST 77 H (17-59) U/L Total Protein 5.8 L (6.3-8.2) g/dL Albumin 3.3 L (3.5-5.0) g/dL Assessment and Plan Assessment: Postop day #3, status post off-pump three-vessel bypass surgery. Routine postoperative ventilator management, with successful extubation on May 29, 2023. History of hypertension. History of hyperlipidemia. History of type 2 diabetes mellitus. History of TIA x 4, with residual left-sided weakness. History of BPH. History of peripheral neuropathy. History of colon cancer, status post colon resection. Plan: Plan dated May 29, 2023. The patient is seen today in room 260. Labs, x-rays, and medications are reviewed. The patient's cardiac output is 5.5. The cardiac index is 2.6. Blood gases show pO2 of 147, pCO2 of 39, pH is 7.33, on 100% oxygen. The patient's FiO2 is turned down to 70%. The patient continues on insulin at 1 unit an hour, nitroglycerin at 5 mcg/min, lactated Ringer's at 50 cc an hour, propofol at 25 mcg/kg/min, and amiodarone at 1 mg/min. We will continue to follow, and make recommendations along the way. I suspect the patient will be relatively quick extubation. We will continue to follow. Plan dated May 30, 2023. The patient was extubated yesterday. He is postoperative day #1. Labs, x-rays, and medications are reviewed. Currently he is on oxygen at 4 L. He is getting lactated Ringer's at 50 cc an hour, amiodarone at 0.5 mg/min, and insulin drip at 5.5 units an hour. We will continue to follow the patient, make recommendations along the way. We encourage deep breathing, coughing, and clearing of secretions. We also recommended hourly use of the incentive spirometer. We will continue to follow. Prognosis is guarded. Plan dated May 31, 2023. The patient was extubated on the second. Last night, the patient developed atrial fibrillation with rapid ventricular response, and was started on amiodarone at 0.5 mg/min. The patient continues on lactated Ringer's at 30 cc an hour, as well as insulin drip at 7 units an hour. Labs, x-rays, and medications are reviewed. We will continue to follow the patient, make recommendations along the way. Prognosis is guarded. Plan dated June 01, 2023. The patient is postop day #3. He is doing relatively well. Currently, he is on 3 L of oxygen. He is not receiving any IV fluids. Labs, x-rays, and medications are reviewed. We will continue to follow the patient, and make recommendations along the way. The patient's overall prognosis remains guarded. Chest x-ray shows some basilar atelectasis. Labs are within normal range for the most part. Time with Patient: Less than 30
--- NOTE | 2023-06-01 11:05 | P.PN ---
Subjective Progress Note Date: 06/01/23 Subjective: Patient seen and examined at bedside. No acute events overnight. Ceballos catheter and chest tubes discontinued. Patient is on nasal cannula. Continues to be on amiodarone drip. Pertinent positives and negatives as discussed above, a complete review of systems was performed and all other systems are negative. Vitals Signs Reviewed. General: Nontoxic, no distress, appears at stated age Derm: Warm, dry, Dressing clean, dry, intact Head: Atraumatic, normocephalic, symmetric Eyes: EOMI, no lid lag, anicteric sclera Mouth: No lip lesion, mucus membranes moist Cardiovascular: S1S2 irregular, no murmur Lungs: CTA bilateral, no rhonchi, no rales, no accessory muscle use Abdominal: Soft, nontender to palpation, no guarding, no appreciable organomegaly Ext: No gross muscle atrophy, no edema, no contractures Neuro: CN II-XI grossly intact, no focal neuro deficits Psych: Alert, oriented, appropriate affect Data Reviewed Today: Pertinent Labs: WBC 10.9, hemoglobin 10.5, sodium 132, bicarb 15, anion gap 12, creatinine 1.75, glucose range between 1 22-2 27 Imaging: Chest x-ray independently interpreted, shows bilateral interstitial opacities reflective of postoperative changes improved from prior. Assessment and Plan: 73-year-old male with CAD status post 4 vessel coronary artery bypass grafting Paroxysmal atrial fibrillation with RVR Transaminitis, resolving Hypertension Dyslipidemia Acute hypoxic respiratory failure, anticipated outcome of surgery, Resolving -CT surgery note reviewed, continue amiodarone drip, no anticoagulation at this point, likely transfer out of the ICU. -Pulmonary note reviewed: Continue current care, encourage incentive spirometer -Also on amiodarone 400 mg twice daily, amlodipine 5 daily, aspirin 325 mg daily, Lipitor 40 mg daily, Plavix 75 mg daily, Lopressor increased to 50 twice daily Acute blood loss anemia, anticipated outcome of surgery Leukocytosis, anticipated outcome of surgery -No indication for transfusion at this time -Repeat CBC in a.m. Acute kidney injury, nonoliguric - Renal function slowly worsening - On Flomax 0.4 mg daily - Renal ultrasound ordered Diabetes mellitus type 2 with neuropathy -Hemoglobin A1c 7.5 -Hold metformin, patient is not chronically on insulin -Insulin drip discontinued, Levemir 25 units daily, continue on sliding scale insulin, monitor for hypoglycemia Chronic: History of CVA x 4 History of seizure disorder History of colon cancer in the past Thank you for allowing us to participate in the care of this pleasant patient. Do not hesitate to contact us with questions. Someone can be reached from the [facility] hospitalist group all hours of the day at [phone] or via [employer]. Objective - Vital Signs Vital signs: Vital Signs Temp 98.2 F 06/01/23 08:00 Pulse 99 06/01/23 09:00 Resp 24 06/01/23 09:00 BP 125/64 06/01/23 09:00 Pulse Ox 94 L 06/01/23 09:00 FiO2 50 05/29/23 16:01 Intake & Output 05/31/23 06/01/23 06/01/23 18:59 06:59 18:59 Intake Total 356.335 700 250 Output Total 380 750 Balance -23.665 -50 250 Weight 98.2 kg Intake: IV 260 0 0 Lactated Ringers 1,000 ml 230 0 0 @ 20 mls/hr IV .Q24H [facility] Rx#:[id number] pressure bag 30 Intake, IV Titration 96.335 Amount Albumin Human 25% 50 ml 50 In Empty Bag 1 bag @ 50 mls/hr IVPB ONCE ONE Rx#: [id number] Insulin Regular 100 unit 46.335 In Sodium Chloride 0.9% 100 ml @ Per Protocol IV .Q0M [facility] Rx#:[id number] Oral 700 250 Output: Chest Tube Drainage 100 Mediastinal 10 left and right 90 Urine 165 500 Post Void Residual 115 Urine/Stool Mix 250 Other: Voiding Method Indwelling Catheter # Bowel Movements 1 ABP, PAP, CO, CI - Last Documented Arterial Blood Pressure 107/53 Pulmonary Artery Pressure 20/14 Cardiac Output 5.8 Cardiac Index 2.8 - Labs CBC & Chem 7: 06/01/23 05:33 06/01/23 05:33 Labs: Abnormal Lab Results - Last 24 Hours (Table) 05/31/23 05/31/23 05/31/23 Range/Units 11:23 11:56 13:04 WBC (3.8-10.6) k/uL RBC (4.30-5.90) m/uL Hgb (13.0-17.5) gm/dL Hct (39.0-53.0) % Neutrophils # (1.3-7.7) k/uL Lymphocytes # (1.0-4.8) k/uL Sodium (137-145) mmol/L Carbon Dioxide (22-30) mmol/L BUN (9-20) mg/dL Creatinine (0.66-1.25) mg/dL Glucose (74-99) mg/dL POC Glucose (mg/dL) 125 H 118 H 171 H (70-110) mg/dL AST (17-59) U/L Total Protein (6.3-8.2) g/dL Albumin (3.5-5.0) g/dL 05/31/23 05/31/23 05/31/23 Range/Units 13:54 14:50 15:48 WBC (3.8-10.6) k/uL RBC (4.30-5.90) m/uL Hgb (13.0-17.5) gm/dL Hct (39.0-53.0) % Neutrophils # (1.3-7.7) k/uL Lymphocytes # (1.0-4.8) k/uL Sodium (137-145) mmol/L Carbon Dioxide (22-30) mmol/L BUN (9-20) mg/dL Creatinine (0.66-1.25) mg/dL Glucose (74-99) mg/dL POC Glucose (mg/dL) 214 H 161 H 152 H (70-110) mg/dL AST (17-59) U/L Total Protein (6.3-8.2) g/dL Albumin (3.5-5.0) g/dL 05/31/23 05/31/23 06/01/23 Range/Units 17:04 20:47 05:33 WBC 10.9 H (3.8-10.6) k/uL RBC 3.36 L (4.30-5.90) m/uL Hgb 10.5 L (13.0-17.5) gm/dL Hct 32.3 L (39.0-53.0) % Neutrophils # 9.1 H (1.3-7.7) k/uL Lymphocytes # 0.9 L (1.0-4.8) k/uL Sodium (137-145) mmol/L Carbon Dioxide (22-30) mmol/L BUN (9-20) mg/dL Creatinine (0.66-1.25) mg/dL Glucose (74-99) mg/dL POC Glucose (mg/dL) 122 H 227 H (70-110) mg/dL AST (17-59) U/L Total Protein (6.3-8.2) g/dL Albumin (3.5-5.0) g/dL 06/01/23 06/01/23 Range/Units 05:33 06:55 WBC (3.8-10.6) k/uL RBC (4.30-5.90) m/uL Hgb (13.0-17.5) gm/dL Hct (39.0-53.0) % Neutrophils # (1.3-7.7) k/uL Lymphocytes # (1.0-4.8) k/uL Sodium 132 L (137-145) mmol/L Carbon Dioxide 15 L (22-30) mmol/L BUN 29 H (9-20) mg/dL Creatinine 1.75 H (0.66-1.25) mg/dL Glucose 153 H (74-99) mg/dL POC Glucose (mg/dL) 170 H (70-110) mg/dL AST 77 H (17-59) U/L Total Protein 5.8 L (6.3-8.2) g/dL Albumin 3.3 L (3.5-5.0) g/dL
[2023-06-01 11:40] LABS: Glucose,Whole Blood 148 mg/dL (70-110)
[2023-06-01] MEDS: METOPROLOL TARTRATE 25 MG TAB PO STA (11:53)
[2023-06-01 14:00] LABS: Glucose,Whole Blood 193 mg/dL (70-110)
[2023-06-01] MEDS: ASPIRIN 325 MG TAB PO ONE (15:00)
[2023-06-01] MEDS: ALBUMIN HUMAN 25% 50 ML IV ONE (15:00)
[2023-06-01] MEDS: ALBUMIN HUMAN 5% 500 ML IVPB ONE (15:00)
[2023-06-01] MEDS: NITROGLYCERIN SL TABS 0.4 MG TAB SUBLINGUAL ONE (15:01)
[2023-06-01] MEDS: CLEVIDIPINE BUTYRATE 25 MG in EMPTY BAG 1 BAG IV ONE (15:01)
[2023-06-01] MEDS: CHLORHEXIDINE GLUCONATE 15 ML CUP MUCOUS MEM ONE (15:01)
[2023-06-01] MEDS: DILTIAZEM 125 MG in SODIUM CHLORIDE 0.9% 100 ML IV ONE (15:01)
[2023-06-01] MEDS: CALCIUM CHLORIDE 100 MG/ML 10 ML SYRINGE IV ONE (15:01)
[2023-06-01] MEDS: ceFAZolin 1,000 MG in SODIUM CHLORIDE 0.9% IRRIGATIO 1,000 ML IRRIGATION ONE (15:01)
[2023-06-01] MEDS: MAGNESIUM SULFATE 16.24 MEQ in EMPTY SYRINGE 1 SYR IV ONE (15:02)
[2023-06-01] MEDS: MANNITOL 25% 12.5 GM/50 ML VIAL IV ONE (15:02)
[2023-06-01] MEDS: INSULIN REGULAR 100 UNIT in SODIUM CHLORIDE 0.9% 100 ML IV ONE (15:02)
[2023-06-01] MEDS: ELECTROLYTE-A SOLUTION 1,000 ML with POTASSIUM CHLORIDE 100 MEQ, MAGNESIUM SULFATE 16 M... IV ONE (15:03)
[2023-06-01] MEDS: SODIUM BICARB 8.4% 50 ML SYR (1 MEQ/ML) IV ONE (15:03)
[2023-06-01] MEDS: ELECTROLYTE-A SOLUTION 1,000 ML with POTASSIUM CHLORIDE 40 MEQ, MAGNESIUM SULFATE 16 ME... IV ONE (15:03)
[2023-06-01] MEDS: HEPARIN SODIUM,PORCINE (1 ML) 5,000 UNIT in SODIUM CHLORIDE 0.9% 500 ML 500 ML IV ONE (15:03)
[2023-06-01] MEDS: HEPARIN SODIUM 1,000 UN/ML (10ML VL) IV ONE (15:03)
[2023-06-01] MEDS: NITROGLYCERIN-D5W PMX 50 MG in DEXTROSE/WATER 1 250ML.BAG IV ONE (15:04)
[2023-06-01] MEDS: PROTAMINE SULFATE 250 MG in EMPTY BAG 1 BAG IV ONE (15:04)
[2023-06-01] MEDS: PROTAMINE SULFATE 10 MG/ML 25 ML VIAL IV ONE (15:04)
[2023-06-01] MEDS: NOREPINEPHRINE 4 MG in SODIUM CHLORIDE 0.9% 250 ML IV ONE (15:04)
[2023-06-01] MEDS: PHENYLEPHRINE 40 MG in SODIUM CHLORIDE 0.9% 250 ML IV ONE (15:04)
[2023-06-01] MEDS: NITROGLYCERIN-D5W PMX 25 MG/250 ML BTL IV ONE (15:04)
[2023-06-01] MEDS: PAPAVERINE 360 MG in SODIUM CHLORIDE 0.9% 90 ML IV ONE (15:04)
[2023-06-01] MEDS: propofoL 1,000 MG/100 ML VIAL IV ONE (15:05)
[2023-06-01] MEDS: PHENYLEPHRINE 10 MG/ML VIAL IV ONE (15:05)
[2023-06-01] MEDS: TRANEXAMIC ACID 2,000 MG in SODIUM CHLORIDE 0.9% 80 ML IV ONE (15:05)
[2023-06-01] MEDS: SODIUM CHLORIDE 0.9% 1,000 ML IV ONE (15:05)
[2023-06-01 16:25] LABS: Glucose,Whole Blood 171 mg/dL (70-110)
--- NOTE | 2023-06-01 16:35 | US ---
EXAMINATION TYPE: US kidneys/renal and bladder DATE OF EXAM: 06/01/2023 COMPARISON: NONE CLINICAL INDICATION: Male, 73 years old with history of lester; EXAM MEASUREMENTS: Right Kidney: 9.6 x 5.3 x 5.9 cm Left Kidney: 11.7 x 6.0 x 5.6 cm Post Void Residual Volume: NA mL Right Kidney: Simple cyst redemonstrated Left Kidney: wnl Bladder: wnl Bilateral Jets seen: Yes Normal Post Void Residual: NA IMPRESSION: Stable simple cyst lateral right kidney.
[2023-06-01 20:07] LABS: Glucose,Whole Blood 198 mg/dL (70-110)
[2023-06-01] MEDS: METOPROLOL TARTRATE 50 MG TAB PO SCH (20:24)
--- NOTE | 2023-06-01 21:23 | PN ---
PROGRESS NOTE SUBJECTIVE: A 73-year-old gentleman who was admitted to hospital electively for bypass surgery. Today is postop day #3. He remains mildly hypotensive. OBJECTIVE: VITAL SIGNS: Heart rate is varying between 90 and 100 beats per minute, irregular, blood pressure is 100/67, respiratory rate is 18. CHEST: Reveals diminished air entry at the bases. HEART: Reveals first and second heart sounds. Irregular rhythm. EXTREMITIES: Did not reveal any edema. LABORATORY DATA: Liver enzymes have improved. Labs show a potassium of 4, BUN is 29, creatinine is 1.7, and hemoglobin is 10.5. ASSESSMENT: 1. Coronary artery disease, status post coronary artery bypass graft. 2. Persistent atrial fibrillation with controlled ventricular rate. PLAN: We will continue the patient on Lopressor, increase the dose to 50 b.i.d. Amiodarone is not serving any purpose at the moment if that has not been able to keep the patient in sinus rhythm. If the patient remains in atrial fibrillation tomorrow and we are able to control the heart rate with beta blockers, consider stopping the amiodarone to avoid unnecessary toxicity related to the amiodarone. MMODL / IJN: [id number] /
[2023-06-02 06:07] LABS: Glucose,Whole Blood 136 mg/dL (70-110)
--- NOTE | 2023-06-02 08:02 | XR ---
EXAMINATION TYPE: XR chest 2V DATE OF EXAM: 06/02/2023 HISTORY: post cardiac surgery COMPARISON: 06/01/2023 TECHNIQUE: Single view of the chest is submitted. FINDINGS: Postoperative changes of CABG with sternotomy wires and mediastinal clips in place as well as left at rial clip. Demonstrated are scattered senescent parenchymal change. No pneumothorax present. There is no evidence for focal infiltrate. Improving discoid atelectasis left perihilar left basilar region. The heart is stable. Hilar and mediastinal structures are within normal limits. Degenerative changes are seen of the dorsal spine. IMPRESSION: 1. Improving discoid atelectasis left perihilar left basilar region.
[2023-06-02 09:23] LABS: HCT 30.3 % (39.0-53.0); HGB 10.3 gm/dL (13.0-17.5); MCH 32.3 pg (25.0-35.0); MCHC 34.1 g/dL (31.0-37.0); MCV 94.8 fL (80.0-100.0); Mean Platelet Volume 9.4; Platelet Count 262 k/uL (150-450); RDW 13.3 % (11.5-15.5); WBC 8.1 k/uL (3.8-10.6)
[2023-06-02 09:38] LABS: ALT 44 U/L (4-49); AST 61 U/L (17-59); African American GFR (CKD) 46 (>60 ml/min/1.73 sqM); Albumin 3.2 g/dL (3.5-5.0); Alkaline Phosphatase 67 U/L (38-126); Anion Gap 10 mmol/L; Blood Urea Nitrogen 30 mg/dL (9-20); Calcium 8.8 mg/dL (8.4-10.2); Carbon Dioxide 21 mmol/L (22-30); Chloride 105 mmol/L (98-107); Glucose 135 mg/dL (74-99); Non-African American GFR(CKD) 40 (>60 ml/min/1.73 sqM); Potassium 3.9 mmol/L (3.5-5.1); Sodium 136 mmol/L (137-145); Total Bilirubin 0.5 mg/dL (0.2-1.3); Total Protein 5.7 g/dL (6.3-8.2)
--- NOTE | 2023-06-02 10:06 | P.PN ---
Subjective Progress Note Date: 06/02/23 Principal diagnosis: Triple vessel coronary artery disease. 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 POD #4 off pump coronary artery bypass grafting x 3, left internal thoracic artery (in-situ) to left anterior descending coronary artery, radial artery from aorta to obtuse marginal artery, saphenous vein from aorta to posterior descending coronary artery, left atrial appendage ligation using #35mm AtriClip, endoscopic left radial and right greater saphenous vein harvest, graft flow measurements using the [employer] flow meter system, and intraoperative transesophageal echocardiogram. Postoperative acute blood loss anemia, expected given hemodilution. Paroxysmal atrial fibrillation, a known common occurrence after cardiac surgery. The patient was seen and examined in follow-up today June 02, 2023 at his bedside on the third floor cardiac stepdown unit. The patient is currently sitting up to the bedside chair, is awake, alert, oriented x 3 and is in no acute apparent distress. He denies any complaints of pain or shortness of breath at this time. He reports he continues to feel stronger on a daily basis and has been ambulating farther in the hallway with standby assistance from nursing and therapy staff with each walk. Oxygen saturations are 93% on 2 L nasal cannula and he is achieving 1250 mL on his incentive spirometry with encouragement. He remains hemodynamically stable and is currently on no inotropic or pressor support. Discharge planning is in place. Chest x-ray and laboratory results reviewed. Objective - Vital Signs Vital signs: Vital Signs Temp 97.8 F 06/02/23 04:00 Pulse 108 H 06/02/23 08:58 Resp 22 06/02/23 04:00 BP 124/74 06/02/23 04:00 Pulse Ox 92 L 06/02/23 04:00 FiO2 50 05/29/23 16:01 Intake & Output 06/01/23 06/02/23 06/02/23 18:59 06:59 18:59 Intake Total 668 540 Output Total 600 1320 Balance 68 -780 Weight 100.2 kg Intake: IV 0 Lactated Ringers 1,000 ml 0 @ 20 mls/hr IV .Q24H [facility] Rx#:[id number] Oral 668 540 Output: Urine 600 1320 Other: Voiding Method Toilet # Voids 1 1 # Bowel Movements 1 ABP, PAP, CO, CI - Last Documented Arterial Blood Pressure 107/53 Pulmonary Artery Pressure 20/14 Cardiac Output 5.8 Cardiac Index 2.8 - Exam CONSTITUTIONAL: Sitting up to the bedside chair on the third floor cardiac stepdown unit, appears comfortable, cooperative, no apparent acute distress. HEENT: Neck is supple, no JVD, no lymphadenopathy. RESPIRATORY: Lungs sounds essentially clear throughout, diminished to his bilateral bases. Respirations are symmetrical and nonlabored. Currently on 2 L nasal cannula with oxygen saturations 93%. Able to achieve 1250 mL on his incentive spirometry. Strong cough. CARDIOVASCULAR: Regular rhythm and rate. S1 and S2 present, negative for S3, gallop or murmur. Remote telemetry showing atrial fibrillation heart rate 106 bpm. Sternum is stable. Palpable peripheral pulses bilaterally, +1 edema to his bilateral lower extremities. No calf pain or tenderness noted. Heart h ugger in place with patient demonstrating appropriate use. Knee-high ZAKI hose and sequential compression devices in place to his bilateral lower extremities. GASTROINTESTINAL: Abdomen soft, nontender, nondistended. Active bowel sounds present 4 quadrants. Tolerating diet. Passing flatus. No guarding or rigidity. GENITOURINARY: Continues to void. Urine output 1320 mL in the last 8 hours. INTEGUMENTARY: Skin is warm and dry with no evidence of clubbing or cyanosis. Midline sternal incision clean dry and well approximated, covered with dry intact dressing. Right lower extremity EVH sites well approximated without redness or drainage. Left arm radial artery harvest sites clean, dry and approximated. No drainage or redness is present. NEUROLOGIC: Cranial nerves II through XII intact. Chronic left-sided weakness, residual from previous TIA. MUSKULOSKELETAL: Able to move all extremities, generalized weakness. PSYCHIATRIC: Alert and oriented to person place and time, appropriate affect, intact judgment and insight. - Allied health notes Allied health notes reviewed: nursing - Labs CBC & Chem 7: 06/02/23 07:02 06/02/23 07:02 Labs: Abnormal Lab Results - Last 24 Hours (Table) 06/01/23 06/01/23 06/01/23 Range/Units 11:39 13:58 16:23 RBC (4.30-5.90) m/uL Hgb (13.0-17.5) gm/dL Hct (39.0-53.0) % Sodium (137-145) mmol/L Carbon Dioxide (22-30) mmol/L BUN (9-20) mg/dL Creatinine (0.66-1.25) mg/dL Glucose (74-99) mg/dL POC Glucose (mg/dL) 148 H 193 H 171 H (70-110) mg/dL AST (17-59) U/L Total Protein (6.3-8.2) g/dL Albumin (3.5-5.0) g/dL 06/01/23 06/02/23 06/02/23 Range/Units 20:06 06:05 07:02 RBC 3.20 L (4.30-5.90) m/uL Hgb 10.3 L (13.0-17.5) gm/dL Hct 30.3 L (39.0-53.0) % Sodium (137-145) mmol/L Carbon Dioxide (22-30) mmol/L BUN (9-20) mg/dL Creatinine (0.66-1.25) mg/dL Glucose (74-99) mg/dL POC Glucose (mg/dL) 198 H 136 H (70-110) mg/dL AST (17-59) U/L Total Protein (6.3-8.2) g/dL Albumin (3.5-5.0) g/dL 06/02/23 Range/Units 07:02 RBC (4.30-5.90) m/uL Hgb (13.0-17.5) gm/dL Hct (39.0-53.0) % Sodium 136 L (137-145) mmol/L Carbon Dioxide 21 L (22-30) mmol/L BUN 30 H (9-20) mg/dL Creatinine 1.67 H (0.66-1.25) mg/dL Glucose 135 H (74-99) mg/dL POC Glucose (mg/dL) (70-110) mg/dL AST 61 H (17-59) U/L Total Protein 5.7 L (6.3-8.2) g/dL Albumin 3.2 L (3.5-5.0) g/dL - Imaging and Cardiology Chest x-ray: report reviewed, image reviewed Assessment and Plan Assessment: Triple vessel coronary artery disease, status post three-vessel off-pump CABG Hypertension Hyperlipidemia, treated, cholesterol 142, LDL 58, triglycerides 211 Diabetes, preoperative hemoglobin A1c 7.5% TIA x 4, with residual left-sided weakness BPH, currently on Flomax Remote history of tobacco dependence quit smoking 50 years ago, preoperative FE V1 86% of predicted Peripheral neuropathy Colon cancer status post colon resection Family history of premature coronary artery disease, with his dad having coronary artery disease in his mid 50s Postoperative acute blood loss anemia, expected Postoperative paroxysmal atrial fibrillation, a known common occurrence after cardiac surgery, status post left atrial appendage ligation Plan: Continue to maximize medical therapy with aspirin, statin, Plavix, beta-jorge. Will increase his metoprolol to tartrate to 75 mg p.o. twice daily, with hold parameters. Continue low-dose amlodipine for radial artery spasm prophylaxis Continue amiodarone. No anticoagulation at this point, continue Plavix and aspirin. Wean O2 as tolerated. Encourage incentive spirometry use 10 times every hour while awake. Bronchodilators per pulmonology. Increase activity, ambulate as tolerated. PT/OT/cardiac rehab following. Will monitor daily labs and chest x-rays. Electrolyte replacement per protocol. Insulin management per internal medicine. Preoperative hemoglobin A1c 7.5%. Pain control with current medication regimen. GI/DVT prophylaxis. Daily weights. Continue home dose of Flomax. Discharge planning is in place, anticipate discharge home with home health care in the next 48 hours. More recommendations to follow based on patient's clinical course Time with Patient: Greater than 30
[2023-06-02 11:51] LABS: Glucose,Whole Blood 180 mg/dL (70-110)
--- NOTE | 2023-06-02 12:12 | P.PN ---
Subjective HISTORY OF PRESENT ILLNESS: Patient is status post CABG x 3 vessels. Patient examined this morning. He is sitting up in the chair. His family is present. He denies chest pain or pressure. He denies shortness of breath. He has been ambulating without difficulty. Telemetry reveals atrial fibrillation with heart rates in the low 100s. Blood pressure stable with a recent reading of 124/74. PHYSICAL EXAM: VITAL SIGNS: Reviewed. GENERAL: Well-developed in no acute distress. NECK: Supple. No JVD or thyromegaly LUNGS: Respirations even and unlabored. Lungs essentially clear to auscultation bilaterally. HEART: Irregular rate and rhythm. S1 and S2 heard. Heart hugger noted. EXTREMITIES: Normal range of motion. No clubbing or cyanosis. Peripheral pulses intact. Trace bilateral lower extremity edema ASSESSMENT: Coronary artery disease, status post three-vessel CABG Postoperative paroxysmal atrial fibrillation Hypertension Hyperlipidemia History of TIA x 4 with residual left-sided weakness History of colon cancer status post colon resection Former nicotine dependence History of BPH PLAN: Continue postoperative management per CT surgery Metoprolol tartrate was increased to 75 mg twice daily by CT surgery today Continue additional cardiac medications Continue telemetry monitoring Increase activity as tolerated Encourage use of incentive spirometer Further recommendations pending patient course Nurse practitioner note has been reviewed by physician. Signing provider agrees with the documented findings, assessment, and plan of care documented by DAT[employer]ASE MARKETING MANAGER as a scribe. Objective - Vital Signs Vital signs: Vital Signs Temp 97.8 F 06/02/23 04:00 Pulse 108 H 06/02/23 08:58 Resp 22 06/02/23 04:00 BP 124/74 06/02/23 04:00 Pulse Ox 92 L 06/02/23 04:00 FiO2 50 05/29/23 16:01 Intake & Output 06/01/23 06/02/23 06/02/23 18:59 06:59 18:59 Intake Total 668 540 Output Total 600 1320 Balance 68 -780 Weight 100.2 kg Intake: IV 0 Lactated Ringers 1,000 ml 0 @ 20 mls/hr IV .Q24H [facility] Rx#:[id number] Oral 668 540 Output: Urine 600 1320 Other: Voiding Method Toilet # Voids 1 1 # Bowel Movements 1 ABP, PAP, CO, CI - Last Documented Arterial Blood Pressure 107/53 Pulmonary Artery Pressure 20/14 Cardiac Output 5.8 Cardiac Index 2.8 - Labs CBC & Chem 7: 06/02/23 07:02 06/02/23 07:02 Labs: Abnormal Lab Results - Last 24 Hours (Table) 06/01/23 06/01/23 06/01/23 Range/Units 13:58 16:23 20:06 RBC (4.30-5.90) m/uL Hgb (13.0-17.5) gm/dL Hct (39.0-53.0) % Sodium (137-145) mmol/L Carbon Dioxide (22-30) mmol/L BUN (9-20) mg/dL Creatinine (0.66-1.25) mg/dL Glucose (74-99) mg/dL POC Glucose (mg/dL) 193 H 171 H 198 H (70-110) mg/dL AST (17-59) U/L Total Protein (6.3-8.2) g/dL Albumin (3.5-5.0) g/dL 06/02/23 06/02/23 06/02/23 Range/Units 06:05 07:02 07:02 RBC 3.20 L (4.30-5.90) m/uL Hgb 10.3 L (13.0-17.5) gm/dL Hct 30.3 L (39.0-53.0) % Sodium 136 L (137-145) mmol/L Carbon Dioxide 21 L (22-30) mmol/L BUN 30 H (9-20) mg/dL Creatinine 1.67 H (0.66-1.25) mg/dL Glucose 135 H (74-99) mg/dL POC Glucose (mg/dL) 136 H (70-110) mg/dL AST 61 H (17-59) U/L Total Protein 5.7 L (6.3-8.2) g/dL Albumin 3.2 L (3.5-5.0) g/dL 06/02/23 Range/Units 11:42 RBC (4.30-5.90) m/uL Hgb (13.0-17.5) gm/dL Hct (39.0-53.0) % Sodium (137-145) mmol/L Carbon Dioxide (22-30) mmol/L BUN (9-20) mg/dL Creatinine (0.66-1.25) mg/dL Glucose (74-99) mg/dL POC Glucose (mg/dL) 180 H (70-110) mg/dL AST (17-59) U/L Total Protein (6.3-8.2) g/dL Albumin (3.5-5.0) g/dL
[2023-06-02] MEDS: POTASSIUM CHLORIDE ER 20 MEQ TAB.ER PO SCH (12:52)
[2023-06-02] MEDS: INSULIN ASPART (NovoLOG) 100 UNIT/ML VIAL SQ SCH (12:52)
--- NOTE | 2023-06-02 13:14 | P.PN ---
Subjective Progress Note Date: 06/02/23 73-year-old male seen in the intensive care unit, room 260. He just came back from the operating room, having had an off-pump three-vessel bypass surgery, with Dr. Vang. The patient had a BOO to LAD bypass, left radial to obtuse marginal bypass, and SVG to PDA bypass. The patient is on the mechanical ventilator. Ventilator settings include volume assist-control, rate 18, tidal volume 400, FiO2 70%, PEEP of 5. Blood gases show pO2 147, pCO2 of 39, pH is 7.33. The patient's cardiac output is 5.5 with an index of 2.6. The patient is on insulin drip at 1 unit an hour, nitroglycerin at 5 mcg/min, lactated Ringer's at 50 cc an hour, propofol at 25 mcg/kg/min, and amiodarone at 1 mg/min. The jayson oh has a history of hypertension, hyperlipidemia, TIA, with some residual left-sided weakness, diabetes mellitus, BPH, peripheral neuropathy, colon cancer status post colon resection, and a family history of cardiac disease. Current labs include a white count 11.2, hemoglobin 11.2, hematocrit 33.8, and a platelet count is 170,000. Sodium 139, potassium 4, chlorides 112, CO2 16, BUN 21, and creatinine 1.13. Glucose is 136. Albumin is 3.5. His x-ray shows some postsurgical changes, without anything acute. Endotracheal tube is 4 cm above the trav. Progress note dated May 30, 2023. This is a 73-year-old male who is postop day #1, status post off-pump three- vessel bypass surgery. The patient was seen yesterday in the ICU. Currently, he is on 4 L nasal cannula. He is getting lactated Ringer's at 50 cc an hour, and amiodarone at 0.5 mg/min. In addition, he is on an insulin drip at 5.5 units an hour. The patient sitting in a chair next to his bed. Laboratory data includes a white count 11.6, hemoglobin 11.9, hematocrit 36.2, and a normal platelet count. Sodium 137, potassium 4.1, chlorides 110, CO2 18, BUN 18, creatinine 1.16. Glucose is 125. AST is 88 and ALT is 123. Albumin is 3.2. Chest x-rays shows postsurgical changes. The endotracheal tube has been removed . Other lines appear to be in good position. Progress note dated May 31, 2023. 73-year-old male postop day #2, status post off-pump three-vessel bypass surgery. The patient is seen today in room 260. Currently, the patient is on 4 L of oxygen by nasal cannula. The patient is getting lactated Ringer's at 30 cc an hour. In addition, the patient is getting an insulin drip at 7 units an hour, and amiodarone at 0.5 mg/min, as he developed atrial fibrillation with RVR, last night. Current laboratory data includes a white count 11.7, hemoglobin 10.5, hematocrit 32.9, and a platelet count of 166,000. Sodium 133, potassium 4.4, chlorides 107, CO2 19, anion gap 7, BUN 23, creatinine 1.58. G lucose is 149. Albumin is 3. Chest x-ray shows typical postoperative changes, with some basilar atelectasis. Progress note dated June 01, 2023. 73-year-old male who is postop day #3, status post off-pump three-vessel bypass surgery. The patient is seen in room 260. Currently, he is on 3 L of oxygen. He is not receiving any IV fluids. He is getting about 600 cc on his incentive spirometer. He has no specific complaints today. White count is 10.9, hemoglobin 10.5, hematocrit 32.3, with a normal platelet count. Sodium 132, potassium 4, chloride 105, CO2 15, anion gap 12, BUN 29, creatinine 1.75. Glucose is 170. Albumin is 3.3. Chest x-ray shows a stable examination, with some basilar atelectasis. The patient is seen today June 02, 2023 in follow-up on the cardiac care unit. He is currently sitting up in a chair. Awake and alert in no acute distress. He is postoperative day #4. He is currently maintaining good O2 saturations in the 90s on 2 L/min per nasal cannula. He is afebrile. Hemodynamically stable. White count 8.1. Hemoglobin 10.3. Platelets 262. Sodium 136. Potassium 3.9. Bicarb 21. BUN 30. Creatinine 1.67. Glucose 135. Chest x-ray is showing improved atelectasis to the left hilar and left basilar region. Continues to work well with the incentive spirometer. He is continued on bronchodilators. Heparin for DVT prophylaxis. Objective - Vital Signs Vital signs: Vital Signs Temp 97.8 F 06/02/23 04:00 Pulse 84 06/02/23 12:45 Resp 22 06/02/23 04:00 BP 124/74 06/02/23 04:00 Pulse Ox 92 L 06/02/23 04:00 FiO2 50 05/29/23 16:01 Intake & Output 06/01/23 06/02/23 06/02/23 18:59 06:59 18:59 Intake Total 668 540 Output Total 600 1320 Balance 68 -780 Weight 100.2 kg Intake: IV 0 Lactated Ringers 1,000 ml 0 @ 20 mls/hr IV .Q24H [facility] Rx#:[id number] Oral 668 540 Output: Urine 600 1320 Other: Voiding Method Toilet # Voids 1 1 # Bowel Movements 1 ABP, PAP, CO, CI - Last Documented Arterial Blood Pressure 107/53 Pulmonary Artery Pressure 20/14 Cardiac Output 5.8 Cardiac Index 2.8 - Exam GENERAL EXAM: Alert, pleasant 73-year-old gentleman, up in a chair, comfortable in no apparent distress. HEAD: Normocephalic. EYES: Normal reaction of pupils, equal size. NOSE: Clear with pink turbinates. THROAT: No erythema or exudates. NECK: No masses, no JVD. CHEST: Sternal incision clean dry well-approximated, dressing intact, heart hugger in place. LUNGS: Equal air entry with no crackles, wheeze, rhonchi or dullness. CVS: S1 and S2 normal with no audible murmur, irregular rhythm. ABDOMEN: No hepatosplenomegaly, normal bowel sounds, no guarding or rigidity. SPINE: No scoliosis or deformity SKIN: No rashes CENTRAL NERVOUS SYSTEM: No focal deficits, tone is normal in all 4 extremities. EXTREMITIES: There is no peripheral edema. No clubbing, no cyanosis. Peripheral pulses are intact. - Labs CBC & Chem 7: 06/02/23 07:02 06/02/23 07:02 Labs: Abnormal Lab Results - Last 24 Hours (Table) 06/01/23 06/01/23 06/01/23 Range/Units 13:58 16:23 20:06 RBC (4.30-5.90) m/uL Hgb (13.0-17.5) gm/dL Hct (39.0-53.0) % Sodium (137-145) mmol/L Carbon Dioxide (22-30) mmol/L BUN (9-20) mg/dL Creatinine (0.66-1.25) mg/dL Glucose (74-99) mg/dL POC Glucose (mg/dL) 193 H 171 H 198 H (70-110) mg/dL AST (17-59) U/L Total Protein (6.3-8.2) g/dL Albumin (3.5-5.0) g/dL 06/02/23 06/02/23 06/02/23 Range/Units 06:05 07:02 07:02 RBC 3.20 L (4.30-5.90) m/uL Hgb 10.3 L (13.0-17.5) gm/dL Hct 30.3 L (39.0-53.0) % Sodium 136 L (137-145) mmol/L Carbon Dioxide 21 L (22-30) mmol/L BUN 30 H (9-20) mg/dL Creatinine 1.67 H (0.66-1.25) mg/dL Glucose 135 H (74-99) mg/dL POC Glucose (mg/dL) 136 H (70-110) mg/dL AST 61 H (17-59) U/L Total Protein 5.7 L (6.3-8.2) g/dL Albumin 3.2 L (3.5-5.0) g/dL 06/02/23 Range/Units 11:42 RBC (4.30-5.90) m/uL Hgb (13.0-17.5) gm/dL Hct (39.0-53.0) % Sodium (137-145) mmol/L Carbon Dioxide (22-30) mmol/L BUN (9-20) mg/dL Creatinine (0.66-1.25) mg/dL Glucose (74-99) mg/dL POC Glucose (mg/dL) 180 H (70-110) mg/dL AST (17-59) U/L Total Protein (6.3-8.2) g/dL Albumin (3.5-5.0) g/dL Assessment and Plan Assessment: Postop day #4, status post off-pump three-vessel bypass surgery Routine postoperative ventilator management, with successful extubation on May 29, 2023 History of hypertension History of hyperlipidemia History of type 2 diabetes mellitus History of TIA x 4, with residual left-sided weakness History of BPH History of peripheral neuropathy History of colon cancer, status post colon resection Plan: The patient was seen and evaluated Chest x-ray, labs and medications reviewed Stable and on 2 L nasal cannula Working well with the incentive spirometer Continued on bronchodilators Heparin for DVT prophylaxis Home once cleared by CT services I have personally seen and examined the patient, performed the documentation and the assessment and plan as written. Number of minutes spent on the visit: 10.
--- NOTE | 2023-06-02 13:55 | P.PN ---
Subjective Progress Note Date: 06/02/23 Patient is a 73-year-old male with hypertension, dyslipidemia, CVA/TIA x 4 with some residual left-sided weakness, diabetes mellitus type 2, BPH, peripheral neuropathy, and history of colon cancer who presented for vessel off pump bypass. Patient tolerated the procedure well without any immediate postoperative complications. Patient was admitted to the ICU and was extubateda t 5 hours. Patient seen and examined at bedside. Denies any chest pain, shortness of breath. Appetite is kicking back in. present at bedside all questions answered. Will continue with IV insulin and hope to resume metformin tomorrow. Made aware that he may need an additional oral medication at discharge to continue to control blood sugars in the postoperative period. Vital signs reviewed General: Nontoxic, due to pain after getting up to chair, appears at stated age Cardiovascular: S1S2 reg, no murmur [place] in place, mediastinal and thoracic chest tubes in place Lungs: Decreased breath sounds bilateral, no rhonchi, no rales, no accessory muscle use Abdominal: Soft, nontender to palpation, no guarding Ext: No gross muscle atrophy, trace edema b/l lower extremities, no contractures Neuro: CN II-XI grossly intact, no focal neuro deficits Psych: Alert, oriented, appropriate affect Assessment/Plan: 73-year-old male status post 4 vessel coronary artery bypass grafting Transaminitis Coronary artery disease Hypertension Dyslipidemia -Pulmonary note reviewed: Continue with current care -Cardiology note reviewed: Continue current care -CT surgery: Increase metoprolol to 75 mg twice daily -Amiodarone 400 mg twice daily, aspirin 325 mg daily, Lipitor 40 mg daily, Plavix 75 mg daily -Lopressor 75 mg twice daily Acute blood loss anemia, anticipated outcome of surgery -No indication for transfusion at this time -Repeat CBC in a.m. Acute kidney injury, improving - likely multifactorial - follow Cr levels - continue to hold metformin Diabetes mellitus type 2 with neuropathy -Start NovoLog 2 units with meals 3 times daily in addition to sliding scale insulin and Levemir 25 units daily -Hemoglobin A1c 7.5 -Hold metformin, patient is not chronically on insulin -Continue with insulin drip for another 24 hours - follow BS Chronic: History of CVA x 4 History of seizure disorder History of colon cancer in the past Imaging: None new Data Review: Labs reviewed from today include CBC and CMP which are remarkable for hemoglobin of 10.3, BUN 30, creatinine 1.67 Thank you for allowing us to participate in the care of this pleasant patient. Do not hesitate to contact us with questions. Someone can be reached from the [facility] hospitalist group all hours of the day at [phone] or via perfect serve. This dictation was prepared using [employer] voice recognition software. Though every attempt is made to correct errors during dictation some may still exist. Objective - Vital Signs Vital signs: Vital Signs Temp 97.2 F L 06/02/23 12:00 Pulse 84 06/02/23 12:45 Resp 20 06/02/23 12:00 BP 122/70 06/02/23 12:00 Pulse Ox 96 06/02/23 12:00 FiO2 50 05/29/23 16:01 Intake & Output 06/01/23 06/02/23 06/02/23 18:59 06:59 18:59 Intake Total 668 540 Output Total 600 1320 Balance 68 -780 Weight 100.2 kg Intake: IV 0 Lactated Ringers 1,000 ml 0 @ 20 mls/hr IV .Q24H [facility] Rx#:[id number] Oral 668 540 Output: Urine 600 1320 Other: Voiding Method Toilet Toilet # Voids 1 1 # Bowel Movements 1 ABP, PAP, CO, CI - Last Documented Arterial Blood Pressure 107/53 Pulmonary Artery Pressure 20/14 Cardiac Output 5.8 Cardiac Index 2.8 - Labs CBC & Chem 7: 06/02/23 07:02 06/02/23 07:02 Labs: Abnormal Lab Results - Last 24 Hours (Table) 06/01/23 06/01/23 06/01/23 Range/Units 13:58 16:23 20:06 RBC (4.30-5.90) m/uL Hgb (13.0-17.5) gm/dL Hct (39.0-53.0) % Sodium (137-145) mmol/L Carbon Dioxide (22-30) mmol/L BUN (9-20) mg/dL Creatinine (0.66-1.25) mg/dL Glucose (74-99) mg/dL POC Glucose (mg/dL) 193 H 171 H 198 H (70-110) mg/dL AST (17-59) U/L Total Protein (6.3-8.2) g/dL Albumin (3.5-5.0) g/dL 06/02/23 06/02/23 06/02/23 Range/Units 06:05 07:02 07:02 RBC 3.20 L (4.30-5.90) m/uL Hgb 10.3 L (13.0-17.5) gm/dL Hct 30.3 L (39.0-53.0) % Sodium 136 L (137-145) mmol/L Carbon Dioxide 21 L (22-30) mmol/L BUN 30 H (9-20) mg/dL Creatinine 1.67 H (0.66-1.25) mg/dL Glucose 135 H (74-99) mg/dL POC Glucose (mg/dL) 136 H (70-110) mg/dL AST 61 H (17-59) U/L Total Protein 5.7 L (6.3-8.2) g/dL Albumin 3.2 L (3.5-5.0) g/dL 06/02/23 Range/Units 11:42 RBC (4.30-5.90) m/uL Hgb (13.0-17.5) gm/dL Hct (39.0-53.0) % Sodium (137-145) mmol/L Carbon Dioxide (22-30) mmol/L BUN (9-20) mg/dL Creatinine (0.66-1.25) mg/dL Glucose (74-99) mg/dL POC Glucose (mg/dL) 180 H (70-110) mg/dL AST (17-59) U/L Total Protein (6.3-8.2) g/dL Albumin (3.5-5.0) g/dL
[2023-06-02 16:54] LABS: Glucose,Whole Blood 176 mg/dL (70-110)
[2023-06-02 19:56] LABS: Glucose,Whole Blood 224 mg/dL (70-110)
[2023-06-02] MEDS: METOPROLOL TARTRATE 25 MG TAB PO SCH (21:11)
[2023-06-03 02:08] LABS: Glucose,Whole Blood 144 mg/dL (70-110)
[2023-06-03 06:26] LABS: Glucose,Whole Blood 147 mg/dL (70-110)
[2023-06-03 06:28] LABS: HCT 31.9 % (39.0-53.0); HGB 10.1 gm/dL (13.0-17.5); MCH 30.4 pg (25.0-35.0); MCHC 31.7 g/dL (31.0-37.0); Platelet Count 314 k/uL (150-450); RBC 3.33 m/uL (4.30-5.90); RDW 13.2 % (11.5-15.5); WBC 6.6 k/uL (3.8-10.6)
[2023-06-03 06:42] LABS: African American GFR (CKD) 52 (>60 ml/min/1.73 sqM); Anion Gap 8 mmol/L; Blood Urea Nitrogen 26 mg/dL (9-20); Calcium 8.8 mg/dL (8.4-10.2); Carbon Dioxide 21 mmol/L (22-30); Chloride 109 mmol/L (98-107); Glucose 143 mg/dL (74-99); Magnesium 2.1 mg/dL (1.6-2.3); Non-African American GFR(CKD) 45 (>60 ml/min/1.73 sqM); Potassium 4.2 mmol/L (3.5-5.1); Sodium 138 mmol/L (137-145)
--- NOTE | 2023-06-03 07:55 | XR ---
EXAMINATION TYPE: XR chest 1V portable DATE OF EXAM: 06/03/2023 HISTORY: Shortness of breath. COMPARISON: 06/02/2023 TECHNIQUE: Single view of the chest is submitted. FINDINGS: Demonstrated are scattered senescent parenchymal change. Postoperative changes of CABG. There is no evidence for focal infiltrate. The heart is stable. Hilar and mediastinal structures are within normal limits. Degenerative changes are seen of the dorsal spine. IMPRESSION: 1. Chronic changes without evidence for acute pulmonary disease.
--- NOTE | 2023-06-03 09:42 | P.PN ---
Subjective Progress Note Date: 06/03/23 Principal diagnosis: Triple vessel coronary artery disease. 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 POD #5 off pump coronary artery bypass grafting x 3, left internal thoracic artery (in-situ) to left anterior descending coronary artery, radial artery from aorta to obtuse marginal artery, saphenous vein from aorta to posterior descending coronary artery, left atrial appendage ligation using #35mm AtriClip, endoscopic left radial and right greater saphenous vein harvest, graft flow measurements using the MediWound-stim flow meter system, and intraoperative transesophageal echocardiogram. Postoperative acute blood loss anemia, expected given hemodilution. Paroxysmal atrial fibrillation, a known common occurrence after cardiac surgery. Patient was seen and examined in follow-up today June 03, 2023 at his bedside on the third floor cardiac stepdown unit. He is currently sitting up to the bedside chair, is awake, alert, oriented x 3 and is in no acute apparent distress. Denies any complaints of pain or shortness of breath at this time. He reports he continues to ambulate in the cardiac stepdown unit hallway with standby assistance from nursing and therapy staff and tolerating well. Oxygen saturations are 93% on room air and he is achieving 1250 mL on his incentive spirometry with encouragement. Remote telemetry is showing atrial fibrillation heart rate 90 bpm. He remains hemodynamically stable and is currently on no inotropic or pressor support. Chest x-ray and laboratory results were reviewed. Objective - Vital Signs Vital signs: Vital Signs Temp 98.5 F 06/03/23 04:00 Pulse 99 06/03/23 04:00 Resp 16 06/03/23 04:00 BP 116/76 06/03/23 04:00 Pulse Ox 93 L 06/03/23 08:01 FiO2 50 05/29/23 16:01 Intake & Output 06/02/23 06/03/23 06/03/23 18:59 06:59 18:59 Intake Total 660 222 Output Total 1100 750 600 Balance -440 -750 -378 Weight 98.8 kg Intake: Oral 660 222 Output: Urine 1100 750 600 Other: Voiding Method Toilet Toilet # Bowel Movements 1 ABP, PAP, CO, CI - Last Documented Arterial Blood Pressure 107/53 Pulmonary Artery Pressure 20/14 Cardiac Output 5.8 Cardiac Index 2.8 - Exam CONSTITUTIONAL: Sitting up to the bedside chair on the third floor cardiac stepdown unit, appears comfortable, cooperative, no apparent acute distress. HEENT: Neck is supple, no JVD, no lymphadenopathy. RESPIRATORY: Lungs sounds essentially clear throughout, diminished to his bilateral bases. Respirations are symmetrical and nonlabored. Currently on room air with oxygen saturations 93%. Able to achieve 1250 mL on his incentive spirometry. Strong cough. CARDIOVASCULAR: Regular rhythm and rate. S1 and S2 present, negative for S3, gallop or murmur. Remote telemetry showing atrial fibrillation heart rate 90 bpm. Sternum is stable. Palpable peripheral pulses bilaterally, +1 edema to his bilateral lower extremities. No calf pain or tenderness noted. Heart hugger in place with patient demonstrating appropriate use. Knee-high ZAKI hose and sequential compression devices in place to his bilateral lower extremities. GASTROINTESTINAL: Abdomen soft, nontender, nondistended. Active bowel sounds present 4 quadrants. Tolerating diet. Passing flatus. No guarding or rigidity. GENITOURINARY: Continues to void. Urine output 1320 mL in the last 8 hours. INTEGUMENTARY: Skin is warm and dry with no evidence of clubbing or cyanosis. Midline sternal incision clean dry and well approximated, covered with dry intact dressing. Right lower extremity EVH sites well approximated without redness or drainage. Left arm radial artery harvest sites clean, dry and approximated. No drainage or redness is present. NEUROLOGIC: Cranial nerves II through XII intact. Chronic left-sided weakness, residual from previous TIA. MUSKULOSKELETAL: Able to move all extremities, generalized weakness. PSYCHIATRIC: Alert and oriented to person place and time, appropriate affect, intact judgment and insight. - Allied health notes Allied health notes reviewed: nursing - Labs CBC & Chem 7: 06/03/23 05:32 06/03/23 05:32 Labs: Abnormal Lab Results - Last 24 Hours (Table) 06/02/23 06/02/23 06/02/23 Range/Units 07:02 11:42 16:51 RBC (4.30-5.90) m/uL Hgb (13.0-17.5) gm/dL Hct (39.0-53.0) % Sodium 136 L (137-145) mmol/L Chloride (98-107) mmol/L Carbon Dioxide 21 L (22-30) mmol/L BUN 30 H (9-20) mg/dL Creatinine 1.67 H (0.66-1.25) mg/dL Glucose 135 H (74-99) mg/dL POC Glucose (mg/dL) 180 H 176 H (70-110) mg/dL AST 61 H (17-59) U/L Total Protein 5.7 L (6.3-8.2) g/dL Albumin 3.2 L (3.5-5.0) g/dL 06/02/23 06/03/23 06/03/23 Range/Units 19:54 02:06 05:32 RBC 3.33 L (4.30-5.90) m/uL Hgb 10.1 L (13.0-17.5) gm/dL Hct 31.9 L (39.0-53.0) % Sodium (137-145) mmol/L Chloride (98-107) mmol/L Carbon Dioxide (22-30) mmol/L BUN (9-20) mg/dL Creatinine (0.66-1.25) mg/dL Glucose (74-99) mg/dL POC Glucose (mg/dL) 224 H 144 H (70-110) mg/dL AST (17-59) U/L Total Protein (6.3-8.2) g/dL Albumin (3.5-5.0) g/dL 06/03/23 06/03/23 Range/Units 05:32 06:24 RBC (4.30-5.90) m/uL Hgb (13.0-17.5) gm/dL Hct (39.0-53.0) % Sodium (137-145) mmol/L Chloride 109 H (98-107) mmol/L Carbon Dioxide 21 L (22-30) mmol/L BUN 26 H (9-20) mg/dL Creatinine 1.50 H (0.66-1.25) mg/dL Glucose 143 H (74-99) mg/dL POC Glucose (mg/dL) 147 H (70-110) mg/dL AST (17-59) U/L Total Protein (6.3-8.2) g/dL Albumin (3.5-5.0) g/dL - Imaging and Cardiology Chest x-ray: report reviewed, image reviewed Assessment and Plan Assessment: Triple vessel coronary artery disease, status post three-vessel off-pump CABG Hypertension Hyperlipidemia, treated, cholesterol 142, LDL 58, triglycerides 211 Diabetes, preoperative hemoglobin A1c 7.5% TIA x 4, with residual left-sided weakness BPH, currently on Flomax Remote history of tobacco dependence quit smoking 50 years ago, preoperative FEV1 86% of predicted Peripheral neuropathy Colon cancer status post colon resection Family history of premature coronary artery disease, with his dad having coronary artery disease in his mid 50s Postoperative acute blood loss anemia, expected Postoperative paroxysmal atrial fibrillation, a known common occurrence after cardiac surgery, status post left atrial appendage ligation Plan: Continue to maximize medical therapy with aspirin, statin, Plavix, beta-jorge. Will increase his metoprolol to tartrate to 100 mg p.o. twice daily, with hold parameters. Continue low-dose amlodipine for radial artery spasm prophylaxis Continue amiodarone. No anticoagulation at this point, continue Plavix and aspirin. Encourage incentive spirometry use 10 times every hour while awake. Bronchodilators per pulmonology. Increase activity, ambulate as tolerated. PT/OT/cardiac rehab following. Will monitor daily labs and chest x-rays. Electrolyte replacement per protocol. Insulin management per internal medicine. Preoperative hemoglobin A1c 7.5%. Pain control with current medication regimen. GI/DVT prophylaxis. Daily weights. Continue home dose of Flomax. Discharge planning is in place, anticipate discharge home with home health care in the next 24 hours. More recommendations to follow based on patient's clinical course Time with Patient: Greater than 30
[2023-06-03] MEDS: METOPROLOL TARTRATE 50 MG TAB PO SCH (09:43)
--- NOTE | 2023-06-03 10:14 | P.PN ---
Subjective HISTORY OF PRESENT ILLNESS: Patient is status post CABG x 3 vessels. Patient examined this morning. He is sitting up in the chair. His family is present. He denies chest pain or pressure. He denies shortness of breath. He has been ambulating without difficulty. Telemetry reveals atrial fibrillation with heart rates in the low 100s. Blood pressure stable with a recent reading of 124/74. 06/03/2023 Patient examined this morning. Patient is sitting up in the chair. Patient denies chest pain or pressure. He denies shortness of breath. He remains in atrial fibrillation with controlled ventricular rates. Blood pressure stable. PHYSICAL EXAM: VITAL SIGNS: Reviewed. GENERAL: Well-developed in no acute distress. NECK: Supple. No JVD or thyromegaly LUNGS: Respirations even and unlabored. Lungs essentially clear to auscultation bilaterally. HEART: Irregular rate and rhythm. S1 and S2 heard. Heart hugger noted. EXTREMITIES: Normal range of motion. No clubbing or cyanosis. Peripheral pulses intact. Trace bilateral lower extremity edema ASSESSMENT: Coronary artery disease, status post three-vessel CABG Postoperative paroxysmal atrial fibrillation Hypertension Hyperlipidemia History of TIA x 4 with residual left-sided weakness History of colon cancer status post colon resection Former nicotine dependence History of BPH Acute kidney injury PLAN: Continue postoperative management per CT surgery Continue additional cardiac medications Continue telemetry monitoring Increase activity as tolerated Encourage use of incentive spirometer Further recommendations pending patient course Nurse practitioner note has been reviewed by physician. Signing provider agrees with the documented findings, assessment, and plan of care documented by EXPLOSIVE EXPERT as a scribe. Objective - Vital Signs Vital signs: Vital Signs Temp 98.5 F 06/03/23 04:00 Pulse 99 06/03/23 04:00 Resp 16 06/03/23 04:00 BP 116/76 06/03/23 04:00 Pulse Ox 93 L 06/03/23 08:01 FiO2 50 05/29/23 16:01 Intake & Output 06/02/23 06/03/23 06/03/23 18:59 06:59 18:59 Intake Total 660 222 Output Total 1100 750 600 Balance -440 -750 -378 Weight 98.8 kg Intake: Oral 660 222 Output: Urine 1100 750 600 Other: Voiding Method Toilet Toilet # Bowel Movements 1 ABP, PAP, CO, CI - Last Documented Arterial Blood Pressure 107/53 Pulmonary Artery Pressure 20/14 Cardiac Output 5.8 Cardiac Index 2.8 - Labs CBC & Chem 7: 06/03/23 05:32 06/03/23 05:32 Labs: Abnormal Lab Results - Last 24 Hours (Table) 06/02/23 06/02/23 06/02/23 Range/Units 11:42 16:51 19:54 RBC (4.30-5.90) m/uL Hgb (13.0-17.5) gm/dL Hct (39.0-53.0) % Chloride (98-107) mmol/L Carbon Dioxide (22-30) mmol/L BUN (9-20) mg/dL Creatinine (0.66-1.25) mg/dL Glucose (74-99) mg/dL POC Glucose (mg/dL) 180 H 176 H 224 H (70-110) mg/dL 06/03/23 06/03/23 06/03/23 Range/Units 02:06 05:32 05:32 RBC 3.33 L (4.30-5.90) m/uL Hgb 10.1 L (13.0-17.5) gm/dL Hct 31.9 L (39.0-53.0) % Chloride 109 H (98-107) mmol/L Carbon Dioxide 21 L (22-30) mmol/L BUN 26 H (9-20) mg/dL Creatinine 1.50 H (0.66-1.25) mg/dL Glucose 143 H (74-99) mg/dL POC Glucose (mg/dL) 144 H (70-110) mg/dL 06/03/23 Range/Units 06:24 RBC (4.30-5.90) m/uL Hgb (13.0-17.5) gm/dL Hct (39.0-53.0) % Chloride (98-107) mmol/L Carbon Dioxide (22-30) mmol/L BUN (9-20) mg/dL Creatinine (0.66-1.25) mg/dL Glucose (74-99) mg/dL POC Glucose (mg/dL) 147 H (70-110) mg/dL
[2023-06-03 11:42] LABS: Glucose,Whole Blood 134 mg/dL (70-110)
--- NOTE | 2023-06-03 12:02 | P.PN ---
Subjective Progress Note Date: 06/03/23 73-year-old male seen in the intensive care unit, room 260. He just came back from the operating room, having had an off-pump three-vessel bypass surgery, with Dr. Vang. The patient had a BOO to LAD bypass, left radial to obtuse marginal bypass, and SVG to PDA bypass. The patient is on the mechanical ventilator. Ventilator settings include volume assist-control, rate 18, tidal volume 400, FiO2 70%, PEEP of 5. Blood gases show pO2 147, pCO2 of 39, pH is 7.33. The patient's cardiac output is 5.5 with an index of 2.6. The patient is on insulin drip at 1 unit an hour, nitroglycerin at 5 mcg/min, lactated Ringer's at 50 cc an hour, propofol at 25 mcg/kg/min, and amiodarone at 1 mg/min. The jayson oh has a history of hypertension, hyperlipidemia, TIA, with some residual left-sided weakness, diabetes mellitus, BPH, peripheral neuropathy, colon cancer status post colon resection, and a family history of cardiac disease. Current labs include a white count 11.2, hemoglobin 11.2, hematocrit 33.8, and a platelet count is 170,000. Sodium 139, potassium 4, chlorides 112, CO2 16, BUN 21, and creatinine 1.13. Glucose is 136. Albumin is 3.5. His x-ray shows some postsurgical changes, without anything acute. Endotracheal tube is 4 cm above the trav. Progress note dated May 30, 2023. This is a 73-year-old male who is postop day #1, status post off-pump three- vessel bypass surgery. The patient was seen yesterday in the ICU. Currently, he is on 4 L nasal cannula. He is getting lactated Ringer's at 50 cc an hour, and amiodarone at 0.5 mg/min. In addition, he is on an insulin drip at 5.5 units an hour. The patient sitting in a chair next to his bed. Laboratory data includes a white count 11.6, hemoglobin 11.9, hematocrit 36.2, and a normal platelet count. Sodium 137, potassium 4.1, chlorides 110, CO2 18, BUN 18, creatinine 1.16. Glucose is 125. AST is 88 and ALT is 123. Albumin is 3.2. Chest x-rays shows postsurgical changes. The endotracheal tube has been removed . Other lines appear to be in good position. Progress note dated May 31, 2023. 73-year-old male postop day #2, status post off-pump three-vessel bypass surgery. The patient is seen today in room 260. Currently, the patient is on 4 L of oxygen by nasal cannula. The patient is getting lactated Ringer's at 30 cc an hour. In addition, the patient is getting an insulin drip at 7 units an hour, and amiodarone at 0.5 mg/min, as he developed atrial fibrillation with RVR, last night. Current laboratory data includes a white count 11.7, hemoglobin 10.5, hematocrit 32.9, and a platelet count of 166,000. Sodium 133, potassium 4.4, chlorides 107, CO2 19, anion gap 7, BUN 23, creatinine 1.58. G lucose is 149. Albumin is 3. Chest x-ray shows typical postoperative changes, with some basilar atelectasis. Progress note dated June 01, 2023. 73-year-old male who is postop day #3, status post off-pump three-vessel bypass surgery. The patient is seen in room 260. Currently, he is on 3 L of oxygen. He is not receiving any IV fluids. He is getting about 600 cc on his incentive spirometer. He has no specific complaints today. White count is 10.9, hemoglobin 10.5, hematocrit 32.3, with a normal platelet count. Sodium 132, potassium 4, chloride 105, CO2 15, anion gap 12, BUN 29, creatinine 1.75. Glucose is 170. Albumin is 3.3. Chest x-ray shows a stable examination, with some basilar atelectasis. The patient is seen today June 02, 2023 in follow-up on the cardiac care unit. He is currently sitting up in a chair. Awake and alert in no acute distress. He is postoperative day #4. He is currently maintaining good O2 saturations in the 90s on 2 L/min per nasal cannula. He is afebrile. Hemodynamically stable. White count 8.1. Hemoglobin 10.3. Platelets 262. Sodium 136. Potassium 3.9. Bicarb 21. BUN 30. Creatinine 1.67. Glucose 135. Chest x-ray is showing improved atelectasis to the left hilar and left basilar region. Continues to work well with the incentive spirometer. He is continued on bronchodilators. Heparin for DVT prophylaxis. The patient is seen today June 03, 2023 in follow-up on the selective care unit. He is awake and alert in no acute distress. Sitting up in a chair at the bedside. Denies any shortness of breath, cough or congestion. Maintaining good O2 saturations in the 90s on room air. No IV fluids. Chest x-ray continues to show chronic changes without evidence of acute pulmonary process. White count 6.6. Hemoglobin 10.1. Platelets 314. Sodium 138. Potassium 4.2. Bicarb 21. BUN 26. Creatinine 1.50. Glucose 143. He is working well with the incentive spirometer. Continued on bronchodilators. Heparin for DVT prophylaxis. Objective - Vital Signs Vital signs: Vital Signs Temp 97.8 F 06/03/23 08:00 Pulse 90 06/03/23 11:36 Resp 20 06/03/23 08:00 BP 163/88 06/03/23 08:00 Pulse Ox 93 L 06/03/23 08:01 FiO2 50 05/29/23 16:01 Intake & Output 06/02/23 06/03/23 06/03/23 18:59 06:59 18:59 Intake Total 660 222 Output Total 1100 750 600 Balance -440 -750 -378 Weight 98.8 kg Intake: Oral 660 222 Output: Urine 1100 750 600 Other: Voiding Method Toilet Toilet Toilet # Bowel Movements 1 ABP, PAP, CO, CI - Last Documented Arterial Blood Pressure 107/53 Pulmonary Artery Pressure 20/14 Cardiac Output 5.8 Cardiac Index 2.8 - Exam GENERAL EXAM: Alert, very pleasant 73-year-old male patient, up in a chair, on room air, comfortable in no apparent distress. HEAD: Normocephalic. EYES: Normal reaction of pupils, equal size. NOSE: Clear with pink turbinates. THROAT: No erythema or exudates. NECK: No masses, no JVD. CHEST: Sternal incision clean dry well-approximated, dressing intact, heart hugger in place. LUNGS: Equal air entry with no crackles, wheeze, rhonchi or dullness. CVS: S1 and S2 normal with no audible murmur, irregular rhythm. ABDOMEN: No hepatosplenomegaly, normal bowel sounds, no guarding or rigidity. SPINE: No scoliosis or deformity SKIN: No rashes CENTRAL NERVOUS SYSTEM: No focal deficits, tone is normal in all 4 extremities. EXTREMITIES: There is no peripheral edema. No clubbing, no cyanosis. Peripheral pulses are intact. - Labs CBC & Chem 7: 06/03/23 05:32 06/03/23 05:32 Labs: Abnormal Lab Results - Last 24 Hours (Table) 06/02/23 06/02/23 06/03/23 Range/Units 16:51 19:54 02:06 RBC (4.30-5.90) m/uL Hgb (13.0-17.5) gm/dL Hct (39.0-53.0) % Chloride (98-107) mmol/L Carbon Dioxide (22-30) mmol/L BUN (9-20) mg/dL Creatinine (0.66-1.25) mg/dL Glucose (74-99) mg/dL POC Glucose (mg/dL) 176 H 224 H 144 H (70-110) mg/dL 06/03/23 06/03/23 06/03/23 Range/Units 05:32 05:32 06:24 RBC 3.33 L (4.30-5.90) m/uL Hgb 10.1 L (13.0-17.5) gm/dL Hct 31.9 L (39.0-53.0) % Chloride 109 H (98-107) mmol/L Carbon Dioxide 21 L (22-30) mmol/L BUN 26 H (9-20) mg/dL Creatinine 1.50 H (0.66-1.25) mg/dL Glucose 143 H (74-99) mg/dL POC Glucose (mg/dL) 147 H (70-110) mg/dL 06/03/23 Range/Units 11:36 RBC (4.30-5.90) m/uL Hgb (13.0-17.5) gm/dL Hct (39.0-53.0) % Chloride (98-107) mmol/L Carbon Dioxide (22-30) mmol/L BUN (9-20) mg/dL Creatinine (0.66-1.25) mg/dL Glucose (74-99) mg/dL POC Glucose (mg/dL) 134 H (70-110) mg/dL Assessment and Plan Assessment: Postop day #5, status post off-pump three-vessel bypass surgery Routine postoperative ventilator management, with successful extubation on May 29, 2023 stable and on room air History of hypertension History of hyperlipidemia History of type 2 diabetes mellitus History of TIA x 4, with residual left-sided weakness History of BPH History of peripheral neuropathy History of colon cancer, status post colon resection Plan: The patient was seen and evaluated Chest x-ray, labs and medications reviewed Stable and on room air Working well with the incentive spirometer Continued on bronchodilators Heparin for DVT prophylaxis His activity as tolerated Home once cleared by CT services I have personally seen and examined the patient, performed the documentation and the assessment and plan as written. Number of minutes spent on the visit: 10.
--- NOTE | 2023-06-03 13:51 | P.PN ---
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 Patient tolerated the procedure well without any immediate postoperative complications. Patient was admitted to the ICU and was extubateda t 5 hours. Patient seen and examined at bedside. Denies any chest pain, shortness of breath. Appetite is kicking back in. present at bedside all questions answered. Will continue with IV insulin and hope to resume metformin tomorrow. Made aware that he may need an additional oral medication at discharge to continue to control blood sugars in the postoperative period. Vital signs reviewed General: Nontoxic, due to pain after getting up to chair, appears at stated age Cardiovascular: S1S2 reg, no murmur [place] in place, mediastinal and thoracic chest tubes in place Lungs: Decreased breath sounds bilateral, no rhonchi, no rales, no accessory muscle use Abdominal: Soft, nontender to palpation, no guarding Ext: No gross muscle atrophy, trace edema b/l lower extremities, no contractures Neuro: CN II-XI grossly intact, no focal neuro deficits Psych: Alert, oriented, appropriate affect Assessment/Plan: 73-year-old male status post 4 vessel coronary artery bypass grafting Transaminitis Coronary artery disease Hypertension Dyslipidemia -CT surgery note reviewed possible discharge in a.m. -Cardiology note reviewed: Continue current care plan -pulmonary note reviewed: Continue current care. -Amiodarone 400 mg twice daily, aspirin 325 mg daily, Lipitor 40 mg daily, Plavix 75 mg daily -Lopressor 75 mg twice daily Acute blood loss anemia, anticipated outcome of surgery -No indication for transfusion at this time -Repeat CBC in a.m. Acute kidney injury, improving - likely multifactorial - follow Cr levels Diabetes mellitus type 2 with neuropathy -Creatinine is decreasing today. Will resume metformin 500 mg tonight with dinner. Hope to increase to 850 tomorrow if renal function continues to improve. -Blood sugars with improved control decrease Levemir to 15 units tomorrow - NovoLog 2 units with meals 3 times daily in addition to sliding scale insulin -Hemoglobin A1c 7.5 - follow BS Chronic: History of CVA x 4 History of seizure disorder History of colon cancer in the past Imaging: None new Data Review: Labs reviewed today include CBC and basic metabolic profile which were remarkable for hemoglobin 10.1, chloride 109, BUN 26, creatinine 1.5 Thank you for allowing us to participate in the care of this pleasant patient. Do not hesitate to contact us with questions. Someone can be reached from the [facility] hospitalist group all hours of the day at [phone] or via perfect serve. This dictation was prepared using [employer] voice recognition software. Though every attempt is made to correct errors during dictation some may still exist. Objective - Vital Signs Vital signs: Vital Signs Temp 97.8 F 06/03/23 08:00 Pulse 90 06/03/23 11:36 Resp 20 06/03/23 08:00 BP 163/88 06/03/23 08:00 Pulse Ox 93 L 06/03/23 08:01 FiO2 50 05/29/23 16:01 Intake & Output 06/02/23 06/03/23 06/03/23 18:59 06:59 18:59 Intake Total 660 340 Output Total 1100 750 600 Balance -440 -750 -260 Weight 98.8 kg Intake: Oral 660 340 Output: Urine 1100 750 600 Other: Voiding Method Toilet Toilet Toilet # Bowel Movements 1 ABP, PAP, CO, CI - Last Documented Arterial Blood Pressure 107/53 Pulmonary Artery Pressure 20/14 Cardiac Output 5.8 Cardiac Index 2.8 - Labs CBC & Chem 7: 06/03/23 05:32 06/03/23 05:32 Labs: Abnormal Lab Results - Last 24 Hours (Table) 06/02/23 06/02/23 06/03/23 Range/Units 16:51 19:54 02:06 RBC (4.30-5.90) m/uL Hgb (13.0-17.5) gm/dL Hct (39.0-53.0) % Chloride (98-107) mmol/L Carbon Dioxide (22-30) mmol/L BUN (9-20) mg/dL Creatinine (0.66-1.25) mg/dL Glucose (74-99) mg/dL POC Glucose (mg/dL) 176 H 224 H 144 H (70-110) mg/dL 06/03/23 06/03/23 06/03/23 Range/Units 05:32 05:32 06:24 RBC 3.33 L (4.30-5.90) m/uL Hgb 10.1 L (13.0-17.5) gm/dL Hct 31.9 L (39.0-53.0) % Chloride 109 H (98-107) mmol/L Carbon Dioxide 21 L (22-30) mmol/L BUN 26 H (9-20) mg/dL Creatinine 1.50 H (0.66-1.25) mg/dL Glucose 143 H (74-99) mg/dL POC Glucose (mg/dL) 147 H (70-110) mg/dL 06/03/23 Range/Units 11:36 RBC (4.30-5.90) m/uL Hgb (13.0-17.5) gm/dL Hct (39.0-53.0) % Chloride (98-107) mmol/L Carbon Dioxide (22-30) mmol/L BUN (9-20) mg/dL Creatinine (0.66-1.25) mg/dL Glucose (74-99) mg/dL POC Glucose (mg/dL) 134 H (70-110) mg/dL
[2023-06-03 16:26] LABS: Glucose,Whole Blood 155 mg/dL (70-110)
[2023-06-03] MEDS: metFORMIN 500 MG TAB PO SCH (17:22)
[2023-06-03 20:02] LABS: Glucose,Whole Blood 140 mg/dL (70-110)
[2023-06-04 06:03] LABS: Glucose,Whole Blood 137 mg/dL (70-110)
[2023-06-04] MEDS: INSULIN DETEMIR (LEVEMIR) 100 UNIT/ML SYR SQ SCH (06:59)
--- NOTE | 2023-06-04 08:07 | XR ---
EXAMINATION TYPE: XR chest 2V DATE OF EXAM: 06/04/2023 COMPARISON: 06/03/2023 TECHNIQUE: PA and lateral views submitted. HISTORY: Postop CABG FINDINGS: Postoperative changes stable. Bilateral consolidation and small effusion. Tiny bilateral apical less than 5% pneumothorax noted. Heart is enlarged. IMPRESSION: 1. Tiny less than 5% biapical pneumothorax 2. Bilateral lower lobe infiltrate and small pleural effusion..
[2023-06-04 08:44] VITALS: RESP 18
[2023-06-04 09:02] LABS: HCT 34.8 % (39.0-53.0); HGB 10.9 gm/dL (13.0-17.5); MCH 30.2 pg (25.0-35.0); MCHC 31.3 g/dL (31.0-37.0); MCV 96.5 fL (80.0-100.0); Platelet Count 430 k/uL (150-450); RDW 13.5 % (11.5-15.5); WBC 9.4 k/uL (3.8-10.6)
[2023-06-04 09:26] VITALS: PULSE 92
[2023-06-04 09:28] LABS: African American GFR (CKD) 54 (>60 ml/min/1.73 sqM); Anion Gap 13 mmol/L; Blood Urea Nitrogen 26 mg/dL (9-20); Calcium 9.5 mg/dL (8.4-10.2); Carbon Dioxide 18 mmol/L (22-30); Chloride 108 mmol/L (98-107); Glucose 153 mg/dL (74-99); Non-African American GFR(CKD) 46 (>60 ml/min/1.73 sqM); Potassium 4.3 mmol/L (3.5-5.1); Sodium 139 mmol/L (137-145)
--- NOTE | 2023-06-04 10:20 | P.PN ---
Subjective Progress Note Date: 06/04/23 Principal diagnosis: Triple vessel coronary artery disease. 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 POD #6 off pump coronary artery bypass grafting x 3, left internal thoracic artery (in-situ) to left anterior descending coronary artery, radial artery from aorta to obtuse marginal artery, saphenous vein from aorta to posterior descending coronary artery, left atrial appendage ligation using #35mm AtriClip, endoscopic left radial and right greater saphenous vein harvest, graft flow measurements using the Saavn-stim flow meter system, and intraoperative transesophageal echocardiogram. Postoperative acute blood loss anemia, expected given hemodilution. Paroxysmal atrial fibrillation, a known common occurrence after cardiac surgery. The patient was seen and examined in follow-up today June 04, 2023 at his bedside on the third floor cardiac stepdown unit. The patient is currently sitting up to the bedside chair, is awake, alert, oriented x 3 and is in no acute apparent distress. Denies any complaints of pain or shortness of breath at this time. He has been up ambulating in the cardiac stepdown unit hallway with standby assistance from nursing and therapy staff and tolerating well. He does report that he does have some shortness of breath with activity but with a short rest recovers quickly. Oxygen saturations are 95% on room air and he is achieving 1500 mL on his incentive spirometry with encouragement. Remote telemetry is showing normal sinus rhythm heart rate 77 bpm. He remains hemodynamically stable and is currently on no inotropic or pressor support. Chest x-ray and laboratory results were reviewed. Discharge planning is in place. Objective - Vital Signs Vital signs: Vital Signs Temp 97.8 F 06/04/23 04:00 Pulse 92 06/04/23 08:00 Resp 18 06/04/23 08:00 BP 117/67 06/04/23 08:00 Pulse Ox 95 06/04/23 09:29 FiO2 50 05/29/23 16:01 Intake & Output 06/03/23 06/04/23 06/04/23 18:59 06:59 18:59 Intake Total 580 360 Output Total 600 1300 Balance -20 -1300 360 Weight 98.4 kg Intake: Oral 580 360 Output: Urine 600 1300 Other: Voiding Method Toilet Toilet ABP, PAP, CO, CI - Last Documented Arterial Blood Pressure 107/53 Pulmonary Artery Pressure 20/14 Cardiac Output 5.8 Cardiac Index 2.8 - Exam CONSTITUTIONAL: Sitting up to the bedside chair on the third floor cardiac stepdown unit, appears comfortable, cooperative, no apparent acute distress. HEENT: Neck is supple, no JVD, no lymphadenopathy. RESPIRATORY: Lungs sounds essentially clear throughout, diminished to his bilateral bases. Respirations are symmetrical and nonlabored. Currently on room air with oxygen saturations 95%. Able to achieve 1500 mL on his incentive spirometry. Strong cough. CARDIOVASCULAR: Regular rhythm and rate. S1 and S2 present, negative for S3, gallop or murmur. Remote telemetry showing normal sinus rhythm heart rate 77 bpm. Sternum is stable. Palpable peripheral pulses bilaterally, +1 edema to his bilateral lower extremities. No calf pain or tenderness noted. Heart hugger in place with patient demonstrating appropriate use. Knee-high ZAKI hose and sequential compression devices in place to his bilateral lower extremities. GASTROINTESTINAL: Abdomen soft, nontender, nondistended. Active bowel sounds present 4 quadrants. Tolerating diet. Passing flatus. No guarding or rigidity. Bowel movement on 06/02/2023 GENITOURINARY: Continues to void. Urine output 1300 mL in the last 8 hours. INTEGUMENTARY: Skin is warm and dry with no evidence of clubbing or cyanosis. Midline sternal incision clean dry and well approximated, covered with dry intact dressing. Right lower extremity EVH sites well approximated without redness or drainage. Left arm radial artery harvest sites clean, dry and approximated. No drainage or redness is present. NEUROLOGIC: Cranial nerves II through XII intact. Chronic left-sided weakness, residual from previous TIA. MUSKULOSKELETAL: Able to move all extremities, generalized weakness. PSYCHIATRIC: Alert and oriented to person place and time, appropriate affect, intact judgment and insight. - Allied health notes Allied health notes reviewed: nursing - Labs CBC & Chem 7: 06/04/23 08:06 06/04/23 08:06 Labs: Abnormal Lab Results - Last 24 Hours (Table) 06/03/23 06/03/2306/02/24 Range/Units 11:36 16:24 20:01 RBC (4.30-5.90) m/uL Hgb (13.0-17.5) gm/dL Hct (39.0-53.0) % Chloride (98-107) mmol/L Carbon Dioxide (22-30) mmol/L BUN (9-20) mg/dL Creatinine (0.66-1.25) mg/dL Glucose (74-99) mg/dL POC Glucose (mg/dL) 134 H 155 H 140 H (70-110) mg/dL 06/04/23 06/04/23 06/04/23 Range/Units 05:58 08:06 08:06 RBC 3.60 L (4.30-5.90) m/uL Hgb 10.9 L (13.0-17.5) gm/dL Hct 34.8 L (39.0-53.0) % Chloride 108 H (98-107) mmol/L Carbon Dioxide 18 L (22-30) mmol/L BUN 26 H (9-20) mg/dL Creatinine 1.46 H (0.66-1.25) mg/dL Glucose 153 H (74-99) mg/dL POC Glucose (mg/dL) 137 H (70-110) mg/dL - Imaging and Cardiology Chest x-ray: report reviewed, image reviewed Assessment and Plan Assessment: Triple vessel coronary artery disease, status post three-vessel off-pump CABG Hypertension Hyperlipidemia, treated, cholesterol 142, LDL 58, triglycerides 211 Diabetes, preoperative hemoglobin A1c 7.5% TIA x 4, with residual left-sided weakness BPH, currently on Flomax Remote history of tobacco dependence quit smoking 50 years ago, preoperative FEV1 86% of predicted Peripheral neuropathy Colon cancer status post colon resection Family history of premature coronary artery disease, with his dad having coronary artery disease in his mid 50s Postoperative acute blood loss anemia, expected Postoperative paroxysmal atrial fibrillation, a known common occurrence after cardiac surgery, status post left atrial appendage ligation Plan: Continue to maximize medical therapy with aspirin, statin, Plavix, beta-jorge. Will increase his beta-jorge as tolerated. Continue low-dose amlodipine for radial artery spasm prophylaxis Continue amiodarone. No anticoagulation at this point, continue Plavix and aspirin. Encourage incentive spirometry use 10 times every hour while awake. Bron chodilators per pulmonology. Increase activity, ambulate as tolerated. PT/OT/cardiac rehab following. Will monitor daily labs and chest x-rays. Electrolyte replacement per protocol. Insulin management per internal medicine. Preoperative hemoglobin A1c 7.5%. Pain control with current medication regimen. GI/DVT prophylaxis. Daily weights. Discharge planning is in place, anticipate discharge home with home health care in the next 24 hours. More recommendations to follow based on patient's clinical course Time with Patient: Greater than 30
[2023-06-04 12:00] LABS: Glucose,Whole Blood 136 mg/dL (70-110)
[2023-06-04 13:43] VITALS: BP 131/69; TEMP 97.5
--- NOTE | 2023-06-04 13:58 | P.PN ---
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 Patient tolerated the procedure well without any immediate postoperative complications. Patient was admitted to the ICU and was extubateda t 5 hours. Patient seen and examined at bedside. Doing well, pain controlled. Can afford $31 monthy for Jardiance and has a glucometer at home. All questions answered. Vital signs reviewed General: Nontoxic, due to pain after getting up to chair, appears at stated age Cardiovascular: S1S2 reg, no murmur [place] in place, mediastinal and thoracic chest tubes in place Lungs: Decreased breath sounds bilateral, no rhonchi, no rales, no accessory muscle use Abdominal: Soft, nontender to palpation, no guarding Ext: No gross muscle atrophy, trace edema b/l lower extremities, no contractures Neuro: CN II-XI grossly intact, no focal neuro deficits Psych: Alert, oriented, appropriate affect Assessment/Plan: 73-year-old male status post 4 vessel coronary artery bypass grafting Transaminitis Coronary artery disease Hypertension Dyslipidemia -D/W CT surgery and plan is for discharge today -Amiodarone 400 mg twice daily, aspirin 325 mg daily, Lipitor 40 mg daily, Plavix 75 mg daily -Lopressor 75 mg twice daily Acute blood loss anemia, anticipated outcome of surgery - stable Acute kidney injury, improving - likely multifactorial - follow Cr levels Diabetes mellitus type 2 with neuropathy - Cr is less than 1.5, will restart metformin 850 mg PO BID and then will add Jardiance 10 mg daily - Will check BS 2X daily for the next 7 days and then once daiy - follow with PCP next week -Hemoglobin A1c 7.5 - follow BS Chronic: History of CVA x 4 History of seizure disorder History of colon cancer in the past Imaging: None new Data Review: Labs reviewed from today include CBC and basic metabolic profile which are remarkable for hemoglobin 10.9, carbon dioxide 18, anion gap 13, BUN 26, creatinine 1.46 Thank you for allowing us to participate in the care of this pleasant patient. Do not hesitate to contact us with questions. Someone can be reached from the [facility] hospitalist group all hours of the day at [phone] or via perfect serve. This dictation was prepared using [employer] voice recognition software. Though every attempt is made to correct errors during dictation some may still exist. Objective - Vital Signs Vital signs: Vital Signs Temp 97.5 F L 06/04/23 12:00 Pulse 92 06/04/23 12:27 Resp 18 06/04/23 12:27 BP 131/69 06/04/23 12:00 Pulse Ox 96 06/04/23 12:00 FiO2 50 05/29/23 16:01 Intake & Output 06/03/23 06/04/23 06/04/23 18:59 06:59 18:59 Intake Total 580 360 Output Total 600 1300 Balance -20 -1300 360 Weight 98.4 kg Intake: Oral 580 360 Output: Urine 600 1300 Other: Voiding Method Toilet Toilet ABP, PAP, CO, CI - Last Documented Arterial Blood Pressure 107/53 Pulmonary Artery Pressure 20/14 Cardiac Output 5.8 Cardiac Index 2.8 - Labs CBC & Chem 7: 06/04/23 08:06 06/04/23 08:06 Labs: Abnormal Lab Results - Last 24 Hours (Table) 06/03/23 06/03/23 06/04/23 Range/Units 16:24 20:01 05:58 RBC (4.30-5.90) m/uL Hgb (13.0-17.5) gm/dL Hct (39.0-53.0) % Chloride (98-107) mmol/L Carbon Dioxide (22-30) mmol/L BUN (9-20) mg/dL Creatinine (0.66-1.25) mg/dL Glucose (74-99) mg/dL POC Glucose (mg/dL) 155 H 140 H 137 H (70-110) mg/dL 06/04/23 06/04/23 06/04/23 Range/Units 08:06 08:06 11:58 RBC 3.60 L (4.30-5.90) m/uL Hgb 10.9 L (13.0-17.5) gm/dL Hct 34.8 L (39.0-53.0) % Chloride 108 H (98-107) mmol/L Carbon Dioxide 18 L (22-30) mmol/L BUN 26 H (9-20) mg/dL Creatinine 1.46 H (0.66-1.25) mg/dL Glucose 153 H (74-99) mg/dL POC Glucose (mg/dL) 136 H (70-110) mg/dL
--- NOTE | 2023-06-04 14:01 | P.DS ---
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 Consult: post cardiac surgery Do you want consulting provider notified?: Yes Primary care physician: Stated None Hospital Course: FINAL DIAGNOSIS: Triple vessel coronary artery disease, status post three-vessel off-pump CABG Hypertension Hyperlipidemia, treated, cholesterol 142, LDL 58, triglycerides 211 Diabetes, preoperative hemoglobin A1c 7.5% TIA x 4, with chronic residual left-sided weakness BPH, currently on Flomax Remote history of tobacco dependence quit smoking 50 years ago, preoperative FEV1 86% of predicted Peripheral neuropathy Colon cancer status post colon resection Family history of premature coronary artery disease, with his dad having coronary artery disease in his mid 50s Postoperative acute blood loss anemia, expected Postoperative paroxysmal atrial fibrillation, a known common occurrence after cardiac surgery, status post left atrial appendage ligation PRINCIPAL PROCEDURE: 1. Off pump coronary artery bypass grafting x 4. Left internal thoracic artery (in-situ) to left anterior descending coronary artery. Radial artery from aorta to obtuse marginal artery. Saphenous vein from aorta to posterior descending coronary artery 2. Left atrial appendage ligation using #35mm AtriClip 3. Endoscopic left radial and right greater saphenous vein harvest 4. Graft flow measurements using the medi-stim flow meter system 5. Intraoperative transesophageal echocardiogram completed by anesthesia HISTORY OF PRESENT ILLNESS: This is a 73-year-old gentleman who follows on an outpatient basis for his primary care service with Dr. Teodoro Fisher and with Dr. Bernard for his cardiology care. Recently, the patient has had complaints of heartburn, feeling fatigued and shortness of breath with activity. Due to the patient's family history of early onset coronary artery disease and his symptoms he underwent a nuclear Lexiscan Cardiolite stress test which was completed on March 28, 2023 which showed abnormal Lexiscan stress test with inducible inferior and inferior lateral ischemia with a normal left ventricular ejection fraction of 55%. For further evaluation the patient underwent a transthoracic 2D echocardiogram completed on March 29, 2023 which showed a normal left ventricular size and systolic function with an ejection fraction of 55%, mild mitral valve regurgitation, mild mitral annular calcification, trace aortic valve regurgitation, mild to moderate tricuspid valve regurgitation, trace pulmonic valve regurgitation and moderately increased pulmonary artery systolic pressure of 57 mmHg. Subsequently due to the patient's symptoms he was recommended to undergo a cardiac catheterization which was completed on May 16, [address] Bernard. The cardiac catheterization results demonstrated a 90% stenosis to his distal left main coronary artery, a 90% ostial LAD stenosis, a 40 to 50% stenosis to his mid left anterior descending coronary artery, a 90% ostial circumflex stenosis and a 100% stenosis to his mid right coronary artery with right to right collaterals. The cardiac catheterization results were reviewed with the patient by Dr. Bernard and due to the triple-vessel disease with left main disease a consult was placed to Dr. Khai Vang from cardiothoracic surgery for further evaluation and treatment recommendations including myocardial vascularization surgery. Dr. Vang discussed treatment options with the patient and his including the surgical option. Risks and benefits of surgery were discussed with the patient including the STS risk score and knowing and understanding the risks the patient wished to proceed with the surgical option. HOSPITAL COURSE: The patient was brought to the hospital on 05/29/23, taken to the preoperative area, prepared in the usual fashion, and subsequently taken to the operating room where Dr. Vang performed an off-pump coronary artery bypass grafting x 4. Upon completion of surgery the patient was transferred to the cardiovascular intensive care unit where he was recovered and monitored hemodynamically. He was extubated, all lines, tubes, and drips were discontinued when appropriate, and he was transferred to [facility] cardiac stepdown unit for further monitoring and rehabilitation. His oxygen was titrated down, he continued to work with physical and occupational therapy, he was tolerating an oral diet, his pain was controlled, and he was ready to be discharged to home with [facility] home health care on postoperative day #6. He received written and verbal instruction regarding his medications, activity restrictions, importance of risk modification including continued smoking cessation, signs and symptoms requiring physician notification, and his follow-up appointments. Plan - Discharge Summary Discharge Rx Participant: No New Discharge Prescriptions: New Aspirin 325 mg PO DAILY #30 tab Atorvastatin [Lipitor] 40 mg PO DAILY #30 tab Metoprolol Tartrate [Lopressor] 100 mg PO BID #120 tab Acetaminophen Tab [Tylenol] 1,000 mg PO Q6HR PRN tab PRN Reason: Fever And/ Or Pain Empagliflozin [Jardiance] 10 mg PO DAILY #30 tab Amiodarone [Cordarone] 400 mg PO BID #27 tab amLODIPine [Norvasc] 5 mg PO DAILY@1200 #30 tab Pantoprazole [Protonix] 40 mg PO AC-BRKFST #30 tab Continue Tamsulosin [Flomax] 0.4 mg PO HS Clopidogrel Bisulfate [Clopidogrel] 75 mg PO QAM Super B Complex 1 tab PO QAM Gabapentin 300 mg PO BID Cholecalciferol [Vitamin D3 (25 Mcg = 1000 Iu)] 25 mcg PO QAM metFORMIN HCL [Glucophage] 850 mg PO BID-W/MEALS Discontinued Losartan Potassium 100 mg PO QAM amLODIPine BESYLATE 10 mg PO QAM Enoxaparin Sodium 100 mg SQ BID Metoprolol Succinate (ER) [Toprol XL] 25 mg PO DIRECTED Discharge Medication List Cholecalciferol [Vitamin D3 (25 Mcg = 1000 Iu)] 25 mcg PO QAM 05/14/23 [History] Clopidogrel Bisulfate [Clopidogrel] 75 mg PO QAM 05/14/23 [History] Gabapentin 300 mg PO BID 05/14/23 [History] Super B Complex 1 tab PO QAM 05/14/23 [History] Tamsulosin [Flomax] 0.4 mg PO HS 05/14/23 [History] metFORMIN HCL [Glucophage] 850 mg PO BID-W/MEALS 05/14/23 [History] Acetaminophen Tab [Tylenol] 1,000 mg PO Q6HR PRN tab 06/04/23 [Rx] Amiodarone [Cordarone] 400 mg PO BID #27 tab 06/04/23 [Rx] Aspirin 325 mg PO DAILY #30 tab 06/04/23 [Rx] Atorvastatin [Lipitor] 40 mg PO DAILY #30 tab 06/04/23 [Rx] Empagliflozin [Jardiance] 10 mg PO DAILY #30 tab 06/04/23 [Rx] Metoprolol Tartrate [Lopressor] 100 mg PO BID #120 tab 06/04/23 [Rx] Pantoprazole [Protonix] 40 mg PO AC-BRKFST #30 tab 06/04/23 [Rx] amLODIPine [Norvasc] 5 mg PO DAILY@1200 #30 tab 06/04/23 [Rx] Follow up Appointment(s)/Referral(s): Rehab [facility],Cardiac [NON-STAFF] - 4 Weeks Timmy Bernard DO [STAFF PHYSICIAN] - 06/14/23 8:45 am Teodoro Fisher DO [REFERRING] - 06/11/23 1:00 pm Brett Solis NPC [Nurse Practitioner] - 06/13/23 11:15 am (Please follow-up at [address] [place] [address]. 1, [place], [place], [address], office number is [phone]) Richard Romero DO [Doctor of Osteopathic Medicine] - 06/27/23 2:15 pm [facility] [NON-STAFF] - 1-2 Days ([facility] will call you to arrange a visit) Khai Vang MD [STAFF PHYSICIAN] - 06/21/23 12:00 pm Ambulatory/Diagnostic Orders: Complete Blood Count w/diff [LAB.AMB] Time Frame: 06/07/23, Facility: [facility], Location: Laboratory [facility] Comprehensive Metabolic Panel [LAB.AMB] Time Frame: 06/07/23, Facility: [facility], Location: [facility] Activity/Diet/Wound Care/Special Instructions: DISCHARGE INSTRUCTIONS: 1. No driving for 4 weeks, or until physician gives their ok. 2. The patient should sleep in their own bed, no medical bed needed. 3. Stairs are not an issue. If the bedroom is upstairs, it is advised that the patient go up at night and down in the morning for the first week. Go slowly, using handrail and take 1 step at a time. 4. ZAKI hose are to be worn for 30 days post surgery or until physician discontinues. 5. Heart hugger is to be worn 100% of the time until physician discontinues.(except when showering) 6. No lifting, pushing, or pulling more than 10 pounds for 12 weeks. The physician will advise of any restriction changes. 7. The patient is expected to continue the prescribed walking program. 8. Continue pain control per as needed orders. 9. Continue with incentive spirometry and splinting/heart hugger until otherwise directed by the physician. 10. Must shower daily using liquid antibacterial soap 11. Routine sternal incision care. No powders, lotions, ointments on incisions. No dressings are necessary on incisions unless they are draining. Dermabond tape is to remain on sternal incision until surgeon follow-up. 12. Please call surgeon/RADIO STATION AUDIO ENGINEER for temp greater than 101 F or purulent drainage from incisions. 13. You should weigh yourself daily, record and bring log with you to follow up appointments. 14. All prescriptions given by surgeon for 30 days. Refills need to be filled through biological engineer/primary care physician. 15. A Red armband has been placed on the patient. It should be worn for 30 days post discharge from surgery and will be removed by the cardiac surgeons. If an ER visit is necessary, please make sure the number on the Red armband is called before going to ER. 16. You have been referred to and are expected to begin Cardiac Rehab in approximately 4-6 weeks. 17. Check blood sugar twice daily for the next 7 day once in the orning before eating and once in the afternoon, you can then go back to checking once daily. Please make a log to bring to your family doctor appointment. 18. Quitting smoking is the most important step you can take to improve your health. For additional information and assistance to quit smoking, please call the [place] tobacco quit line (1-722-VVOG-NOW/ ) or online: htt [email or web address].[place].gov/[email or web address]-wb-[email or web address]/[email or web address]/tobacco/mda-hg-lxgn- tobacco HOME HEALTH SERVICES TO PROVIDE: RN SKILLED HOME CARE SERVICES FOR POST-OP SURGICAL PATIENTS WITH THE FOLLO WING: Coronary Artery Bypass Surgery (CABG), Mitral Valve Replacement/Repair ( MVR), Aortic Valve Replacement/Repair (AVR) RN TO CONTINUE EDUCATION FROM ``ROAD TO A HEALTH HEART PATIENT EDUCATION CODI METZ (GIVEN TO PATIENT IN THE HOSPITAL) MEDICATION RECONCILIATION WITH EDUCATION NEEDED ON FIRST HOME VISIT EMPHASIZE IMPORTANCE OF WEARING BREAST SUPPORT/HEART HUGGER ENCOURAGE USE OF INCENTIVE SPIROMETER 10 X EVERY HOUR WHILE AWAKE ENCOURAGE UTILIZATION OF LOWER EXTREMITY COMPRESSION STOCKINGS/ZAKI HOSE and ELEVATE LEGS ABOVE LEVEL OF HEART WHILE AT REST. ENCOURAGE AMBULATION 3-5x/day INCREASING TOLERATES, WHILE AVOIDING EXTREMES IN TEMPERATURE FREQUENCY: RN TO OPEN THE PATIENT WITHIN 24 HOURS OF DISCHARGE FROM THE HOSPITAL WITH TELEHEALTH INSTALLED AT [facility] [place], [place] TO VISIT 2-3 X A WEEK FOR 4 WEEKS ESTABLISHED BY PATIENT NEEDS. LABORATORY: CBC, CMP TO BE DRAWN ON THE THIRD DAY HOME, (RAN STAT) FAX RESULTS TO [phone]. TELEHEALTH PARAMETERS: WEIGHT: NOTIFY MD OF WEIGHT GAIN OF 2 LBS IN 24 HOURS OR 5 LBS IN ONE WEEK HR: NOTIFY MD OF HR <55 BPM OR HR>100 BPM BP: NOTIFY MD IF BP <90/55 OR BP>140/100 O2 SAT: NOTIFY MD IF PO2<93% ON ROOM AIR SEND TELEHEALTH REPORT TO AERONAUTICAL DESIGN ENGINEER AND CARDIOVASCULAR SURGEON THE FIRST WEEK OF CARE AND THEN BI-WEEKLY. PLEASE ADDITIONALLY COMMUNICATE ANY ABNORMALS AND NEW FINDINGS TO THE SURGEONS OFFICE. Discharge Disposition: HOME WITH HOME HEALTH SERVICES
--- NOTE | 2023-06-04 16:56 | P.PN ---
Subjective Progress Note Date: 06/04/23 73-year-old male seen in the intensive care unit, room 260. He just came back from the operating room, having had an off-pump three-vessel bypass surgery, with Dr. Vang. The patient had a BOO to LAD bypass, left radial to obtuse marginal bypass, and SVG to PDA bypass. The patient is on the mechanical ventilator. Ventilator settings include volume assist-control, rate 18, tidal volume 400, FiO2 70%, PEEP of 5. Blood gases show pO2 147, pCO2 of 39, pH is 7.33. The patient's cardiac output is 5.5 with an index of 2.6. The patient is on insulin drip at 1 unit an hour, nitroglycerin at 5 mcg/min, lactated Ringer's at 50 cc an hour, propofol at 25 mcg/kg/min, and amiodarone at 1 mg/min. The p atient has a history of hypertension, hyperlipidemia, TIA, with some residual left-sided weakness, diabetes mellitus, BPH, peripheral neuropathy, colon cancer status post colon resection, and a family history of cardiac disease. Current labs include a white count 11.2, hemoglobin 11.2, hematocrit 33.8, and a platelet count is 170,000. Sodium 139, potassium 4, chlorides 112, CO2 16, BUN 21, and creatinine 1.13. Glucose is 136. Albumin is 3.5. His x-ray shows some postsurgical changes, without anything acute. Endotracheal tube is 4 cm above the trav. Progress note dated May 30, 2023. This is a 73-year-old male who is postop day #1, status post off-pump three- vessel bypass surgery. The patient was seen yesterday in the ICU. Currently, he is on 4 L nasal cannula. He is getting lactated Ringer's at 50 cc an hour, and amiodarone at 0.5 mg/min. In addition, he is on an insulin drip at 5.5 units an hour. The patient sitting in a chair next to his bed. Laboratory data includes a white count 11.6, hemoglobin 11.9, hematocrit 36.2, and a normal platelet count. Sodium 137, potassium 4.1, chlorides 110, CO2 18, BUN 18, creatinine 1.16. Glucose is 125. AST is 88 and ALT is 123. Albumin is 3.2. Chest x-rays shows postsurgical changes. The endotracheal tube has been remove d. Other lines appear to be in good position. Progress note dated May 31, 2023. 73-year-old male postop day #2, status post off-pump three-vessel bypass surgery. The patient is seen today in room 260. Currently, the patient is on 4 L of oxygen by nasal cannula. The patient is getting lactated Ringer's at 30 cc an hour. In addition, the patient is getting an insulin drip at 7 units an hour, and amiodarone at 0.5 mg/min, as he developed atrial fibrillation with RVR, last night. Current laboratory data includes a white count 11.7, hemoglobin 10.5, hematocrit 32.9, and a platelet count of 166,000. Sodium 133, potassium 4.4, chlorides 107, CO2 19, anion gap 7, BUN 23, creatinine 1.58. Glucose is 149. Albumin is 3. Chest x-ray shows typical postoperative changes, with some basilar atelectasis. Progress note dated June 01, 2023. 73-year-old male who is postop day #3, status post off-pump three-vessel bypass surgery. The patient is seen in room 260. Currently, he is on 3 L of oxygen. He is not receiving any IV fluids. He is getting about 600 cc on his incentive spirometer. He has no specific complaints today. White count is 10.9, hemoglobin 10.5, hematocrit 32.3, with a normal platelet count. Sodium 132, potassium 4, chloride 105, CO2 15, anion gap 12, BUN 29, creatinine 1.75. Glucose is 170. Albumin is 3.3. Chest x-ray shows a stable examination, with some basilar atelectasis. The patient is seen today June 02, 2023 in follow-up on the cardiac care unit. He is currently sitting up in a chair. Awake and alert in no acute distress. He is postoperative day #4. He is currently maintaining good O2 saturations in the 90s on 2 L/min per nasal cannula. He is afebrile. Hemodynamically stable. White count 8.1. Hemoglobin 10.3. Platelets 262. Sodium 136. Potassium 3.9. Bicarb 21. BUN 30. Creatinine 1.67. Glucose 135. Chest x-ray is showing impr luis atelectasis to the left hilar and left basilar region. Continues to work well with the incentive spirometer. He is continued on bronchodilators. Heparin for DVT prophylaxis. The patient is seen today June 03, 2023 in follow-up on the selective care unit. He is awake and alert in no acute distress. Sitting up in a chair at the bedside. Denies any shortness of breath, cough or congestion. Maintaining good O2 saturations in the 90s on room air. No IV fluids. Chest x-ray continues to show chronic changes without evidence of acute pulmonary process. White count 6.6. Hemoglobin 10.1. Platelets 314. Sodium 138. Potassium 4.2. Bicarb 21. BUN 26. Creatinine 1.50. Glucose 143. He is working well with the incentive spirometer. Continued on bronchodilators. Heparin for DVT prophylaxis. On today's evaluation on 06/04/2023, the patient is being seen for a follow-up. The patient is postop day #6 and the patient underwent three-vessel bypass surgery. The patient is currently on room air oxygen with a pulse ox of 96%. No respiratory difficulties. Cardiac rhythm is sinus. The white cell count at 9.4 with a hemoglobin of 10.9 and a platelet count of 430. BUN is at 26 with a creatinine of 1.4 as the patient sustained an acute kidney injury and the creatinine is gradually improving. Sodium is at 139 with a potassium level of 4.3. The chest x-ray from today shows tiny less than 5% biapical pneumothoraces and there is also small bilateral pleural effusions. Otherwise, the patient is clinically stable and hemodynamically stable and is utilizing incentive spirome ter. He is ambulating. He is on aspirin and Plavix. Also on metoprolol. At a dose of 100 mg twice daily. Also on Norvasc 5 mg p.o. daily. Objective - Vital Signs Vital signs: Vital Signs Temp 97.8 F 06/04/23 04:00 Pulse 92 06/04/23 08:00 Resp 18 06/04/23 08:00 BP 117/67 06/04/23 08:00 Pulse Ox 95 06/04/23 09:29 FiO2 50 05/29/23 16:01 Intake & Output 06/03/23 06/04/23 06/04/23 18:59 06:59 18:59 Intake Total 580 360 Output Total 600 1300 Balance -20 -1300 360 Weight 98.4 kg Intake: Oral 580 360 Output: Urine 600 1300 Other: Voiding Method Toilet Toilet ABP, PAP, CO, CI - Last Documented Arterial Blood Pressure 107/53 Pulmonary Artery Pressure 20/14 Cardiac Output 5.8 Cardiac Index 2.8 - Exam CONSTITUTIONAL: Sitting up to the bedside chair on the third floor cardiac stepdown unit, appears comfortable, cooperative, no apparent acute distress. HEENT: Neck is supple, no JVD, no lymphadenopathy. RESPIRATORY: Lungs sounds essentially clear throughout, diminished to his bilateral bases. Respirations are symmetrical and nonlabored. Currently on room air with oxygen saturations 95%. Able to achieve 1500 mL on his incentive spirometry. Strong cough. CARDIOVASCULAR: Regular rhythm and rate. S1 and S2 present, negative for S3, gallop or murmur. Remote telemetry showing normal sinus rhythm heart rate 77 bpm. Sternum is stable. Palpable peripheral pulses bilaterally, +1 edema to his bilateral lower extremities. No calf pain or tenderness noted. Heart hugger in place with patient demonstrating appropriate use. Knee-high ZAKI hose and sequential compression devices in place to his bilateral lower extremities. GASTROINTESTINAL: Abdomen soft, nontender, nondistended. Active bowel sounds present 4 quadrants. Tolerating diet. Passing flatus. No guarding or rigidity. Bowel movement on 06/02/2023 GENITOURINARY: Continues to void. Urine output 1300 mL in the last 8 hours. INTEGUMENTARY: Skin is warm and dry with no evidence of clubbing or cyanosis. Midline sternal incision clean dry and well approximated, covered with dry intact dressing. Right lower extremity EVH sites well approximated without redness or drainage. Left arm radial artery harvest sites clean, dry and approximated. No drainage or redness is present. NEUROLOGIC: Cranial nerves II through XII intact. Chronic left-sided weakness, residual from previous TIA. MUSKULOSKELETAL: Able to move all extremities, generalized weakness. PSYCHIATRIC: Alert and oriented to person place and time, appropriate affect, intact judgment and insight. - Labs CBC & Chem 7: 06/04/23 08:06 06/04/23 08:06 Labs: Abnormal Lab Results - Last 24 Hours (Table) 06/03/23 06/03/23 06/04/23 Range/Units 16:24 20:01 05:58 RBC (4.30-5.90) m/uL Hgb (13.0-17.5) gm/dL Hct (39.0-53.0) % Chloride (98-107) mmol/L Carbon Dioxide (22-30) mmol/L BUN (9-20) mg/dL Creatinine (0.66-1.25) mg/dL Glucose (74-99) mg/dL POC Glucose (mg/dL) 155 H 140 H 137 H (70-110) mg/dL 06/04/23 06/04/23 06/04/23 Range/Units 08:06 08:06 11:58 RBC 3.60 L (4.30-5.90) m/uL Hgb 10.9 L (13.0-17.5) gm/dL Hct 34.8 L (39.0-53.0) % Chloride 108 H (98-107) mmol/L Carbon Dioxide 18 L (22-30) mmol/L BUN 26 H (9-20) mg/dL Creatinine 1.46 H (0.66-1.25) mg/dL Glucose 153 H (74-99) mg/dL POC Glucose (mg/dL) 136 H (70-110) mg/dL Assessment and Plan Plan: Postop day #6, status post off-pump three-vessel bypass surgery Postthoracotomy and the chest was admitted moved and the patient is currently on room air oxygen. Very tiny less than 5% by apical pneumothoraces seen on today's chest x-ray. Nevertheless, the patient is not having any significant respiratory distress. Acute kidney injury, creatinine is gradually improving History of hypertension History of hyperlipidemia History of type 2 diabetes mellitus History of TIA x 4, with residual left-sided weakness History of BPH History of peripheral neuropathy History of colon cancer, status post colon resection Plan: Respiratory status is stable. Continues in the sinus parameter. Stable and on room air Chest x-ray from today was noted. Continued on bronchodilators Patient is currently on aspirin and Plavix Patient is on metoprolol Patient is on Norvasc Patient is on amiodarone for A-fib prophylaxis Heparin for DVT prophylaxis His activity as tolerated Home once cleared by CT services
== END 2023-06-04 15:18 | disposition home health service (06) | DRG 235 ==
LOC: 2ORMAIN 05-29 05:37 → 2SICU 05-29 12:17 → 3SCARD 06-01 14:00
PROVIDERS: ADMIT Thoracic Surgery (Cardiothoracic Vascular Surgery); ATTEND Thoracic Surgery (Cardiothoracic Vascular Surgery)
PROC: 02L70CK Occlusion of Left Atrial Appendage with Extraluminal Device, Open Approach (ICD-10-PCS; 2023-05-29)
PROC: B246ZZ4 Ultrasonography of Right and Left Heart, Transesophageal (ICD-10-PCS; 2023-05-29)
PROC: 5A1221Z Performance of Cardiac Output, Continuous (ICD-10-PCS; 2023-05-29)
PROC: 4A133B1 Monitoring of Arterial Pressure, Peripheral, Percutaneous Approach (ICD-10-PCS; 2023-05-29)
PROC: 4A133J1 Monitoring of Arterial Pulse, Peripheral, Percutaneous Approach (ICD-10-PCS; 2023-05-29)
PROC: 03HY32Z Insertion of Monitoring Device into Upper Artery, Percutaneous Approach (ICD-10-PCS; 2023-05-29)
PROC: 02HV33Z Insertion of Infusion Device into Superior Vena Cava, Percutaneous Approach (ICD-10-PCS; 2023-05-29)
PROC: 021309W Bypass Coronary Artery, Four or More Arteries from Aorta with Autologous Venous Tissue, Open Approach (ICD-10-PCS; principal; 2023-05-29 08:00)
PROC: 06BP4ZZ Excision of Right Saphenous Vein, Percutaneous Endoscopic Approach (ICD-10-PCS; 2023-05-29 08:00)
PROC: 06BQ4ZZ Excision of Left Saphenous Vein, Percutaneous Endoscopic Approach (ICD-10-PCS; 2023-05-29 08:00)
PROC: 06BP4ZZ Excision of Right Saphenous Vein, Percutaneous Endoscopic Approach (ICD-10-PCS; 2023-05-29 08:00)
DX: I25.10 Atherosclerotic heart disease of native coronary artery without angina pectoris (principal); J96.01 Acute respiratory failure with hypoxia; D62 Acute posthemorrhagic anemia; C18.9 Malignant neoplasm of colon, unspecified; N17.9 Acute kidney failure, unspecified; I69.354 Hemiplegia and hemiparesis following cerebral infarction affecting left non-dominant side; E11.42 Type 2 diabetes mellitus with diabetic polyneuropathy; E78.5 Hyperlipidemia, unspecified; I10 Essential (primary) hypertension; N40.0 Benign prostatic hyperplasia without lower urinary tract symptoms; I48.0 Paroxysmal atrial fibrillation; Z79.01 Long term (current) use of anticoagulants; Z88.8 Allergy status to other drugs, medicaments and biological substances; D72.829 Elevated white blood cell count, unspecified; G40.909 Epilepsy, unspecified, not intractable, without status epilepticus; H91.90 Unspecified hearing loss, unspecified ear; Z79.02 Long term (current) use of antithrombotics/antiplatelets; Z79.4 Long term (current) use of insulin; Z79.82 Long term (current) use of aspirin; Z79.84 Long term (current) use of oral hypoglycemic drugs; Z79.899 Other long term (current) drug therapy; Z82.49 Family history of ischemic heart disease and other diseases of the circulatory system; Z85.038 Personal history of other malignant neoplasm of large intestine; Z87.891 Personal history of nicotine dependence; Z90.49 Acquired absence of other specified parts of digestive tract; Z95.1 Presence of aortocoronary bypass graft; Z87.19 Personal history of other diseases of the digestive system
CPT/HCPCS: 71045; 71046; 76770; 80048; 80053; 82330; 82805; 83735; 84132; 85025; 85027; 85610; 85730; 86850; 86900; 86901; 86920; 94002; 94640; 94760

== ENCOUNTER 2023-06-22 11:48 | Day surgery (SDC) | payer MEDICARE ==
[2023-06-20 12:26] VITALS: BMI 32.1
[2023-06-22] MEDS: LACTATED RINGERS 1,000 ML IV ONE ×2 (12:01→14:16)
[2023-06-22 12:25] LABS: Glucose,Whole Blood 140 mg/dL (70-110)
[2023-06-22 12:44] VITALS: TEMP 97.8
[2023-06-22] MEDS: BENZOCAINE SPRAY 1 CAN TOPICAL ONE ×2 (13:08→13:45)
[2023-06-22] MEDS ORDERED: PROPOFOL 10 MG/ML 20 ML VIAL IV ONE (13:45)
--- NOTE | 2023-06-22 14:08 | P.TEE ---
Description of Procedure(s): Procedure performed: Transesophageal Echocardiogram with color flow doppler, pulsed wave doppler and continuous wave doppler, synchronized cardioversion Moderate conscious sedation: Moderate conscious sedation was supplied by anesthesia, see separate report. Complications: none Indications: Afib PROCEDURE: After the risks, benefits and alternatives of the above mentioned procedure was explained in detail with the patient, informed consent was obtained. Patient was brought to the lab in a fasting state. Patient was given sedation by anesthesia, see separate report. The throat was sprayed with Hurricane to anesthetize the throat. A lubricated Omni probe was then introduced into the esophagus and stomach and multiple views were obtained. 2D echo with color flow doppler, pulsed wave doppler and continuous wave doppler was utilized. Agitated saline bubbles were injected to assess for any intra- atrial shunt. The probe was then removed. There was no thrombus noted and therefore patient underwent synchronized cardioversion x 1 with 200J with resultant sinus rhythm. Patient tolerated the procedure well. Patient was transferred to the post procedure area in stable and satisfactory condition. FINDINGS: 1. The aortic valve is tricuspid and function normally. 2. The mitral valve appears be normal with mild regurgitation. 3. Tricuspid valve appears to be normal with mild moderate tricuspid regurgitation. 4. The interatrial septum has a PFO with an aneurysmal septum. 5. Left atrial appendage has been clipped and is free of clot. 6. Left ventricular EF is 40-45% with global hypokinesis
[2023-06-22 14:15] VITALS: RESP 16
[2023-06-22 14:48] LABS: Glucose,Whole Blood 118 mg/dL (70-110)
[2023-06-22 15:42] VITALS: BP 116/68; PULSE 61
== END 2023-06-22 15:42 | disposition home or self-care (01) ==
LOC: OR 11:48
PROVIDERS: ATTEND Internal Medicine
DX: I08.1 Rheumatic disorders of both mitral and tricuspid valves (principal); I48.91 Unspecified atrial fibrillation; I10 Essential (primary) hypertension; E78.5 Hyperlipidemia, unspecified; N40.0 Benign prostatic hyperplasia without lower urinary tract symptoms; Q21.12 Patent foramen ovale; E11.42 Type 2 diabetes mellitus with diabetic polyneuropathy; Z85.038 Personal history of other malignant neoplasm of large intestine; Z86.73 Personal history of transient ischemic attack (TIA), and cerebral infarction without residual deficits; Z79.84 Long term (current) use of oral hypoglycemic drugs; Z88.8 Allergy status to other drugs, medicaments and biological substances; Z79.899 Other long term (current) drug therapy; Z82.49 Family history of ischemic heart disease and other diseases of the circulatory system; Z79.82 Long term (current) use of aspirin; Z79.02 Long term (current) use of antithrombotics/antiplatelets
CPT/HCPCS: 93312; 93320; 93325; 92960; J2704

== ENCOUNTER → 2023-06-29 | Outpatient (CLI) | payer MEDICARE | END | disposition home or self-care (01) | LOC: LABWHC1 10:06 | PROVIDERS: ATTEND Urology | DX: N40.1 Benign prostatic hyperplasia with lower urinary tract symptoms (principal) | CPT/HCPCS: 36415; 84153 ==

== ENCOUNTER → 2023-07-18 | Outpatient (CLI) | payer MEDICARE ==
[2023-07-18 18:33] LABS: HGB 13.3 g/dL (13.0-17.0); MCH 27.9 pg (27.0-32.0); MCHC 30.9 g/dL (32.0-37.0); MCV 90.1 FL (80.0-97.0); Mean Platelet Volume 10.2 FL (9.5-12.2); NRBC Per 100 WBC 0 X 10*3/uL (0.00-0.01); Platelet Count 350 X 10*3/uL (140-440); RBC 4.77 X 10*6/uL (4.40-5.60); RDW 13.6 % (11.5-14.5); WBC 8.45 X 10*3/uL (4.50-10.00)
[2023-07-18 20:09] LABS: BUN/Creat Ratio 14.47 Ratio (12.00-20.00); Blood Urea Nitrogen 24.6 mg/dL (9.0-27.0); Calcium 10.2 mg/dL (8.7-10.3); Carbon Dioxide 17.1 mmol/L (21.6-31.8); Chloride 110 mmol/L (96-109); Glucose 219 mg/dL (70-110); Potassium 4.4 mmol/L (3.5-5.5); Sodium 142 mmol/L (135-145)
== END | disposition home or self-care (01) ==
LOC: LABWHC1 13:40
PROVIDERS: ATTEND Nurse Practitioner Acute Care
DX: R42 Dizziness and giddiness (principal)
CPT/HCPCS: 36415; 80048; 85027

== ENCOUNTER → 2023-10-23 | Outpatient (CLI) | payer MEDICARE ==
[2023-10-23 18:38] LABS: ALT 24 U/L (10-49); AST 28 U/L (14-35); BUN/Creat Ratio 16.83 Ratio (12.00-20.00); Blood Urea Nitrogen 30.3 mg/dL (9.0-27.0); Chloride 106 mmol/L (96-109); Chol/HDL Ratio 2.03 Ratio; Glucose 140 mg/dL (70-110); LDL Cholesterol,Calculated 22.9 mg/dL (0.0-131.0); Potassium 5.5 mmol/L (3.5-5.5); Sodium 140 mmol/L (135-145)
== END | disposition home or self-care (01) ==
LOC: LABWHC1 09:28
PROVIDERS: ATTEND Internal Medicine
DX: E78.2 Mixed hyperlipidemia (principal); I25.10 Atherosclerotic heart disease of native coronary artery without angina pectoris; E11.42 Type 2 diabetes mellitus with diabetic polyneuropathy
CPT/HCPCS: 36415; 80048; 80061; 83036; 84450; 84460

== ENCOUNTER → 2023-12-17 | Outpatient (CLI) | payer MEDICARE ==
--- NOTE | 2023-12-17 10:56 | MR ---
EXAMINATION TYPE: MR brain wo con DATE OF EXAM: 12/17/2023 10:35 AM CLINICAL INDICATION: Male, 73 years old with history of I67.9 CEREBROVASCULAR DISEASE; PHH, Memory lo ss, CVA COMPARISON: None. TECHNIQUE: Multi planar, multi sequence imaging was performed through the brain including: T1, T2, In version recovery, Diffusion weighted imaging, and gradient echo imaging. No gadolinium was given. FINDINGS: Mild cerebral atrophy with proportional dilation of ventricular system. Scattered foci of high T2 s ignal intensity are seen within the periventricular white matter. Midline structures show no abnormal ity. Diffusion-weighted imaging shows no evidence of restricted diffusion. The susceptibility weighte d images do not reveal any evidence for micro-hemorrhage. The bone marrow signal is within normal limits. Paranasal sinuses and mastoid air cells: No significant paranasal sinus disease. Visualized orbits: Orbital contents are intact. IMPRESSION: 1. No evidence of intracranial mass or acute/subacute infarct. 2. Minimal Nonspecific white matter changes, likely secondary to small vessel ischemic disease. [facility], , 12/17/2023 10:53 AM
== END | disposition home or self-care (01) ==
LOC: RADMRIMAIN 09:50
PROVIDERS: ATTEND Psychiatry & Neurology Neurology
CPT/HCPCS: 70551